=== PATIENT | female | born 1945 | race Caucasian/White ===

== ENCOUNTER → 2016-11-14 | Outpatient (CLI) | payer OTHER ==
[~2016-11-14] MED LIST: ADVIN50/60 INH; ALBUAER19 INH; ASPI-461 PO; BIOTCAP2 PO; CHOL1000 PO; CLB100 PO; CLIN300C10 PO; COEN1CAP17 PO; DIAZ2TAB PO; DOXY100C76 PO; DVN160125 PO; LEVO88TA PO; MECL1TAB42 PO; OMEP20CA59 PO; PRAV20TA PO; RIZA10TA18 PO; TRAM-10 PO; URSO300C4 PO; VERA120T8 PO
[2016-11-14 09:41] LABS: BASO % 0.7 %; BASO ABS # 0.04 K/uL (0-0.2); COMPLETE YES; EOS % 6.4 %; HEMATOCRIT 36.4 % (37-47); IG% 0.2 %; LYMPH % 33.6 %; LYMPH ABS # 1.94 K/uL (1.2-3.4); MEAN CELL VOLUME 85.6 fL (80-100); MEAN CORPUSCULAR HEMOGLOBIN 28.5 pg (25-34); MEAN CORPUSCULAR HGB CONC 33.2 g/dl (32-36); MONO % 5.2 %; NEUT % 53.9 %; PLATELET COUNT 202 K/uL (130-400); RED BLOOD COUNT 4.25 M/uL (4.2-5.4); WHITE BLOOD COUNT 5.77 K/uL (4.8-10.8)
[2016-11-14 09:47] LABS: URINE APPEARANCE CLEAR (CLEAR); URINE BILIRUBIN NEG (NEG); URINE COLOR YELLOW; URINE EPITHELIAL CELL AUTO 20-30 /lpf (0-5); URINE NITRITE NEG (NEG); URINE PH 5.5 (4.5-7.5); URINE SPECIFIC GRAVITY 1.029 (1.000-1.030); UROBILINOGEN NEG (NEG)
[2016-11-14 09:54] LABS: ESTIMATED AVERAGE GLUCOSE 128 mg/dl; HA1C FLAG Normal (Normal)
[2016-11-14 09:55] LABS: ALT/SGPT 22 U/L (12-78); AST/SGOT 21 U/L (15-37); BLOOD UREA NITROGEN 20 mg/dl (7-18); BUN/CREATININE RATIO 24.3 (10-20); CALCIUM 9.6 mg/dl (8.5-10.1); CARBON DIOXIDE 27 mmol/L (21-32); CHLORIDE 104 mmol/L (98-107); CHOLESTEROL 177 mg/dl (0-200); CREATININE 0.82 mg/dl (0.60-1.20); GLUCOSE 87 mg/dl (70-99); MANUAL MICROSCOPIC REQUIRED? NO; REVIEW REQ? NO; SODIUM 142 mmol/L (136-145); TRIGLYCERIDES 113 mg/dl (0-150); VERY LOW DENSITY LIPOPROT CALC 23 mg/dl
[2016-11-14 10:06] LABS: CHOLESTEROL/HDL RATIO 2.5; HDL CHOLESTEROL 70 mg/dl; LDL CHOLESTEROL CALCULATED 84 mg/dl
--- NOTE | 2016-11-18 11:29 | CODING QUERY MEDICAL NECESSITY ---
SUPPORTING DIAGNOSIS NEEDED A supporting diagnosis is required for the test/procedure performed on this patient in order for us to be reimbursed by the patient's insurance. Please provide a supporting diagnosis for the following test/procedure listed below next to the test name along with your signature. *If there is no additional diagnosis for this patient that would support the following test/procedure please document that below next to the test/procedure. Test(s)/Procedure(s) that require a supporting diagnosis: * GLYCATED HEMOGLOBIN DIAGNOSIS: * DOS: 11/14/16 Provider Signature: Date: Thank you Jessika Sinclair Health Information Management Once completed, please kindly fax back to [phone] For questions please call [phone]
== END | disposition home or self-care (01) ==
LOC: C.LAB 07:58
PROVIDERS: ATTEND Internal Medicine
DX: M81.0 Age-related osteoporosis without current pathological fracture (principal); M19.90 Unspecified osteoarthritis, unspecified site; E78.01 Familial hypercholesterolemia; R73.9 Hyperglycemia, unspecified

== ENCOUNTER → 2017-01-16 | Outpatient (CLI) | payer OTHER ==
[2017-01-16 14:54] LABS: BASO % 0.5 %; BASO ABS # 0.04 K/uL (0-0.2); COMPLETE YES; EOS % 3.9 %; HEMATOCRIT 39.9 % (37-47); IG% 0.1 %; LYMPH % 26.2 %; MEAN CELL VOLUME 88.1 fL (80-100); MEAN CORPUSCULAR HEMOGLOBIN 27.8 pg (25-34); MEAN CORPUSCULAR HGB CONC 31.6 g/dl (32-36); MEAN PLATELET VOLUME 11.9 fL (7.4-10.4); MONO % 4.6 %; NEUT % 64.7 %; PLATELET COUNT 202 K/uL (130-400); RED BLOOD COUNT 4.53 M/uL (4.2-5.4); WHITE BLOOD COUNT 7.62 K/uL (4.8-10.8)
[2017-01-16 15:34] LABS: ALT/SGPT 25 U/L (12-78); AST/SGOT 18 U/L (15-37); BLOOD UREA NITROGEN 19 mg/dl (7-18); CALCIUM 9.3 mg/dl (8.5-10.1); CARBON DIOXIDE 30 mmol/L (21-32); CHLORIDE 106 mmol/L (98-107); CREATININE 0.79 mg/dl (0.60-1.20); GLUCOSE 102 mg/dl (70-99); POTASSIUM 3.4 mmol/L (3.5-5.1); SODIUM 142 mmol/L (136-145)
[2017-01-16 15:45] LABS: ALB/GLOB RATIO 0.9 (0.9-2); ALKALINE PHOSPHATASE 117 U/L (45-117)
== END | disposition home or self-care (01) ==
LOC: C.LAB 12:59
PROVIDERS: ATTEND Physician Assistant
DX: H53.2 Diplopia (principal)

== ENCOUNTER → 2017-01-23 | Outpatient (CLI) | payer OTHER ==
[~2017-01-23] MED LIST changes: +GADAVIST IV PRN
--- NOTE | 2017-01-23 13:38 | DIAGNOSTIC IMAGING REPORT ---
MRI OF THE BRAIN WITHOUT AND WITH IV CONTRAST CLINICAL HISTORY: DOUBLE VISION COMPARISON STUDY: No previous studies for comparison. TECHNIQUE: MRI of the brain was performed from the vertex to the skull base utilizing various T1 and T2 weighted sequences. Following the IV administration of 6.5 mL of Gadavist contrast, additional enhanced images were obtained. The patient was imaged under 0.7 [place] open MRI scanner FINDINGS: Sagittal T1, axial diffusion, proton density and T2 weighted axial, coronal FLAIR, and pre and post axial T1-weighted images were acquired. These were supplemented with post gadolinium coronal T1 weighted images. No intra or extra-axial mass lesions are visualized. Axial diffusion-weighted images reveal no evidence of acute or subacute infarction. There is no evidence of ventricular dilatation. Proton density T2-weighted and FLAIR images reveal scattered foci of increased T2 signal within the white matter, likely on a small vessel basis. There are no abnormal flow voids. There is no evidence of pathologic enhancement. IMPRESSION: 1. No acute intracranial findings 2. No evidence of acute or subacute infarction 3. No evidence of intracranial mass 4. Foci of increased T2 signal within the white matter, likely on a small vessel basis Electronically signed by: Ghassan Worthy M.D. 01/23/2017 1:37 PM Dictated Date/Time: 01/23/2017 1:34 PM
== END | disposition home or self-care (01) ==
LOC: C.OPENMRI 12:28
PROVIDERS: ATTEND Physician Assistant
DX: H53.2 Diplopia (principal); R90.82 White matter disease, unspecified

== ENCOUNTER → 2017-03-06 | Outpatient (CLI) | payer OTHER ==
[~2017-03-06] MED LIST changes: -GADAVIST IV PRN
== END | disposition home or self-care (01) ==
LOC: C.RDSM 13:10
PROVIDERS: ATTEND Physical Medicine & Rehabilitation Sports Medicine
DX: Z96.659 Presence of unspecified artificial knee joint (principal)

== ENCOUNTER → 2017-04-12 | Outpatient (CLI) | payer OTHER ==
[2017-04-12 09:38] LABS: BASO % 0.4 %; BASO ABS # 0.03 K/uL (0-0.2); COMPLETE YES; EOS % 4.9 %; HEMATOCRIT 38.3 % (37-47); IG% 0.1 %; LYMPH % 28.8 %; LYMPH ABS # 1.95 K/uL (1.2-3.4); MEAN CELL VOLUME 88.5 fL (80-100); MEAN CORPUSCULAR HEMOGLOBIN 28.9 pg (25-34); MEAN CORPUSCULAR HGB CONC 32.6 g/dl (32-36); MONO % 4.4 %; NEUT % 61.4 %; PLATELET COUNT 207 K/uL (130-400); RED BLOOD COUNT 4.33 M/uL (4.2-5.4); WHITE BLOOD COUNT 6.77 K/uL (4.8-10.8)
[2017-04-12 09:49] LABS: ALT/SGPT 25 U/L (12-78); AST/SGOT 16 U/L (15-37); BLOOD UREA NITROGEN 21 mg/dl (7-18); BUN/CREATININE RATIO 23.5 (10-20); CALCIUM 9.5 mg/dl (8.5-10.1); CARBON DIOXIDE 33 mmol/L (21-32); CHLORIDE 105 mmol/L (98-107); CREATININE 0.89 mg/dl (0.60-1.20); GLUCOSE 87 mg/dl (70-99); SODIUM 141 mmol/L (136-145)
[2017-04-12 09:54] LABS: ALB/GLOB RATIO 0.9 (0.9-2); ALKALINE PHOSPHATASE 102 U/L (45-117)
[2017-04-12 09:58] LABS: URINE APPEARANCE CLEAR (CLEAR); URINE BILIRUBIN NEG (NEG); URINE COLOR YELLOW; URINE NITRITE NEG (NEG); URINE PH 7.5 (4.5-7.5); URINE SPECIFIC GRAVITY 1.009 (1.000-1.030); UROBILINOGEN NEG (NEG)
[2017-04-12 10:02] LABS: MANUAL MICROSCOPIC REQUIRED? NO; REVIEW REQ? NO
--- NOTE | 2017-04-18 11:58 | CODING QUERY MEDICAL NECESSITY ---
SUPPORTING DIAGNOSIS NEEDED A supporting diagnosis is required for the test/procedure performed on this patient in order for us to be reimbursed by the patient's insurance. Please provide a supporting diagnosis for the following test/procedure listed below next to the test name along with your signature. *If there is no additional diagnosis for this patient that would support the following test/procedure please document that below next to the test/procedure. Test(s)/Procedure(s) that require a supporting diagnosis: * VITAMIN D, 25-HYDROXY DIAGNOSIS: Provider Signature: Date: Thank you Noa Ramirez .[employer] Information Management Once completed, please kindly fax back to [phone] For questions please call [phone]
== END | disposition home or self-care (01) ==
LOC: C.LAB 08:19
PROVIDERS: ATTEND Internal Medicine
DX: E03.9 Hypothyroidism, unspecified (principal); I10 Essential (primary) hypertension; M19.90 Unspecified osteoarthritis, unspecified site; R73.9 Hyperglycemia, unspecified

== ENCOUNTER → 2017-06-27 | Outpatient (CLI) | payer OTHER | END | disposition home or self-care (01) | LOC: C.MAMM 07:48 | PROVIDERS: ATTEND Internal Medicine Rheumatology | DX: M85.852 Other specified disorders of bone density and structure, left thigh (principal); M85.851 Other specified disorders of bone density and structure, right thigh ==

== ENCOUNTER → 2017-07-25 | Outpatient (CLI) | payer OTHER ==
[2017-07-25 09:32] LABS: BASO % 0.6 %; BASO ABS # 0.04 K/uL (0-0.2); COMPLETE YES; EOS % 3.9 %; HEMATOCRIT 36.4 % (37-47); IG% 0.3 %; LYMPH % 30.3 %; LYMPH ABS # 2.01 K/uL (1.2-3.4); MEAN CELL VOLUME 87.9 fL (80-100); MEAN CORPUSCULAR HEMOGLOBIN 29.5 pg (25-34); MEAN CORPUSCULAR HGB CONC 33.5 g/dl (32-36); MEAN PLATELET VOLUME 11.3 fL (7.4-10.4); MONO % 6.2 %; NEUT % 58.7 %; PLATELET COUNT 209 K/uL (130-400); RED BLOOD COUNT 4.14 M/uL (4.2-5.4); WHITE BLOOD COUNT 6.64 K/uL (4.8-10.8)
[2017-07-25 09:47] LABS: ESTIMATED AVERAGE GLUCOSE 120 mg/dl; HA1C FLAG Normal (Normal)
[2017-07-25 10:05] LABS: CHOLESTEROL/HDL RATIO 2.3; THYROID STIMULATING HORMONE 2.85 uIu/ml (0.300-4.500)
== END | disposition home or self-care (01) ==
LOC: C.LAB 07:35
PROVIDERS: ATTEND Internal Medicine
DX: E78.01 Familial hypercholesterolemia (principal)

== ENCOUNTER → 2017-12-04 | Outpatient (CLI) | payer OTHER | END | disposition home or self-care (01) | LOC: C.RDSM 08:00 | PROVIDERS: ATTEND Physical Medicine & Rehabilitation Sports Medicine | DX: Z96.651 Presence of right artificial knee joint (principal) ==

== ENCOUNTER 2020-06-02 13:20 | Inpatient (IN) ==
[2020-06-02] MEDS ORDERED: ONDANSETRON INJ 2 MG/ML 2 ML VIAL IV STA (14:02)
[2020-06-02] MEDS ORDERED: SODIUM CHLORIDE 0.9% 1000ML 2,000 ML IV SCH (14:15)
[2020-06-02 14:32] LABS: Hematocrit (blood only) 38.3 % (37-47); Hemoglobin 13.3 g/dL (12.0-16.0); Mean Corpuscular Hemoglobin 28.7 pg (25-34); Mean Corpuscular Hgb Conc 34.7 g/dL (32-36); Mean Corpuscular Volume 82.5 fL (80-100); Mean Platelet Volume 10.9 fL (7.4-10.4); Platelet Count 252 K/uL (130-400); RDW Coefficient of Variation 15.1 % (11.5-14.5); RDW Standard Deviation 45.5 fL (36.4-46.3); Red Blood Count 4.64 M/uL (4.2-5.4); White Blood Count 5.28 K/uL (4.8-10.8)
[2020-06-02 14:40] LABS: INR 1.2 (0.9-1.1); Prothrombin Time 12.2 Seconds (9.0-12.0)
[2020-06-02 14:41] LABS: Albumin Level 2.4 gm/dl (3.4-5.0); BUN Creatinine Ratio 13.2 (10-20); Calcium 7.5 mg/dl (8.5-10.1); Est GFR (African American) 13.4; Est GFR (Non-African American) 11.6; Potassium 4.4 mmol/L (3.5-5.1)
--- NOTE | 2020-06-02 14:43 | Emergency Department Note ---
History of Present Illness General Chief complaint: Abdominal Pain Stated complaint: STOMACH PAINS/DIARRHEA Time Seen by Provider: 06/02/20 13:52 Source: patient Mode of arrival: ambulatory Limitations: no limitations History of Present Illness Provider complaint: Generalized weakness and diarrhea This is a 74-year-old female who presents to the ED with a chief complaint of generalized weakness, no appetite because food tastes bad, diffuse abdominal tenderness as well as diarrhea. She states that most of her symptoms started Monday evening, 4 days ago. She was seen here on Monday and had some laboratory studies that showed some electrolyte abnormalities but otherwise no significant abnormalities were noted. The patient was discharged home after hydration. She states that she is feeling worse now. She states that she has been having diarrhea once per hour today. She has a little bit of nausea. No vomiting. She has not had a fever. Home Medications Home Medications Medication Instructions Recorded Confirmed Type cholecalciferol (vitamin D3) 2,000 unit PO QAM 04/16/19 05/31/20 History [Vitamin D3] clindamycin HCl 600 mg PO DAILY PRN 04/16/19 05/31/20 History coenzyme Q10 [CoQ-10] 100 mg PO QAM 04/16/19 05/31/20 History diphenhydramine-acetaminophen 1 tab PO Q6H PRN 04/16/19 05/31/20 History [Tylenol PM Extra Strength] fluticasone propion-salmeterol 1 inh INHALATION QAM 04/16/19 05/31/20 History [Advair Diskus] hydroxychloroquine [Plaquenil] 200 mg PO QAM 04/16/19 05/31/20 History tramadol 50 mg PO Q6H PRN 04/16/19 05/31/20 History biotin 5,000 mcg disintegrating 5,000 mcg PO QAM tab 08/05/19 05/31/20 History tablet omeprazole 20 mg tablet,delayed 20 mg PO QAM #90 tab 09/23/19 05/31/20 Rx release verapamil 120 mg tablet,extended 120 mg PO QAM #90 tab 09/23/19 05/31/20 Rx release rizatriptan 10 mg disintegrating See Rx Instructions PO .COMPLEX 30 01/10/20 Rx tablet Days #9 tab prednisone 5 mg tablet 5 mg PO PRN tab 02/20/20 05/31/20 History cyclobenzaprine 5 mg tablet 5 mg PO BID PRN 30 Days #60 tab 02/26/20 05/31/20 Rx hydrocodone 5 mg-acetaminophen 325 0.5 tab PO UD PRN tab 05/21/20 05/31/20 History mg tablet sulfasalazine 500 mg tablet 1 g PO BID tab 05/21/20 05/31/20 History famotidine 20 mg PO BID #20 tab 05/31/20 Rx hydrochlorothiazide 12.5 mg PO QAM 05/31/20 05/31/20 History levothyroxine 100 mcg PO QAM 05/31/20 05/31/20 History losartan 100 mg PO QAM 05/31/20 05/31/20 History ondansetron 4 mg PO Q6H PRN #14 tab 05/31/20 Rx potassium chloride [Klor-Con M20] 20 meq PO BID #10 tab 05/31/20 Rx pravastatin 20 mg PO HS 05/31/20 05/31/20 History diazepam 5 mg tablet 5 mg PO ONCE PRN #5 tab 06/01/20 Rx Allergies Allergy/AdvReac Type Severity Reaction Status Date / Time Penicillins Allergy Mild RASH Verified 05/31/20 14:58 oxycodone Allergy Unknown severe Verified 05/31/20 14:58 nausea/vomiting clarithromycin [From Biaxin] Allergy Unknown Verified 05/31/20 14:58 codeine AdvReac Intermediate UPSET Verified 05/31/20 14:58 STOMACH, NO REACTIONS TO OTHER NARCOTICS Sulfa (Sulfonamide AdvReac Mild GI UPSET Verified 05/31/20 14:58 Antibiotics) adhesive AdvReac Unknown RASH AND Verified 05/31/20 14:58 REDNESS latex AdvReac Unknown Verified 05/31/20 14:58 Past Med/Surg History Medical History Asthma GERD (gastroesophageal reflux disease) HX: breast cancer 1999 - HAD RADIATION AND TAMOXIFEN Hyperlipidemia Hyperthyroidism Hypothyroid Migraine Osteoarthritis Osteopenia Positional vertigo Surgical History History of colonoscopy History of knee replacement procedure of right knee History of lumpectomy of left breast Hx of hernia repair Hx of right cataract extraction Family History Mother No pertinent family history Social History Smoking Status: Never smoker Second Hand Exposure: No; Hx Alcohol Use: No Hx Substance Use: Yes Substance Use Type Other:: CBD OIL Preferred Language: Palestinian Communication Ability: Effective Furnace Fitter Required: No Beliefs That Will Affect Care: None Current Living Situation: Spouse Other Information That Helps Us Care for You: No Feels Safe at Home: Yes Safety Concerns: Feels Safe At This Time Assistive Devices: Glasses and Walker Review of Systems A total of 10 systems reviewed and were otherwise negative Physical Exam Vital Signs Vital Signs - 24 hr 06/02/20 13:53 06/02/20 14:08 06/02/20 14:18 Temperature 36.4 C L Temperature Source Oral Pulse Rate 130 H 132 H Pulse Rate [Right Finger] Respiratory Rate 20 16 Respiratory Depth Normal Blood Pressure 71/44 L 81/45 L Blood Pressure [Right Arm] Blood Pressure Mean 53 54 Blood Pressure Mean [Right Arm] Blood Pressure Position Lying Pulse Oximetry 95 Oxygen Delivery Method Room Air Room Air Sepsis New/Unexplained Change in Mental Status No Sepsis Action Taken by Nursing Physician Notified 06/02/20 14:20 06/02/20 14:55 06/02/20 15:00 Temperature Temperature Source Pulse Rate 112 H Pulse Rate [Right Finger] 128 H 109 H Respiratory Rate 16 21 24 Respiratory Depth Blood Pressure 88/24 L Blood Pressure [Right Arm] 81/45 L 75/49 L Blood Pressure Mean 31 Blood Pressure Mean [Right Arm] 57 57 Blood Pressure Position Pulse Oximetry 98 Oxygen Delivery Method Room Air Sepsis New/Unexplained Change in Mental Status Sepsis Action Taken by Nursing 06/02/20 15:04 06/02/20 15:12 06/02/20 15:29 Temperature Temperature Source Pulse Rate 110 H 109 H Pulse Rate [Right Finger] Respiratory Rate 20 23 Respiratory Depth Blood Pressure 75/49 L 78/47 L 68/44 L Blood Pressure [Right Arm] Blood Pressure Mean 56 62 48 Blood Pressure Mean [Right Arm] Blood Pressure Position Pulse Oximetry Oxygen Delivery Method Sepsis New/Unexplained Change in Mental Status Sepsis Action Taken by Nursing 06/02/20 15:30 06/02/20 15:35 Temperature Temperature Source Pulse Rate 100 H 118 H Pulse Rate [Right Finger] Respiratory Rate 19 23 Respiratory Depth Blood Pressure 79/41 L 79/56 L Blood Pressure [Right Arm] Blood Pressure Mean 45 59 Blood Pressure Mean [Right Arm] Blood Pressure Position Pulse Oximetry Oxygen Delivery Method Sepsis New/Unexplained Change in Mental Status Sepsis Action Taken by Nursing CONSTITUTIONAL/VITAL SIGNS: Reviewed / noted above. GENERAL: Generally not well in appearance. INTEGUMENTARY: Warm, dry, and [place]. HEAD: Normocephalic. EYES: without scleral icterus or trauma. ENT/OROPHARYNX: clear and dry. LYMPHADENOPATHY/NECK: Is supple without lymphadenopathy or meningismus. RESPIRATORY: Lungs clear and equal. CARDIOVASCULAR: Rapid rate irregular rhythm. Systolic ejection murmur. GI/ABDOMEN: Soft and diffusely tender. No organomegaly or pulsatile mass. No rebound or guarding. Normal bowel sounds. EXTREMITIES: Warm and well perfused. NEUROLOGICAL: Intact without focal deficits. PSYCHIATRIC: normal affect. MUSCULOSKELETAL: Normally developed with good muscle tone. TRIAGE NURSING DOCUMENTATION REVIEWED. Course Administered Medications Discontinued Medications Hydrocortisone Sodium Succinate (Hydrocortisone Sod Succinate 100 Mg/2 Ml Vial) 50 mg IV NOW STA Stop: 06/02/20 15:24 Last Admin: 06/02/20 15:33 Dose: 50 mg Documented by: [id number] Sodium Chloride (Nss 1000ml) 2,000 mls @ 999 mls/hr IV .Q2H1M LUCIANO Stop: 06/02/20 16:15 Last Admin: 06/02/20 14:24 Dose: 999 mls/hr Documented by: [id number] Sodium Chloride (Nss 1000ml) 1,000 mls @ 999 mls/hr IV .Q1H1M ONE Stop: 06/02/20 16:13 Last Admin: 06/02/20 15:29 Dose: 999 mls/hr Documented by: [id number] Ondansetron HCl (Ondansetron Inj 2 Mg/Ml 2 Ml Vial) 4 mg IV NOW STA Stop: 06/02/20 14:03 Last Admin: 06/02/20 14:25 Dose: 4 mg Documented by: [id number] Medical Decision Making Differential Diagnosis Differential includes acute coronary syndrome, myocardial infarction, CVA, TIA, anemia, infection, pneumonia, UTI, pyelonephritis, poor nutrition, dehydration, electrolyte disturbance,hypoglycemia. Medical Records Attestation: I reviewed the patient's medical records. Laboratory Data Result diagrams: 06/02/20 13:51 06/02/20 13:51 Lab Results 06/02/20 06/02/20 06/02/20 Range/Units 13:51 13:51 13:51 WBC 5.28 (4.8-10.8) K/uL RBC 4.64 (4.2-5.4) M/uL Hgb 13.3 (12.0-16.0) g/dL Hct 38.3 (37-47) % MCV 82.5 (80-100) fL MCH 28.7 (25-34) pg MCHC 34.7 (32-36) g/dL RDW Std Deviation 45.5 (36.4-46.3) fL RDW Coeff of Lion 15.1 H (11.5-14.5) % Plt Count 252 (130-400) K/uL MPV 10.9 H (7.4-10.4) fL Neutrophils % (Manual) 25.2 % Lymphocytes % (Manual) 31.3 % Monocytes % (Manual) 10.4 % Eosinophils % (Manual) 0.9 % Basophils % (Manual) 0.9 % Metamyelocytes % (Man) 11.3 % Myelocytes % (Man) 3.5 % Neutrophils # (Manual) 1.33 L (1.4-6.5) K/uL Total Absolute Neuts 1.33 L (1.4-6.5) K/uL Lymphocytes # (Manual) 1.65 (1.2-3.4) K/uL Total Abs Lymphocytes 2.52 (1.2-3.4) K/uL Monocytes # (Manual) 0.55 (0.11-0.59) K/uL Eosinophils # (Manual) 0.05 (0-0.5) K/uL Basophils # (Manual) 0.05 (0-0.2) K/uL Metamyelocytes # (Man) 0.60 H (0-0) K/uL Myelocytes # (Manual) 0.18 H (0-0) K/uL Large Granular Lymphs 16.5 % # Lrg Granular Lymphs 0.87 K/uL Dohle Bodies 2+ Echinocytes 3+ PT 12.2 H (9.0-12.0) Seconds INR 1.2 H (0.9-1.1) Sodium 129 L (136-145) mmol/L Potassium 4.4 (3.5-5.1) mmol/L Chloride 97 L (98-107) mmol/L Carbon Dioxide 16 L (21-32) mmol/L Anion Gap 16.0 H (3-11) BUN 48 H (7-18) mg/dl Creatinine 3.61 H (0.6-1.2) mg/dl Est Cr Clr Drug Dosing 13.0 ml/min Est GFR ( Amer) 13.4 Est GFR (Non-Af Amer) 11.6 BUN/Creatinine Ratio 13.2 (10-20) Glucose 115 H (70-99) mg/dl Lactate (0.4-2.0) mmol/L Calcium 7.5 L (8.5-10.1) mg/dl Magnesium 2.0 (1.8-2.4) mg/dl Total Bilirubin 0.7 (0.2-1) mg/dl AST 36 (15-37) U/L ALT 36 (12-78) U/L Alkaline Phosphatase 131 H (45-117) U/L Total Creatine Kinase 429 H (26-192) U/L Troponin I 0.183 H* (0-0.045) ng/ml Total Protein 6.3 L (6.4-8.2) gm/dl Albumin 2.4 L (3.4-5.0) gm/dl Globulin 3.9 (2.5-4.0) gm/dl Albumin/Globulin Ratio 0.6 L (0.9-2) Lipase 88 (73-393) U/L TSH 4.380 (0.300-4.500) uIu/ml Stl C. diff Tox B Gene (Neg) 06/02/20 06/02/20 Range/Units 14:00 15:07 WBC (4.8-10.8) K/uL RBC (4.2-5.4) M/uL Hgb (12.0-16.0) g/dL Hct (37-47) % MCV (80-100) fL MCH (25-34) pg MCHC (32-36) g/dL RDW Std Deviation (36.4-46.3) fL RDW Coeff of Lion (11.5-14.5) % Plt Count (130-400) K/uL MPV (7.4-10.4) fL Neutrophils % (Manual) % Lymphocytes % (Manual) % Monocytes % (Manual) % Eosinophils % (Manual) % Basophils % (Manual) % Metamyelocytes % (Man) % Myelocytes % (Man) % Neutrophils # (Manual) (1.4-6.5) K/uL Total Absolute Neuts (1.4-6.5) K/uL Lymphocytes # (Manual) (1.2-3.4) K/uL Total Abs Lymphocytes (1.2-3.4) K/uL Monocytes # (Manual) (0.11-0.59) K/uL Eosinophils # (Manual) (0-0.5) K/uL Basophils # (Manual) (0-0.2) K/uL Metamyelocytes # (Man) (0-0) K/uL Myelocytes # (Manual) (0-0) K/uL Large Granular Lymphs % # Lrg Granular Lymphs K/uL Dohle Bodies Echinocytes PT (9.0-12.0) Seconds INR (0.9-1.1) Sodium (136-145) mmol/L Potassium (3.5-5.1) mmol/L Chloride (98-107) mmol/L Carbon Dioxide (21-32) mmol/L Anion Gap (3-11) BUN (7-18) mg/dl Creatinine (0.6-1.2) mg/dl Est Cr Clr Drug Dosing ml/min Est GFR ( Amer) Est GFR (Non-Af Amer) BUN/Creatinine Ratio (10-20) Glucose (70-99) mg/dl Lactate 2.1 H* (0.4-2.0) mmol/L Calcium (8.5-10.1) mg/dl Magnesium (1.8-2.4) mg/dl Total Bilirubin (0.2-1) mg/dl AST (15-37) U/L ALT (12-78) U/L Alkaline Phosphatase (45-117) U/L Total Creatine Kinase (26-192) U/L Troponin I (0-0.045) ng/ml Total Protein (6.4-8.2) gm/dl Albumin (3.4-5.0) gm/dl Globulin (2.5-4.0) gm/dl Albumin/Globulin Ratio (0.9-2) Lipase (73-393) U/L TSH (0.300-4.500) uIu/ml Stl C. diff Tox B Gene Negative Cdiff Gene (Neg) Imaging Data Radiologist's Impression: SINGLE VIEW CHEST CLINICAL HISTORY: Generalized weakness. FINDINGS: An AP, portable, upright chest radiograph is compared to study dated 04/30/2015. The cardiomediastinal silhouette is unremarkable noting mild atherosclerotic calcification of the thoracic aorta. There is mild elevation of right hemidiaphragm. The lungs and pleural spaces are clear. No pneumothorax is seen. The skeletal structures are osteopenic. The bony thorax is grossly intact. Surgical clips are noted in the left breast. IMPRESSION: No active disease in the chest. CT scan of the abdomen pelvis:IMPRESSION: 1. Small bowel wall thickening with multiple air-fluid levels. The findings are indicative of an enteritis. 2. No evidence of bowel obstruction. No evidence of free air 3. No evidence of pneumatosis. No evidence of portal venous gas 4. Nonspecific coarsened trabecular markings involving the right inferior pubic ramus ECG Data Attestation: I personally reviewed and interpreted this ECG as follows: Indication: weakness Rate (beats per minute): 128 Rhythm: atrial fibrillation Findings: no PVC and no ST elevation MDM Narrative This is a 74-year-old female who presents to the ED with a chief complaint of weakness, decreased p.o. intake and diarrhea for the past 4 days. She was seen 2 days ago for the same. Today she is hypotensive. Her BUN is 48 and creatinine is 3.6. Troponin is elevated 0.183. She has new onset A. fib with a heart rate in the 120s to 130s. She is acidotic with a bicarb of 16 and an anion gap of 16. Lipase was negative. Sodium is 129. Lactic acid was 2.1. CT scan of the abdomen pelvis shows enteritis. The patient was given 3 L of normal saline initially. She was given IV Zofran. She was given a stress dose hydrocortisone as she is on prednisone chronically. A 4th L of normal saline was started as the patient was going to the ICU. The patient clinically improved somewhat during her ED stay. Her tachycardia improved some. Her atrial fibrillation persisted. She remained hypotensive with blood pressures in the high 70s to low 80s during her ED stay. I was going to place a central line but the admission team spoke with the public relations account executive and they will do that in the ICU. Impression & Plan Diarrhea, Atrial fibrillation with RVR, New onset a-fib, Acute dehydration, Acute renal failure, Acute hyponatremia, Elevated troponin Critical Care Time Critical Care Time: Yes Total Critical Care Time: 40 I have personally spent 40 minutes of critical care time in the direct management of this patient. This includes bedside care, interpretation of diagnostic studies, and testing, discussion with consultants, patient, and family members, and other required patient management activities. This 40 minutes is in excess of all separately billable procedures. Discharge Plan Visit Data Chief Complaint: Abdominal Pain Stated Complaint: STOMACH PAINS/DIARRHEA ED Provider: Jamir Salomon Discharge Problem: Diarrhea, Atrial fibrillation with RVR, New onset a-fib, Acute dehydration, Acute renal failure, Acute hyponatremia, Elevated troponin Patient Disposition: Admitted As Inpatient Forms Stand Alone Forms: My [facility] Prescriptions Prescriptions: No Action omeprazole 20 mg tablet,delayed release (DR/EC) 20 mg PO QAM Qty: 90 RF: 3 verapamil 120 mg tablet extended release 120 mg PO QAM Qty: 90 RF: 3 rizatriptan 10 mg tablet,disintegrating See Rx Instructions PO .COMPLEX 30 Days Qty: 9 RF: 1 cyclobenzaprine 5 mg tablet 5 mg PO BID PRN (Reason: muscle spasm) 30 Days Qty: 60 RF: 0 diazepam 5 mg tablet 5 mg PO ONCE PRN (Reason: anxiety) Qty: 5 RF: 0 prednisone 5 mg tablet 5 mg PO PRN RF: 0 sulfasalazine 500 mg tablet 1 g PO BID RF: 0 hydrocodone-acetaminophen 5-325 mg tablet 0.5 tab PO UD PRN (Reason: pain) RF: 0 pravastatin 20 mg tablet 20 mg PO HS RF: 0 losartan 100 mg tablet 100 mg PO QAM RF: 0 hydrochlorothiazide 12.5 mg tablet 12.5 mg PO QAM RF: 0 levothyroxine 100 mcg capsule 100 mcg PO QAM RF: 0 potassium chloride [Klor-Con M20] 20 mEq tablet,ER particles/crystals 20 meq PO BID Qty: 10 RF: 0 famotidine 20 mg tablet 20 mg PO BID Qty: 20 RF: 0 ondansetron 4 mg tablet,disintegrating 4 mg PO Q6H PRN (Reason: nausea and vomiting) Qty: 14 RF: 0 fluticasone propion-salmeterol [Advair Diskus] 250-50 mcg/dose Blister With Device 1 inh INHALATION QAM RF: 0 clindamycin HCl 300 mg Capsule 600 mg PO DAILY PRN (Reason: DENTAL WORK) RF: 0 tramadol 50 mg Tablet 50 mg PO Q6H PRN (Reason: Pain) RF: 0 hydroxychloroquine [Plaquenil] 200 mg Tablet 200 mg PO QAM RF: 0 diphenhydramine-acetaminophen [Tylenol PM Extra Strength] 25-500 mg Tablet 1 tab PO Q6H PRN (Reason: Sleep) RF: 0 coenzyme Q10 [CoQ-10] 100 mg Capsule 100 mg PO QAM RF: 0 cholecalciferol (vitamin D3) [Vitamin D3] 2,000 unit Tablet 2,000 unit PO QAM RF: 0 biotin 5,000 mcg tablet,disintegrating 5,000 mcg PO QAM RF: 0 Referrals Referrals: Cuate Méndez MD [Primary Care Provider] -
--- NOTE | 2020-06-02 14:47 | XRay Report ---
SINGLE VIEW CHEST CLINICAL HISTORY: Generalized weakness. FINDINGS: An AP, portable, upright chest radiograph is compared to study dated 04/30/2015. The cardiom ediastinal silhouette is unremarkable noting mild atherosclerotic calcification of the thoracic aorta . There is mild elevation of right hemidiaphragm. The lungs and pleural spaces are clear. No pneumoth orax is seen. The skeletal structures are osteopenic. The bony thorax is grossly intact. Surgical cli ps are noted in the left breast. IMPRESSION: No active disease in the chest. ACT 112: Negative or not required by law. Electronically signed by: Nick Templeton M.D. 06/02/2020 2:46 PM
[2020-06-02 14:53] LABS: Albumin Globulin Ratio 0.6 (0.9-2); Bilirubin,Total 0.7 mg/dl (0.2-1); Globulin 3.9 gm/dl (2.5-4.0); Thyroid Stimulating Hormone 4.38 uIu/ml (0.300-4.500); Total Protein 6.3 gm/dl (6.4-8.2); Troponin I 0.183 ng/ml (0-0.045)
[2020-06-02] MEDS ORDERED: SODIUM CHLORIDE 0.9% 1000ML 1,000 ML IV ONE ×2 (15:13→16:46)
--- NOTE | 2020-06-02 15:19 | History & Physical Report ---
Date of Service June 02, 2020 Assessment & Plan (1) Gastroenteritis: 74 yo F with PMH inflammatory polyarthritis on chronic prednisone and Plaquenil, HTN, HLD, breast cancer treated with tamoxifen who was admitted for gastroenteritis, severe diarrhea and acidosis, hypovolemic shock and new onset Afib. Ct abd/Pelv showed thickening of bowel wall with air fluid loops, no pneumoperitoneum or portal venous gas or intestinal pneumatosis, most likely enteritis. unsure if viral or bacterial at this time blood cultures drawn, started on empiric Vanc, cefepime, metronidazole (penicillin allergy) Stool studies ordered (Stool WBC, culture, ova+parasites) Cdiff negative today, covid negative 2 days ago with no new contacts (2) Hypovolemic shock: s/p 3L of NS bolus in Ed without improvement in BP Goal MAP >60 most likely secondary to dehydration/diarrhea as no signs of bleeding or other volume losses received 1 dose of 50 mg hydrocortisone IV for BP support given chronic steroid use for arthritis. Continue 50 mg hydrocortisone Q6H -Follow lactate-was elevated at 2.1 on admission Admitting to ICU to start vasopressors Appreciate self propelled dredge operator consultation (3) JS (acute kidney injury): With creatinine up to 3.61 on admission from baseline of 1.1 two days ago With associated anion gap metabolic acidosis, hyponatremia Most likely prerenal from volume depletion in the setting of taking thiazide diuretics and ARB, however with hypotension could be ATN. With granular casts in urinalysis Checking fractional excretion of sodium, however has been taking hydrochlorothiazide and losartan at home CT abdomen/pelvis without evidence of obstruction in the system -Holding home losartan, hydrochlorothiazide, potassium -Hydrating aggressively with volume resuscitation and treating with vasopressors for severe hypotension Follow serial BMP (4) New onset a-fib: Started on heparin drip with bolus for anticoagulation/clot breakdown TTE ordered cardiology consulted Troponin elevated at 0.183, trending Q6, next at 7pm Not able to rate control given hypotension, but hydrating and hopefully this will help her rates (5) Diarrhea: As above (6) Atrial fibrillation with RVR: As above (7) Acute hyponatremia: Na of 129 on admission should improve with hydration, will continue to monitor BMP repeat at 7pm with repeat troponin (8) Elevated troponin: Likely myocardial demand ischemia in the setting of profound hypotension and rapid atrial fibrillation No ischemia on ECG and no chest pain Trend troponin Checking echocardiogram (9) Acute dehydration: As above (10) Inflammatory polyarthritis: normally on 5 mg pred daily IV steroids as above for stress dose steroids continue hydroxychloroquine per home regimen, but consider holding in the setting of acute infection -Sulfasalazine is also prescribed to her as of 1 month ago, however it is not on her home medication reconciliation-nonetheless, will hold (11) Hypothyroidism: continue home levothyroxine (12) Hypertension: hold all home BP meds in setting of hypotension (13) Essential familial hypercholesterolemia: continue statin (14) Aortic stenosis: Noted in history, but no echo in the [facility] Checking echocardiogram here (15) Asthma: not on maintenance therapy O2 as needed for O2 sat goal >90% DVT ppx: on heparin drip FEN/GI: NPO, NS at maintenance 125 cc/hr Code status: full code Dispo: ICU History of Present Illness 74 yo F presenting to ER with complaints of ongoing diarrhea and general lethargy. She was seen in the ER 2 nights ago, tested negative for covid, hydrated and discharged. Since then she states her diarrhea has worsened and is going more frequently. She describes the stool as loose, but not frankly watery. She denies any melanotic stool, hematochezia, vomiting, hematemesis, or nausea. She does have diffuse abdominal pain that is present as well as cramping that comes and goes. She denies any known fevers or sick contacts but has had chills and night sweats for the past 2 days. She denies having an appetite because nothing tastes good or seems appealing, but her has been ensuring she takes in fluid (had 10 oz prior to ER visit today and 48 oz yesterday). She reports her symptoms came on fairly quickly after eating a brownie from [employer] on Monday. Of note she was recently seen by her PCP on the and started on a medrol dose pack for worsening polyinflammatory arthritis, and then was placed on tramadol and tylenol for pain control on the after return of symptoms off of the dose pack. In the ER she was given 3L of bolus NS without improvement in BP, found to have lactic acid of 2.1, acidosis with bicarb of 16, anion gap of 16. She was also noted to be in new onset rapid atrial fibrillation and had a mildly positive troponin. She will be admitted for monitoring of lactic acidosis and hypovolemic shock secondary to a viral vs bacterial enteritis and possible bacteremia. Also with new onset rapid atrial fibrillation. Primary Care Provider: Cuate Méndez MD Allergies Allergy/AdvReac Type Severity Reaction Status Date / Time Penicillins Allergy Mild RASH Verified 06/02/20 17:35 oxycodone Allergy Unknown severe Verified 06/02/20 17:35 nausea/vomiting clarithromycin [From Biaxin] Allergy Unknown Verified 06/02/20 17:35 codeine AdvReac Intermediate UPSET Verified 06/02/20 17:35 STOMACH, NO REACTIONS TO OTHER NARCOTICS Sulfa (Sulfonamide AdvReac Mild GI UPSET Verified 06/02/20 17:35 Antibiotics) adhesive AdvReac Unknown RASH AND Verified 06/02/20 17:35 REDNESS latex AdvReac Unknown Verified 06/02/20 17:35 Home Medications Home Medications Medication Instructions Recorded Confirmed Type cholecalciferol (vitamin D3) 2,000 unit PO QAM 04/16/19 06/02/20 History [Vitamin D3] clindamycin HCl 600 mg PO DAILY PRN 04/16/19 06/02/20 History coenzyme Q10 [CoQ-10] 100 mg PO QAM 04/16/19 06/02/20 History diphenhydramine-acetaminophen 1 tab PO HS PRN 04/16/19 06/02/20 History [Tylenol PM Extra Strength] fluticasone propion-salmeterol 1 inh INHALATION QAM PRN 04/16/19 06/02/20 History [Advair Diskus] hydroxychloroquine [Plaquenil] 200 mg PO QAM 04/16/19 06/02/20 History tramadol 50 mg PO Q6H PRN 04/16/19 06/02/20 History biotin 5,000 mcg disintegrating 5,000 mcg PO QAM tab 08/05/19 06/02/20 History tablet omeprazole 20 mg tablet,delayed 20 mg PO QAM #90 tab 09/23/19 06/02/20 Rx release verapamil 120 mg tablet,extended 120 mg PO QAM #90 tab 09/23/19 06/02/20 Rx release rizatriptan 10 mg disintegrating See Rx Instructions PO .COMPLEX 30 01/10/20 06/02/20 Rx tablet Days #9 tab prednisone 5 mg tablet 5 mg PO PRN tab 02/20/20 06/02/20 History cyclobenzaprine 5 mg tablet 5 mg PO BID PRN 30 Days #60 tab 02/26/20 06/02/20 Rx hydrocodone 5 mg-acetaminophen 325 0.5 tab PO UD PRN tab 05/21/20 06/02/20 History mg tablet famotidine 20 mg PO BID #20 tab 05/31/20 06/02/20 Rx hydrochlorothiazide 12.5 mg PO QAM 05/31/20 06/02/20 History levothyroxine 100 mcg PO QAM 05/31/20 06/02/20 History losartan 100 mg PO QAM 05/31/20 06/02/20 History ondansetron 4 mg PO Q6H PRN #14 tab 05/31/20 06/02/20 Rx potassium chloride [Klor-Con M20] 20 meq PO BID #10 tab 05/31/20 06/02/20 Rx pravastatin 20 mg PO HS 05/31/20 06/02/20 History Past Med/Surg History Medical History Aortic stenosis Asthma Asthma Atrial fibrillation with RVR Breast cancer Cervical radiculopathy Cluster headache Degeneration of cervical intervertebral disc Essential familial hypercholesterolemia GERD (gastroesophageal reflux disease) HX: breast cancer 1999 - HAD RADIATION AND TAMOXIFEN Hyperlipidemia Hypertension Hyperthyroidism Hypothyroid Hypovolemic shock Inflammatory polyarthritis Malignant melanoma of skin Migraine Osteoarthritis Osteopenia Positional vertigo SNHL (sensorineural hearing loss) Surgical History History of colonoscopy History of knee replacement procedure of right knee History of lumpectomy of left breast Hx of hernia repair Hx of right cataract extraction Family History Mother No pertinent family history Social History Smoking Status: Never smoker Second Hand Exposure: No; Hx Alcohol Use: No Hx Substance Use: Yes Substance Use Type Other:: CBD OIL Preferred Language: Bahamian Communication Ability: Effective Deportation Examiner Required: No Beliefs That Will Affect Care: None Current Living Situation: Spouse Feels Safe at Home: Yes Assistive Devices: Glasses, Oxygen - Continuous and Walker Review of Systems Constitutional: + chills, + sweats, + fatigue, + weakness and + anorexia; no fever and no body aches Ear, Nose, Mouth, Throat: no nasal congestion and no sore throat Respiratory: no cough, no dyspnea, no pain on inspiration and no wheezing Cardiovascular: no chest pain, no palpitations, no lightheadedness, no syncope and no edema Gastrointestinal: + abdominal pain, + cramping, + change in bowel habits and + diarrhea/loose stools; no nausea, no vomiting, no constipation, no blood in stools and no melena Genitourinary: no dysuria and no hematuria Neurologic: no tingling and no numbness Physical Exam Physical Exam: Constitutional: thin, in no apparent distress, laying under multiple blankets in bed. Eyes: EOMI, pupils equal and reactive bilaterally, no scleral icterus Mouth: dry mucous membranes Cardiac: tachycardic, irregularly irregular rhythm, normal S1, S2 Pulm: CTA BL, no wheezes, rhonchi, crackles or rubs, moving air well throughout both lungs Abd: soft, tender throughout all quadrants, no rebound, no guarding, hyperactive bowel sounds, nondistended, Extremities: poor peripheral pulses, no edema, cold hands and fingers Neuro: no focal deficits, moving all 4 limbs, A&Ox3 Results & Data Results & Data ([facility]) Vital Signs (Past 12 Hours) Vital Signs Temp Pulse Pulse Resp BP BP Pulse Ox 06/02/20 15:00 109 H 24 75/49 L 98 06/02/20 14:20 128 H 16 81/45 L 06/02/20 13:53 36.4 C L 130 H 20 71/44 L 95 Laboratory Results WBC 5.28 K/uL (4.8-10.8) 06/02/20 13:51 RBC 4.64 M/uL (4.2-5.4) 06/02/20 13:51 Hgb 13.3 g/dL (12.0-16.0) 06/02/20 13:51 Hct 38.3 % (37-47) 06/02/20 13:51 MCV 82.5 fL (80-100) 06/02/20 13:51 MCH 28.7 pg (25-34) 06/02/20 13:51 MCHC 34.7 g/dL (32-36) 06/02/20 13:51 RDW Std Deviation 45.5 fL (36.4-46.3) 06/02/20 13:51 RDW Coeff of Lion 15.1 % (11.5-14.5) H 06/02/20 13:51 Plt Count 252 K/uL (130-400) 06/02/20 13:51 MPV 10.9 fL (7.4-10.4) H 06/02/20 13:51 Neutrophils % (Manual) 25.2 % 06/02/20 13:51 Lymphocytes % (Manual) 31.3 % 06/02/20 13:51 Monocytes % (Manual) 10.4 % 06/02/20 13:51 Eosinophils % (Manual) 0.9 % 06/02/20 13:51 Basophils % (Manual) 0.9 % 06/02/20 13:51 Metamyelocytes % (Man) 11.3 % 06/02/20 13:51 Myelocytes % (Man) 3.5 % 06/02/20 13:51 Neutrophils # (Manual) 1.33 K/uL (1.4-6.5) L 06/02/20 13:51 Total Absolute Neuts 1.33 K/uL (1.4-6.5) L 06/02/20 13:51 Lymphocytes # (Manual) 1.65 K/uL (1.2-3.4) 06/02/20 13:51 Total Abs Lymphocytes 2.52 K/uL (1.2-3.4) 06/02/20 13:51 Monocytes # (Manual) 0.55 K/uL (0.11-0.59) 06/02/20 13:51 Eosinophils # (Manual) 0.05 K/uL (0-0.5) 06/02/20 13:51 Basophils # (Manual) 0.05 K/uL (0-0.2) 06/02/20 13:51 Metamyelocytes # (Man) 0.60 K/uL (0-0) H 06/02/20 13:51 Myelocytes # (Manual) 0.18 K/uL (0-0) H 06/02/20 13:51 Large Granular Lymphs 16.5 % 06/02/20 13:51 # Lrg Granular Lymphs 0.87 K/uL 06/02/20 13:51 Dohle Bodies 2+ 06/02/20 13:51 Echinocytes 3+ 06/02/20 13:51 PT 12.2 Seconds (9.0-12.0) H 06/02/20 13:51 INR 1.2 (0.9-1.1) H 06/02/20 13:51 APTT 33.6 Seconds (21.0-31.0) H 06/02/20 19:22 PTT Ratio 1.2 06/02/20 19:22 Sodium 134 mmol/L (136-145) L 06/02/20 18:58 Potassium 4.3 mmol/L (3.5-5.1) 06/02/20 18:58 Chloride 110 mmol/L (98-107) H 06/02/20 18:58 Carbon Dioxide 12 mmol/L (21-32) L 06/02/20 18:58 Anion Gap 13.0 (3-11) H 06/02/20 18:58 BUN 46 mg/dl (7-18) H 06/02/20 18:58 Creatinine 2.73 mg/dl (0.6-1.2) H D 06/02/20 18:58 Est Cr Clr Drug Dosing 17.2 ml/min 06/02/20 18:58 Est GFR ( Amer) 18.8 06/02/20 18:58 Est GFR (Non-Af Amer) 16.2 06/02/20 18:58 BUN/Creatinine Ratio 16.7 (10-20) 06/02/20 18:58 Glucose 129 mg/dl (70-99) H 06/02/20 18:58 Lactate 0.8 mmol/L (0.4-2.0) 06/02/20 19:01 Calcium 5.8 mg/dl (8.5-10.1) L* D 06/02/20 18:58 Magnesium 2.0 mg/dl (1.8-2.4) 06/02/20 13:51 Total Bilirubin 0.7 mg/dl (0.2-1) 06/02/20 13:51 AST 36 U/L (15-37) 06/02/20 13:51 ALT 36 U/L (12-78) 06/02/20 13:51 Alkaline Phosphatase 131 U/L (45-117) H 06/02/20 13:51 Total Creatine Kinase 429 U/L (26-192) H 06/02/20 13:51 Troponin I 0.108 ng/ml (0-0.045) H* 06/02/20 18:58 Total Protein 6.3 gm/dl (6.4-8.2) L 06/02/20 13:51 Albumin 2.4 gm/dl (3.4-5.0) L 06/02/20 13:51 Globulin 3.9 gm/dl (2.5-4.0) 06/02/20 13:51 Albumin/Globulin Ratio 0.6 (0.9-2) L 06/02/20 13:51 Lipase 88 U/L (73-393) 06/02/20 13:51 Procalcitonin 18.83 ng/ml (0-0.5) H 06/02/20 13:51 TSH 4.380 uIu/ml (0.300-4.500) 06/02/20 13:51 Nasal Screen MRSA (PCR) Negative (Negative) 06/02/20 17:19 Stl C. diff Tox B Gene Negative Cdiff Gene (Neg) 06/02/20 14:00 Supervising Physician Co-Signing Physician Notes I personally examined the patient and verified all [place] points of history and exam, discussed case, and agree with decision making with Dr. Winkelr with the following additions/exceptions: This patient is a 74-year-old female with a history of HTN, inflammatory polyarthralgia on chronic prednisone, hypothyroidism, hyperlipidemia, migraine headaches and cervical radiculopathy, asthma, GERD, who presents to the ER for the second time in 2 days with severe diarrhea, abdominal pain, and poor p.o. intake. She was found to have acute kidney injury, hypovolemic shock from dehydration, and new onset rapid atrial fibrillation with a mildly elevated troponin. She reports the diarrhea came on shortly after eating a brownie from [employer], but otherwise she ate pizza that her also ate and he is not sick. She has had no known COVID contacts and had a negative COVID test just 2 days ago here in this ER. She had a negative C. difficile in the ER. She denies any chest pain or shortness of breath, no cough. She has been feeling lightheaded with the severe diarrhea but it is better if she lies flat. She is making some urine but not as much as she normally does. She denies any history of atrial fibrillation in the past. History and ROS reviewed as above Vitals reviewed Gen: AAOx3, NAD, appears ill, mentating well and converses appropriately HEENT: Anicteric sclerae, EOMI, oral mucosa and tongue quite dry CV: Irregularly irregular and tachycardic, no mgr nl S1S2 Pulm: CTAB no wcr Abd: +BS soft, mild diffuse tenderness palpation across lower abdomen without guarding or rebound, ND no masses or hernias Ext: No edema, 2+ DP pulses Skin: No rashes, warm/dry Neuro: Full strength throughout Laboratories reviewed Imaging reviewed ECG reviewed Case discussed with the self propelled dredge operator, Dr. Hyatt 74-year-old female with history noted as above, here with hypovolemic shock secondary to acute gastroenteritis with acute kidney injury and new onset rapid atrial fibrillation. Plan outlined as above No evidence of ischemic bowel on imaging Admitting to ICU for vasopressors and continued volume support Needs stress dose steroids for history of chronic prednisone use-IV hydrocortisone ordered Follow serial chemistries for renal function and electrolyte monitoring Hopeful that atrial fibrillation rates will improve with volume repletion, recommend anticoagulation with IV heparin drip. Cardiology consultation echocardiogram ordered Serial troponins ordered Holding home antihypertensives Stool cultures, O&P, and norovirus ordered. COVID-19- from 2 days ago and C. difficile negative here. -Continue empiric antibiotics in case of bacterial infection. Follow blood cultures Resident Activity Tracking Resident Involvement: Resident Care Provided Care Provided: Adult Hospital Medicine (1) Diarrhea Diarrhea type: unspecified type Qualified Code(s): R19.7 - Diarrhea, unspecified
[2020-06-02] MEDS ORDERED: HYDROCORTISONE SOD SUCCINATE 100 MG/2 ML VIAL IV STA ×2 (15:23→18:54)
--- NOTE | 2020-06-02 15:33 | CT Scan Report ---
CT SCAN OF THE ABDOMEN AND PELVIS WITHOUT CONTRAST CLINICAL HISTORY: Diffuse abdominal pain. Diarrhea. COMPARISON STUDY: August 2009 TECHNIQUE: CT scan of the abdomen and pelvis was performed from the lung bases to the proximal femurs . Images are reviewed in the axial, sagittal, and coronal planes. IV contrast was not administered fo r this examination. A dose lowering technique was utilized adhering to the principles of ALARA. CT DOSE: 443.69 mGy.cm FINDINGS: Lower chest: There is respiratory motion artifact. There are no pleural effusions. There is minor bas ilar atelectasis Liver: There is minimal hepatic steatosis. No focal hepatic masses are visualized. Gallbladder: Surgically absent Spleen: Normal in size and attenuation. Pancreas: Unremarkable. Adrenal glands: Unremarkable. Kidneys: No renal, ureteral, or bladder calculi are visualized. Bowel: There are no transition zones to indicate bowel obstruction. There is no evidence of acute div erticulitis. There is fluid present at the right colon. There is moderate multilevel small bowel wall thickening most pronounced within the pelvis. The findings are consistent with an enteritis. There i s minimal infiltration of the mesentery. There is no pneumatosis. There is no portal venous gas. Peritoneum: There is no intraperitoneal free air or abdominal ascites. Vasculature: The abdominal aorta is normal in course and caliber. Adenopathy: None. Pelvic viscera: The uterus appears surgically absent. Skeletal structures: There are coarsened trabecular pattern involving the right inferior pubic ramus. IMPRESSION: 1. Small bowel wall thickening with multiple air-fluid levels. The findings are indicative of an ente ritis. 2. No evidence of bowel obstruction. No evidence of free air 3. No evidence of pneumatosis. No evidence of portal venous gas 4. Nonspecific coarsened trabecular markings involving the right inferior pubic ramus ACT 112: Negative or not required by law. Electronically signed by: Ghassan Worthy M.D. 06/02/2020 3:32 PM
[2020-06-02 15:35] LABS: ALC (manual) 2.52 K/uL (1.2-3.4); ANC (manual) 1.33 K/uL (1.4-6.5); Basophils # (manual) 0.05 K/uL (0-0.2); Basophils % (manual) 0.9 %; Dohle Bodies 2+; Echinocytes 3+; Eosinophils # (manual) 0.05 K/uL (0-0.5); Eosinophils % (manual) 0.9 %; Large Granular Lymph # (manua 0.87 K/uL; Large Granular Lymph % (manual) 16.5 %; Lymphocytes # (manual) 1.65 K/uL (1.2-3.4); Lymphocytes % (manual) 31.3 %; Metamyelocytes % (manual) 11.3 %; Monocytes # (manual) 0.55 K/uL (0.11-0.59); Monocytes % (manual) 10.4 %; Myelocytes # (manual) 0.18 K/uL (0-0); Myelocytes % (manual) 3.5 %; Neutrophils # (manual) 1.33 K/uL (1.4-6.5); Neutrophils % (manual) 25.2 %
[2020-06-02] MEDS ORDERED: VANCOMYCIN HCL 1,000 MG/270 ML BAG IV STA (16:15)
[2020-06-02] MEDS ORDERED: CEFEPIME 2,000 MG/20 ML VIAL IV STA (16:17)
[2020-06-02] MEDS ORDERED: HEPARIN SODIUM/DEXTROSE 25,000 UNITS/500 ML BAG IV SCH (16:45)
[2020-06-02] MEDS ORDERED: CEFEPIME 2,000 MG/20 ML VIAL ONE (16:52)
[2020-06-02] MEDS ORDERED: HEPARIN 25000 UNIT/500 ML D5W IV ONE (16:53)
[2020-06-02] MEDS ORDERED: HEPARIN SOD 5,000 UNIT/0.5 ML VIAL ONE (16:58)
[2020-06-02] MEDS ORDERED: VANCOMYCIN CONSULT ACTIVE PRN (17:56)
[2020-06-02] MEDS ORDERED: ICU PROTOCOL FOR HYPERGLYCEMIA PRN (17:58)
[2020-06-02] MEDS ORDERED: CEFEPIME 2,000 MG in SYRINGE 0 ML IV STA (18:00)
[2020-06-02] MEDS ORDERED: VANCOMYCIN HCL 1,500 MG in SODIUM CHLORIDE 0.9% 500 ML IV STA (18:01)
--- NOTE | 2020-06-02 18:19 | Critical Care Consultation ---
Date of Consultation June 02, 2020 Assessment & Plan (1) Hypovolemic shock: This patient was discussed with the bedside nurse. I also discussed the case with her primary care physician Dr. Perea. Assessment and Plan: -Hypovolemic versus septic shock from gastroenteritis, possible component of adrenal insufficiency -New onset atrial fibrillation likely related to shock -JS -Polyarthropathy on hydroxychloroquine and prednisone chronically Neurologic: No issues currently. Pulmonary: Patient saturating well on room air. Cardiovascular: New onset atrial fibrillation likely sepsis mediated. TSH within normal limits. Treat the underlying cause at this time. We will obtain an echocardiogram tomorrow and a cardiology consultation. Unclear timeframe of atrial fibrillation. We will hold on anticoagulation for today. Will use phenylephrine to maintain mean arterial pressure above 65. Noted mildly elevated. Trend. Gastrointestinal: Patient with evidence of gastroenteritis on CT abdomen. COVID-19 testing negative. C. difficile testing negative. Will check neurovirus testing. May consult gastroenterology tomorrow. Starting vancomycin, Flagyl and cefepime for possible GI source of infection. Lactate mildly elevated 2.1. Possible ischemic bowel given prolonged hypotension. Lipase within normal limits. Alk phos mildly elevated. LFTs within normal limits. Albumin very low. Renal: Patient with new onset hyponatremia and JS. Likely prerenal. Will obtain a FeNa. Continue hydration. Will use colloids at this point given that she is received 4 L of crystalloid. She has mild anion gap. Infectious disease: Antibiotics as noted above. Possible source is GI. Blood cultures pending. Urinalysis negative. Hematologic: No significant issues currently. DVT prophylaxis with heparin 3 times daily.. Endocrine: Hydrocortisone 50 mg every 8 hours for possible adrenal insufficiency in the setting of chronic prednisone use. F/E/N: N.p.o. for now. She has 2 peripheral IVs. Will need a Rodriguez catheter. She is status post 4 L of crystalloids. We will give 500 mL bolus of albumin. VTE prophylaxis: Heparin 3 times daily. CODE STATUS: Full code. Family at bedside: updated at bedside. Disposition: Remain in ICU. I have personally spent 71 minutes of critical care time in the direct management of this patient. This is a life/limb threatening event. This includes time spent evaluating patient, direct bedside care, chart review, placing orders, interpretation of diagnostic studies, discussion with consultants, patient, and family members, as well as other required patient management activities. This time is exclusive of all separately billable procedures, and teaching time and separate from and in addition to any other critical care service time. Thank you for allowing us to participate in the care of this patient. (2) New onset a-fib: (3) Gastroenteritis: (4) Acute hyponatremia: History of Present Illness Reason for Consultation: Septic shock Requesting Physician: Dr. Tammie Pace Attending Physician: Dr. Tammie Pace History of Present Illness 74-year-old female with a history of cervical radiculopathy, inflammatory polyarthritis, hypertension and diabetes mellitus who is presenting to the hospital due to 2 weeks of abdominal pain and diarrhea. She was recently started on sulfasalazine and after that noticed diarrhea. He was also previously on prednisone and hydroxychloroquine. She received IV hydrocortisone in the ER. She is complaining of severe diffuse abdominal pain and tenderness. She actually was incontinent of stool this morning. She denies any chest pain. She did have some retching. Denies any shortness of breath. No recent sick contacts. I did speak with her primary care physician Dr. Méndez who noted that he checked in for C. difficile and Giardia which were both negative. She denies being on antibiotics recently. Coronavirus testing was negative today. C. difficile toxin negative today as well. Notably, the patient was also in the ER 05/31/2020 for general malaise and weakness. Her potassium at that time was 2.6 and magnesium was 1.7. She received repletion and IV fluids with improvement of her symptoms. Allergies Allergy/AdvReac Type Severity Reaction Status Date / Time Penicillins Allergy Mild RASH Verified 06/02/20 17:35 oxycodone Allergy Unknown severe Verified 06/02/20 17:35 nausea/vomiting clarithromycin [From Biaxin] Allergy Unknown Verified 06/02/20 17:35 codeine AdvReac Intermediate UPSET Verified 06/02/20 17:35 STOMACH, NO REACTIONS TO OTHER NARCOTICS Sulfa (Sulfonamide AdvReac Mild GI UPSET Verified 06/02/20 17:35 Antibiotics) adhesive AdvReac Unknown RASH AND Verified 06/02/20 17:35 REDNESS latex AdvReac Unknown Verified 06/02/20 17:35 Home Medications Home Medications Medication Instructions Recorded Confirmed Type cholecalciferol (vitamin D3) 2,000 unit PO QAM 08/06/19 09/22/20 History [Vitamin D3] clindamycin HCl 600 mg PO DAILY PRN 04/16/19 06/02/20 History coenzyme Q10 [CoQ-10] 100 mg PO QAM 04/16/19 06/02/20 History diphenhydramine-acetaminophen 1 tab PO HS PRN 04/16/19 06/02/20 History [Tylenol PM Extra Strength] fluticasone propion-salmeterol 1 inh INHALATION QAM PRN 04/16/19 06/02/20 History [Advair Diskus] hydroxychloroquine [Plaquenil] 200 mg PO QAM 04/16/19 06/02/20 History tramadol 50 mg PO Q6H PRN 04/16/19 06/02/20 History biotin 5,000 mcg disintegrating 5,000 mcg PO QAM tab 08/05/19 06/02/20 History tablet omeprazole 20 mg tablet,delayed 20 mg PO QAM #90 tab 09/23/19 06/02/20 Rx release verapamil 120 mg tablet,extended 120 mg PO QAM #90 tab 09/23/19 06/02/20 Rx release rizatriptan 10 mg disintegrating See Rx Instructions PO .COMPLEX 30 01/10/20 06/02/20 Rx tablet Days #9 tab prednisone 5 mg tablet 5 mg PO PRN tab 02/20/20 06/02/20 History cyclobenzaprine 5 mg tablet 5 mg PO BID PRN 30 Days #60 tab 02/26/20 06/02/20 Rx hydrocodone 5 mg-acetaminophen 325 0.5 tab PO UD PRN tab 05/21/20 06/02/20 History mg tablet famotidine 20 mg PO BID #20 tab 05/31/20 06/02/20 Rx hydrochlorothiazide 12.5 mg PO QAM 05/31/20 06/02/20 History levothyroxine 100 mcg PO QAM 05/31/20 06/02/20 History losartan 100 mg PO QAM 05/31/20 06/02/20 History ondansetron 4 mg PO Q6H PRN #14 tab 05/31/20 06/02/20 Rx potassium chloride [Klor-Con M20] 20 meq PO BID #10 tab 05/31/20 06/02/20 Rx pravastatin 20 mg PO HS 05/31/20 06/02/20 History Patient History Medical History Asthma GERD (gastroesophageal reflux disease) HX: breast cancer 1999 - HAD RADIATION AND TAMOXIFEN Hyperlipidemia Hyperthyroidism Hypothyroid Migraine Osteoarthritis Osteopenia Positional vertigo Surgical History History of colonoscopy History of knee replacement procedure of right knee History of lumpectomy of left breast Hx of hernia repair Hx of right cataract extraction Family History Mother No pertinent family history Social History Smoking Status: Never smoker Second Hand Exposure: No; Hx Alcohol Use: No Hx Substance Use: Yes Substance Use Type Other:: CBD OIL Preferred Language: [place] Communication Ability: Effective Crane Assembler Required: No Beliefs That Will Affect Care: None Current Living Situation: Spouse Other Information That Helps Us Care for You: No Feels Safe at Home: Yes Safety Concerns: Feels Safe At This Time Assistive Devices: Glasses and Walker Review of Systems Review of Systems: All systems reviewed & are unremarkable except as noted in HPI & below Physical Exam Constitutional: + ill appearing; no acute distress Eyes: PERRL, conjunctivae normal, anicteric sclerae ENMT: external ear and nose normal, oropharynx normal Neck: normal visual inspection Respiratory: normal respiratory effort, lungs clear to auscultation Cardiovascular: RRR, no murmur, no edema Gastrointestinal (Abdomen): Inspection/Auscultation: + abdomen distended Percussion/Palpation: + abdomen tender and + guarding Musculoskeletal: no cyanosis or clubbing, extremities motor strength 5/5 Skin: no rashes, warm and dry Neurologic: PERRL, EOMI, accommodation nl, no face palsy, no dysarthria Psychiatric: A+Ox3, euthymic affect Results & Data Results & Data ([facility]) Vital Signs (Past 12 Hours) Vital Signs Temp Pulse Pulse Resp BP BP Pulse Ox 06/02/20 17:54 108 H 22 80/47 L 98 06/02/20 17:30 106 H 24 76/56 L 06/02/20 17:25 127 H 19 70/51 L 06/02/20 17:20 119 H 19 85/47 L 83 L 06/02/20 17:15 94 H 23 70/46 L 95 06/02/20 17:10 97 H 22 71/51 L 97 06/02/20 17:05 111 H 20 74/43 L 06/02/20 17:00 104 H 20 72/50 L 06/02/20 16:55 105 H 21 75/49 L 92 06/02/20 16:50 105 H 26 H 78/51 L 06/02/20 16:45 110 H 23 81/58 L 06/02/20 16:40 108 H 23 76/50 L 83 L 06/02/20 16:35 105 H 23 64/47 L 90 06/02/20 16:30 112 H 22 59/42 L 98 06/02/20 16:28 113 H 22 73/46 L 100 06/02/20 16:25 96 H 17 68/45 L 89 L 06/02/20 16:20 106 H 19 78/50 L 91 06/02/20 16:15 101 H 19 84/58 L 100 06/02/20 16:10 113 H 20 68/48 L 100 06/02/20 16:05 112 H 22 78/56 L 06/02/20 16:04 117 H 24 77/49 L 06/02/20 16:00 104 H 24 77/54 L 92 06/02/20 15:55 113 H 21 81/53 L 93 06/02/20 15:50 118 H 24 87/57 L 06/02/20 15:45 116 H 21 84/55 L 06/02/20 15:43 99 H 24 75/47 L 06/02/20 15:40 102 H 25 H 79/44 L 06/02/20 15:35 118 H 23 79/56 L 06/02/20 15:30 100 H 19 79/41 L 06/02/20 15:29 109 H 23 68/44 L 06/02/20 15:12 78/47 L 06/02/20 15:04 110 H 20 75/49 L 06/02/20 15:00 109 H 24 75/49 L 98 06/02/20 14:55 112 H 21 88/24 L 06/02/20 14:20 128 H 16 81/45 L 06/02/20 14:18 132 H 16 81/45 L 06/02/20 13:53 97.5 F L 130 H 20 71/44 L 95 vital signs, labs and imaging reviewed Coding Level of Care Code Critical Care 1st 30-74 mins Diagnoses Hypovolemic shock R57.1 New onset a-fib I48.91 Gastroenteritis K52.9 Acute hyponatremia E87.1 Time Spent (min) 71
[2020-06-02] MEDS ORDERED: STAT IV Infusion **Titration per Protocol STA ×2 (18:20→20:07)
[2020-06-02] MEDS ORDERED: HYDROCORTISONE SOD SUCCINATE 100 MG/2 ML VIAL IV SCH (18:30)
[2020-06-02] MEDS ORDERED: ALBUMIN 5% 250 ML IV STA (18:32)
[2020-06-02] MEDS ORDERED: AMIODARONE 150MG / 100ML D5W IV ONE (18:38)
[2020-06-02] MEDS: PHENYLEPHRINE HCL 20 MG in DEXTROSE 5% 500 ML IV SCH ×3 (18:47→23:04)
[2020-06-02] MEDS ORDERED: metroNIDAZOLE 500 MG/100 ML BAG IV SCH (18:54)
[2020-06-02] MEDS ORDERED: SODIUM CHLORIDE 0.9% 1000ML 1,000 ML IV SCH (19:00)
[2020-06-02 19:33] LABS: BUN Creatinine Ratio 16.7 (10-20); Calcium 5.8 mg/dl (8.5-10.1); Creatinine Clr Calc Pharmacy 17.2 ml/min; Est GFR (African American) 18.8; Est GFR (Non-African American) 16.2; Potassium 4.3 mmol/L (3.5-5.1)
[2020-06-02 19:39] LABS: Troponin I 0.108 ng/ml (0-0.045)
[2020-06-02 19:43] LABS: Partial Thromboplastin Ratio 1.2; Partial Thromboplastin Time 33.6 Seconds (21.0-31.0)
[2020-06-02] MEDS: metroNIDAZOLE 500 MG/100 ML BAG IV SCH (19:43)
--- NOTE | 2020-06-02 20:01 | Procedure Note ---
Procedure Note Date of Service June 02, 2020 Procedure: Internal Jugular Central Line Placement Attending: Dr. Hyatt APC: Fede Julien PA-C Indication: Central Drug Administration, Poor Venous Access, Multiple Lab Draws Necessary, etc. Anesthesia: Lidocaine 1% Consent was signed and placed on the chart prior to procedure. Indication, risks, and benefits were explained at length. A time-out was completed verifying correct patient, procedure, site, positioning, and implants(s) or special equipment if applicable. Patients RIGHT Neck was cleansed and draped in the typical sterile fashion using Chloraprep. The Internal Jugular Vein and Carotid Artery were identified using ultrasound. The superficial tissue was anesthetized using 3.0 mL of 1% lidocaine without epinephrine under direct visualization with the ultrasound. After adequate anesthetization was achieved, the Internal Jugular vein was cannulated under direct ultrasound guidance using an introducer needle on a syringe. Good venous blood return was maintained prior to removal of syringe from introducer needle. Using Seldinger Technique, a guide wire was advanced through the introducer needle without resistance. The introducer needle was removed and ultrasound images were obtained of the guide wire within the Internal Jugular Vein and saved to the patients medical record. The dilator was advanced to the vessel without resistance. The dilator was exchanged for the triple lumen catheter which was advanced into the vessel without resistance. The guide wire was removed intact from the catheter without issue. Claves were placed on each catheter tip with confirmation of good blood flow from each lumen. Each port was easily flushed with sterile saline. The catheter was placed at 14 cm and sutured in place. BioPatch was applied to the catheter and a sterile Tegaderm dressing was applied over the catheter with careful attention to sterility. Patient tolerated procedure well. No immediate complications were met. Post procedure x-ray was completed, placement was appropriate and no pneumothorax was noted. Images obtained are saved for permanent record Procedural Ultrasound Guidance: Procedure Date: 06/02/2020 Indication: Pressors, multiple medications, poor peripheral access Attending: Dr. Hyatt APC: Fede Julien PA-C Artery AND Vein visualized: YES Compressible Vein: YES Guidewire or Short Catheter seen in vein prior to dilation: YES Line confirmed in Vein with ultrasound: YES Images obtained are saved for permanent record. Coding CPT Codes Tubes, Drains, and Vasc Access - Tubes, Drains, and Vasc Access: [id number] Place catheter in vein superior or inferior vena cava ([id number]) Tubes, Drains, and Vasc Access - Tubes, Drains, and Vasc Access: [id number] Ultrasound Guidance For Vascular ([id number]) [facility] [place] Procedure Codes (Charges) Tubes, Drains, and Vasc Access Procedure 1: Tubes, Drains, and Vasc Access: [id number] Place catheter in vein superior or inferior vena cava Procedure 2: Tubes, Drains, and Vasc Access: [id number] Ultrasound Guidance For Vascular
--- NOTE | 2020-06-02 20:09 | Pharmacy Report ---
Pharmacy Abx Initial Consult - Date of Service June 02, 2020 - Pharmacy Dosing Scope Date of Consult: 06/02/2020 Consultation requested by: Dr. Winkler Pharmacy is consulted to initiate Vancomycin IV dosing therapy, order appropriate labs and adjust drug dose/frequency. - Subjective The patient is a 74 year old F admitted on 06/02/20 15:58. - Objective Height: 5 ft 5 in Weight: 70 kg Vital Signs (Past 12hrs): Vital Signs Temp Pulse Pulse Resp BP BP Pulse Ox 06/02/20 19:15 86 28 H 100 06/02/20 19:04 90 26 H 85/63 L 98 06/02/20 18:49 103 H 22 78/45 L 98 06/02/20 18:34 96 H 30 H 68/47 L 96 06/02/20 18:20 37.6 C H 105 H 20 81/49 L 06/02/20 17:54 108 H 22 80/47 L 98 06/02/20 17:30 106 H 24 76/56 L 06/02/20 17:25 127 H 19 70/51 L 06/02/20 17:20 119 H 19 85/47 L 83 L 06/02/20 17:15 94 H 23 70/46 L 95 06/02/20 17:10 97 H 22 71/51 L 97 06/02/20 17:05 111 H 20 74/43 L 06/02/20 17:00 104 H 20 72/50 L 06/02/20 16:55 105 H 21 75/49 L 92 06/02/20 16:50 105 H 26 H 78/51 L 06/02/20 16:45 110 H 23 81/58 L 06/02/20 16:40 108 H 23 76/50 L 83 L 06/02/20 16:35 105 H 23 64/47 L 90 06/02/20 16:30 112 H 22 59/42 L 98 06/02/20 16:28 113 H 22 73/46 L 100 06/02/20 16:25 96 H 17 68/45 L 89 L 06/02/20 16:20 106 H 19 78/50 L 91 06/02/20 16:15 101 H 19 84/58 L 100 06/02/20 16:10 113 H 20 68/48 L 100 06/02/20 16:05 112 H 22 78/56 L 06/02/20 16:04 117 H 24 77/49 L 06/02/20 16:00 104 H 24 77/54 L 92 06/02/20 15:55 113 H 21 81/53 L 93 06/02/20 15:50 118 H 24 87/57 L 06/02/20 15:45 116 H 21 84/55 L 06/02/20 15:43 99 H 24 75/47 L 06/02/20 15:40 102 H 25 H 79/44 L 06/02/20 15:35 118 H 23 79/56 L 06/02/20 15:30 100 H 19 79/41 L 06/02/20 15:29 109 H 23 68/44 L 06/02/20 15:12 78/47 L 06/02/20 15:04 110 H 20 75/49 L 06/02/20 15:00 109 H 24 75/49 L 98 06/02/20 14:55 112 H 21 88/24 L 06/02/20 14:20 128 H 16 81/45 L 06/02/20 14:18 132 H 16 81/45 L 06/02/20 13:53 36.4 C L 130 H 20 71/44 L 95 Lab Results (24hrs): Laboratory Tests (24 Hours) 06/02/20 06/02/20 06/02/20 18:58 13:51 13:51 WBC Creatinine 2.73 H D 3.61 H Est Cr Clr Drug Dosing 17.2 13.0 Total Creatine Kinase 429 H Procalcitonin 18.83 H 06/02/20 13:51 WBC 5.28 Creatinine Est Cr Clr Drug Dosing Total Creatine Kinase Procalcitonin Micro Results: 06/02/20 16:42 Aerobic Blood Culture - Pending Blood Anaerobic Blood Culture - Pending 06/02/20 16:42 Aerobic Blood Culture - Pending Blood Anaerobic Blood Culture - Pending - Risk Factors for Resistance * None - Assessment & Plan Assessment 74 year old F admitted secondary to abdominal pain and diarrhea. * CT evidence of possible enteritis. Started on Vancomycin + Cefepime + Metronidazole. * No leukocytosis. Low-grade fever of 37.6oC. Significant JS, likely prerenal in nature secondary to hypovolemia. Baseline SCr ~1.1 mg/dL. Upon admission SCr was 3.61 mg/dL, down to 2.73 mg/dL after fluid resuscitation. * Procalcitonin significantly elevated at 18.83. Lactic acid was 2.1 but down to 0.8 after fluids. * Blood cultures pending at this time. Plan Vancomycin + Cefepime + Metronidazole for treatment of possible enteritis Vancomycin IV * Given JS, gave a one time loading dose of 1500 mg (~ 20 mg/kg) and will not order a maintenance dose at this time. * Plan to order a random level with AM labs. * Targeting a goal trough level of 15-20 mcg/mL. Cefepime (Pharmacy not consulted) * 2 g IV x 1 followed by 2 g IV every 24 hours for CrCl 11-29 mL/min * Appropriate per indication and renal function Metronidazole (Pharmacy not consulted) * 500 mg IV every 8 hours - appropriate Pharmacy will continue to follow and will adjust dose/frequency as necessary. Thank you.
--- NOTE | 2020-06-02 20:09 | XRay Report ---
XR chest 1V portable CLINICAL HISTORY: Central line confirmation COMPARISON STUDY: 06/02/2020 FINDINGS: The cardiac and mediastinal contours remain stable. There is no focal pulmonary consolidati on. There has been interval placement of right internal jugular central venous catheter. The tip proj ects over the expected location of the superior vena cava. There is no pneumothorax.[ IMPRESSION: No evidence of pneumothorax status post placement of a right internal jugular central michael ous catheter ACT 112: Negative or not required by law. Electronically signed by: Ghassan Worthy M.D. 06/02/2020 8:07 PM
[2020-06-02] MEDS ORDERED: NOREPINEPHRINE BIT INJ 8 MG in DEXTROSE 5% 500 ML IV SCH (20:15)
[2020-06-02] MEDS: AMIODARONE 360MG / 200ML D5W IV ONE ×2 (20:20→20:40)
[2020-06-02] MEDS: HYDROCORTISONE SOD 50 MG in SYRINGE 0 ML IV SCH (20:20)
[2020-06-02] MEDS: HYDROXYCHLOROQUINE SULFATE 200 MG TAB PO SCH (20:20)
[2020-06-02] MEDS: SODIUM CHLORIDE 0.9% 1000ML 1,000 ML IV SCH (20:20)
[2020-06-02] MEDS: PRAVASTATIN SOD 20 MG TAB PO SCH (20:21)
[2020-06-02] MEDS ORDERED: AMIODARONE / D5W 360 MG/200 ML BAG IV ONE (20:25)
[2020-06-02] MEDS ORDERED: 0.2 MICRON FILTER SET 1 EA IV ONE (20:25)
[2020-06-02 21:02] LABS: Appearance Urine Cloudy (Clear); Bacteria Urine Automated Negative (Negative); Bilirubin Urine Negative (Negative); Blood Urine Trace (Negative); Color Urine Dark Yellow; Epithelial Cell Urine Auto >30 /lpf (0-5); Glucose Urine UA Negative (Negative); Ketones Urine Negative (Negative); Leukocyte Esterase Urine Negative (Negative); Nitrite Urine Negative (Negative); Protein Urine 1+ (Negative); Specific Gravity Urine 1.015 (1.000-1.030); Urobilinogen Urine Negative (Negative)
[2020-06-02] MEDS: HEPARIN SOD 5,000 UNIT/0.5 ML VIAL SQ SCH (21:15)
--- NOTE | 2020-06-02 21:54 | Procedure Note ---
Procedure Note Date of Service June 02, 2020 Note ARTERIAL LINE PROCEDURE NOTE: Procedure: Right radial arterial Line Placement Indication: Monitoring on Pressors Anesthesia: None Consent was signed and placed on the chart prior to procedure. Indication, risks, and benefits were explained at length. A time-out was completed verifying correct patient, procedure, site, positioning, and implant(s) or special equipment if applicable. Patients right wrist was prepped and draped in the usual sterile fashion. Ultrasound guidance was used to aid needle placement. A 20g Arrow arterial line was introduced into the radial artery. Catheter was threaded, and the needle was removed with appropriate blood return. Good waveform was observed. The patient tolerated the procedure well. Blood Loss: Minimal Complications: None Coding CPT Codes Tubes, Drains, and Vasc Access - Tubes, Drains, and Vasc Access: [id number] Place Catheter In Artery ([id number]) Tubes, Drains, and Vasc Access - Tubes, Drains, and Vasc Access: [id number] Ultrasound Guidance For Vascular ([id number]) [facility] [place] Procedure Codes (Charges) Tubes, Drains, and Vasc Access Procedure 3: Tubes, Drains, and Vasc Access: [id number] Place Catheter In Artery Procedure 4: Tubes, Drains, and Vasc Access: [id number] Ultrasound Guidance For Vascular
--- NOTE | 2020-06-02 22:48 | Billing Data ---
Date of Service June 02, 2020 Coding Level of Care Code 75383 Initial Inpt Care Lvl 3
[2020-06-03] MEDS: PHENYLEPHRINE HCL 20 MG in DEXTROSE 5% 500 ML IV SCH ×5 (00:06→06:17)
[2020-06-03] MEDS: HYDROCORTISONE SOD 50 MG in SYRINGE 0 ML IV SCH ×4 (00:27→18:22)
[2020-06-03] MEDS ORDERED: Nursing to Pharmacy Communication SCH (01:15)
[2020-06-03] MEDS ORDERED: PHARMACY GLYCEMIC MGMT CONSULT PRN (01:17)
[2020-06-03] MEDS ORDERED: DEXTROSE 50% 50 ML SYRINGE IV PRN (01:30)
[2020-06-03] MEDS ORDERED: GLUCAGON FOR INJ 1 MG VIAL IM PRN (01:30)
[2020-06-03] MEDS ORDERED: INSULIN REGULAR 250 UNITS in SODIUM CHLORIDE 0.9% 247.5 ML IV SCH (01:30)
[2020-06-03] MEDS ORDERED: GLUCOSE 10 TABS/TUBE PO PRN (01:30)
[2020-06-03] MEDS ORDERED: CARBOHYDRATES FOR HYPOGLYCEMIA PO PRN (01:30)
[2020-06-03] MEDS ORDERED: NovoLIN-R BOLUS FROM BAG IV ONE (01:30)
[2020-06-03] MEDS ORDERED: GLUCOSE 40% GEL 15 GM TUBE PO PRN (01:30)
[2020-06-03] MEDS: AMIODARONE / D5W 360 MG/200 ML BAG IV SCH ×3 (02:44→21:09)
[2020-06-03] MEDS: metroNIDAZOLE 500 MG/100 ML BAG IV SCH ×3 (02:45→18:05)
[2020-06-03] MEDS: SODIUM CHLORIDE 0.9% 1000ML 1,000 ML IV SCH (03:57)
[2020-06-03] MEDS ORDERED: NORMOSOL-R 1,000 ML IV SCH (04:00)
[2020-06-03 05:10] LABS: Hematocrit (blood only) 29.5 % (37-47); Hemoglobin 10.3 g/dL (12.0-16.0); Mean Corpuscular Hemoglobin 28.4 pg (25-34); Mean Corpuscular Hgb Conc 34.9 g/dL (32-36); Mean Corpuscular Volume 81.3 fL (80-100); Mean Platelet Volume 10.2 fL (7.4-10.4); Platelet Count 288 K/uL (130-400); RDW Coefficient of Variation 15.3 % (11.5-14.5); Red Blood Count 3.63 M/uL (4.2-5.4); White Blood Count 4.23 K/uL (4.8-10.8)
[2020-06-03 05:39] LABS: BUN Creatinine Ratio 15.1 (10-20); Calcium 6.1 mg/dl (8.5-10.1); Creatinine Clr Calc Pharmacy 22.5 ml/min; Est GFR (African American) 24.2; Est GFR (Non-African American) 20.8; Magnesium 1.7 mg/dl (1.8-2.4); Potassium 3.2 mmol/L (3.5-5.1)
[2020-06-03 05:43] LABS: Echinocytes 1+; Eosinophils # (auto) 0.01 K/uL (0-0.5); Eosinophils % (auto) 0.2 %; Immature Granulocytes # (auto) 0.04 K/uL (0.00-0.02); Immature Granulocytes % (auto) 0.9 %; Lymphocytes # (auto) 0.97 K/uL (1.2-3.4); Lymphocytes % (auto) 22.9 %; Monocytes # (auto) 0.66 K/uL (0.11-0.59); Monocytes % (auto) 15.6 %; Neutrophils # (auto) 2.55 K/uL (1.4-6.5); Neutrophils % (auto) 60.4 %
[2020-06-03] MEDS ORDERED: CALCIUM GLUCONATE 10% 10 ML VIAL IV STA (05:48)
[2020-06-03] MEDS ORDERED: ALBUMIN 5% 250 ML IV STA (05:48)
[2020-06-03 05:51] LABS: Albumin Globulin Ratio 0.6 (0.9-2); Bilirubin,Total 0.3 mg/dl (0.2-1); Globulin 3.3 gm/dl (2.5-4.0); Total Protein 5.3 gm/dl (6.4-8.2)
[2020-06-03] MEDS ORDERED: MAGNESIUM SULFATE / D5W 1 GM/100 ML BAG IV ONE (05:51)
[2020-06-03] MEDS ORDERED: CALCIUM GLUCONATE 10% 2,000 MG in SODIUM CHLORIDE 0.9% 50 ML IV STA (06:00)
[2020-06-03] MEDS: POTASSIUM CHLORIDE / WTR 20 MEQ/100 ML PLCT IV SCH ×2 (06:17→07:53)
[2020-06-03] MEDS: HEPARIN SOD 5,000 UNIT/0.5 ML VIAL SQ SCH ×3 (06:18→20:19)
[2020-06-03] MEDS: LEVOTHYROXINE SODIUM 100 MCG TABLET PO SCH (06:18)
[2020-06-03] MEDS ORDERED: POTASSIUM PHOS 3 MMOL/1 ML INFUSION IV STA ×2 (06:19→14:56)
[2020-06-03] MEDS ORDERED: POTASSIUM PHOSPHATE 21 MMOL in SODIUM CHLORIDE 0.9% 500 ML IV ONE (06:45)
[2020-06-03] MEDS ORDERED: VANCOMYCIN HCL 1,000 MG in SODIUM CHLORIDE 0.9% 250 ML IV ONE (07:30)
[2020-06-03] MEDS ORDERED: INSULIN ASPART 100 UNITS/ML 3 ML PEN SC SCH ×2 (07:30→12:00)
--- NOTE | 2020-06-03 07:43 | Hospitalist Progress Note ---
Date of Service June 03, 2020 Assessment & Plan (1) Gastroenteritis: 74 yo F with PMH inflammatory polyarthritis on chronic prednisone and Plaquenil, HTN, HLD, breast cancer treated with tamoxifen who was admitted for gastroenteritis, severe diarrhea and acidosis, hypovolemic/ septic shock and new onset Afib. Ct abd/Pelv showed thickening of bowel wall with air fluid loops, no pneumoperitoneum or portal venous gas or intestinal pneumatosis, most likely enteritis. unsure if viral or bacterial at this time considered source of septic shock or etiology of dysentery to cause dehydration and hypovolemic shock blood cultures drawn, started on empiric Vanc, cefepime, metronidazole (p enicillin allergy) Stool studies ordered (Stool WBC, culture, ova+parasites) Cdiff negative today, covid negative 2 days ago with no new contacts (2) Hypovolemic shock: most likely secondary to dehydration/diarrhea, could be associated with sepsis on presentation received 1 dose of 50 mg hydrocortisone IV for BP support given chronic steroid use for arthritis. Continue 50 mg hydrocortisone Q6H now off vasopressors Appreciate surveillance supervisor consultation and management (3) JS (acute kidney injury): Creatinine up to 3.61 on admission, 1.5 after hydration With associated anion gap metabolic acidosis, hyponatremia CT abdomen/pelvis without evidence of obstruction in the system -Holding home losartan, hydrochlorothiazide, potassium (4) New onset a-fib: Started on heparin drip with bolus for anticoagulation TTE intact EF with mild MR cardiology consulted Intenisive care started Amiodarone (5) Diarrhea: Stool cultures are currently pending (6) Atrial fibrillation with RVR: rate controlled at present with amiodarone, anticoagulated with iv heparin (7) Acute hyponatremia: Resolved (8) Elevated troponin: myocardial demand ischemia in the setting of profound hypotension and rapid atrial fibrillation No ischemia on ECG and no chest pain Trend troponin 0.18->0.1-.0.08 Cardiogram without regional wall motion abnormalities (9) Inflammatory polyarthritis: normally on 5 mg pred daily IV steroids as above for stress dose steroids continue hydroxychloroquine per home regimen (10) Hypothyroidism: continue home levothyroxine (11) Hypertension: hold all home BP meds in setting of hypotension (12) Essential familial hypercholesterolemia: (13) Aortic stenosis: Echocardiogram does not support this diagnosis (14) Asthma: (15) DVT prophylaxis: Therapeutic heparin drip Admission and Anticipated Discharge Date Admission Date: June 02, 2020 Subjective pt was feeling much better, she is off pressors and blood pressure has been sta ble , still considering colitis as origin for sepsis, testing is pending Review of Systems Review of Systems: Mild distress and moderate fatigue no headache, blurry or double vision no speech or swallowing issues no chest pain, pressure or palpitations no shortness of breath, cough or wheezes persistent mild diffuse abdominal pain no dysuria, hematuria or frequency no focal joint pain or swelling no back pain, CVA tenderness or radicular pain no bruising, bleeding or rashes no focal signs of weakness or numbness or altered sensation no complaints or anxiety or depression. Physical Exam Physical Exam: The patient appeared awake and alert in mild distress from fatigue Vital signs as documented. Head exam is normocephalic atraumatic no scleral icterus Neck is without JVD, thyromegaly, or carotid bruits. Lungs are clear to auscultation, no focal loss of breath sounds Cardiac exam, Rhythm is regular.. No murmurs, rubs or gallops. Abdominal exam reveals hyperactive bowel sounds, soft non, mildly tender no rebound Extremities are nonedematous and both pedal pulses are present Neurologic exam is alert and oriented, no focal loss of strength or sensation Skin is without bruises or rashes Psychologically is without concerns for anxiety or depression. Results & Data Results & Data ([facility]) Vital Signs (Past 12 Hours) Vital Signs Temp Pulse Resp BP Pulse Ox 06/03/20 05:30 99.7 F H 76 19 100 06/03/20 05:15 99.7 F H 82 21 97 06/03/20 05:00 99.7 F H 78 20 98 06/03/20 04:54 99.7 F H 79 22 102/61 96 06/03/20 04:45 99.7 F H 72 21 98 06/03/20 04:36 99.5 F 78 20 90/49 L 94 06/03/20 04:30 99.5 F 78 20 95 06/03/20 04:15 99.3 F 73 20 97 06/03/20 04:00 99.3 F 80 21 98 06/03/20 03:45 99.3 F 71 24 99 06/03/20 03:30 99.3 F 74 23 95 09/23/20 03:15 99.1 F 78 20 96 20 03:00 99.1 F 74 23 95 20 02:54 99.1 F 74 21 108/62 95 20 02:45 99.1 F 83 24 91 06/03/20 02:30 99.1 F 72 21 94 06/03/20 02:15 99.1 F 80 21 93 20 02:00 99.1 F 74 23 92 20 01:54 99.1 F 76 20 104/65 95 20 01:45 99.1 F 78 20 94 06/03/20 01:30 99.1 F 79 20 94 20 01:15 99.1 F 82 21 93 06/03/20 01:00 99.0 F 82 22 94 20 00:54 99.0 F 77 21 110/67 94 20 00:45 99.0 F 78 21 94 06/03/20 00:15 99.1 F 76 24 92 06/03/20 00:00 99.0 F 78 19 94 06/02/20 23:54 99.0 F 73 18 114/57 L 94 06/02/20 23:45 99.0 F 75 20 93 09/20 23:30 99.0 F 74 19 94 09/20 23:15 99.0 F 73 19 93 06/02/20 23:06 75 09/20 23:00 99.0 F 79 19 94 09/20 22:45 99.1 F 82 19 94 06/02/20 22:30 99.1 F 73 19 96 09/20 22:15 72 22 09/20 22:00 99.0 F 85 18 09/22/20 21:55 99.3 F 75 19 110/45 L 100 09/22/20 21:45 99.3 F 82 16 100 09/22/20 21:30 99.1 F 87 18 100 09/22/20 21:15 99.3 F 73 19 100 09/22/20 21:00 99.1 F 73 18 100 09/22/20 20:55 99.1 F 71 18 89/58 L 95 22/20 20:49 99.1 F 77 18 109/69 100 09/22/20 20:45 99.1 F 86 16 100 06/02/20 20:34 99.1 F 73 21 94/57 L 100 06/02/20 20:30 83 17 96 06/02/20 20:19 76 18 92/60 L 96 06/02/20 20:15 82 18 100 06/02/20 20:13 76 17 93/51 L 100 06/02/20 20:05 87 20 69/56 L 100 06/02/20 20:00 82 19 100 06/02/20 19:50 83 21 89/55 L 06/02/20 19:45 69 28 H PG Care Time/CCT Total # of Minutes Spent Total Time Spent with Patient: Total time spent is greater than 50% in coordination of care (as documented) at patient's floor/unit and/or counseling patient: Coding Level of Care Code 00524 Subseq Hosp Care Lvl 3 Diagnoses Gastroenteritis K52.9 Hypovolemic shock R57.1 JS (acute kidney injury) N17.9 New onset a-fib I48.91 Diarrhea R19.7 Diarrhea type: unspecified type Atrial fibrillation with RVR I48.91 Acute hyponatremia E87.1 Elevated troponin R79.89 Inflammatory polyarthritis M06.4 Hypothyroidism E03.9 Hypertension I10 Essential familial hypercholesterolemia E78.01 Aortic stenosis I35.0 Asthma J45.909 DVT prophylaxis Z29.9 (1) Diarrhea Diarrhea type: unspecified type Qualified Code(s): R19.7 - Diarrhea, unspecified
[2020-06-03] MEDS: HYDROXYCHLOROQUINE SULFATE 200 MG TAB PO SCH (07:58)
--- NOTE | 2020-06-03 08:23 | Critical Care Progress Note ---
Date of Service June 03, 2020 Assessment & Plan (1) Hypovolemic shock: This patient was discussed with the bedside nurse. Assessment and Plan: -Hypovolemic versus septic shock from gastroenteritis, possible component of adrenal insufficiency -New onset atrial fibrillation likely related to shock -JS -Polyarthropathy on hydroxychloroquine and prednisone chronically Neurologic: No issues currently. Pulmonary: Patient saturating well on room air. Cardiovascular: New onset atrial fibrillation likely sepsis mediated. TSH within normal limits. Treat the underlying cause at this time. Heart rate improved. Echo report and cardiology consultation pending. She is currently on amiodarone drip. Unclear timeframe of atrial fibrillation. Defer anticoagulation management to cardiology. Currently weaning pressors. Troponin elevated likely related to demand ischemia. Gastrointestinal: Patient with evidence of gastroenteritis on CT abdomen. COVID-19 testing negative. C. difficile testing negative. Will check noravirus testing. Continue Flagyl and cefepime for possible GI source of infection. Lactate normalized. Lipase within normal limits. Alk phos mildly elevated. Albumin is 2. Renal: Hyponatremia is improving. Likely related to diarrhea. JS likely ischemic ATN. I stopped continuous IV fluids. Albumin bolus ordered. Acidosis is improving. Creatinine has improved significantly. Infectious disease: Antibiotics as noted above. Possible source is GI. Blood cultures pending. Urinalysis negative. Procalcitonin trending downwards. Hematologic: No significant issues currently. DVT prophylaxis with heparin 3 times daily.. Endocrine: Hydrocortisone 50 mg every 8 hours for possible adrenal insufficiency in the setting of chronic prednisone use. VTE prophylaxis: Heparin 3 times daily. CODE STATUS: Full code. Family at bedside: updated at bedside. Disposition: Remain in ICU. Right IJ in place. Right radial art line in place. Rodriguez catheter in place. Peripheral IVs in place. I have personally spent 38 minutes of critical care time in the direct management of this patient. This is a life/limb threatening event. This includes time spent evaluating patient, direct bedside care, chart review, placing orders, interpretation of diagnostic studies, discussion with consultants, patient, and family members, as well as other required patient management activities. This time is exclusive of all separately billable procedures, and teaching time and separate from and in addition to any other critical care service time. Thank you for allowing us to participate in the care of this patient. (2) New onset a-fib: (3) Gastroenteritis: (4) Acute hyponatremia: Admission and Anticipated Discharge Date Admission Date: June 02, 2020 Subjective Patient did not sleep much last night. She still has some mild abdominal complaints and pain, but this is improved. No fevers or chills. No nausea. Denies any chest pain. Able to wean off phenylephrine today. She is currently on 0.11 of Levophed. Urine output has been adequate overnight. Review of Systems Review of Systems: All systems reviewed & are unremarkable except as noted in HPI & below Physical Exam Constitutional: WD/WN, vitals as above + acute distress Eyes: PERRL, conjunctivae normal, anicteric sclerae ENMT: external ear and nose normal, oropharynx normal Neck: normal visual inspection Respiratory: normal respiratory effort, lungs clear to auscultation Cardiovascular: Rate/Rhythm: regular rate and + irregularly irregular Gastrointestinal (Abdomen): Inspection/Auscultation: abdomen normal to inspection and + abdomen distended Percussion/Palpation: + abdomen tender Musculoskeletal: no cyanosis or clubbing, extremities motor strength 5/5 Skin: no rashes, warm and dry Neurologic: PERRL, EOMI, accommodation nl, no face palsy, no dysarthria Psychiatric: A+Ox3, euthymic affect Results & Data Results & Data ([facility]) Vital Signs (Past 12 Hours) Vital Signs Temp Pulse Resp BP Pulse Ox 06/03/20 05:30 99.7 F H 76 19 100 06/03/20 05:15 99.7 F H 82 21 97 06/03/20 05:00 99.7 F H 78 20 98 06/03/20 04:54 99.7 F H 79 22 102/61 96 06/03/20 04:45 99.7 F H 72 21 98 06/03/20 04:36 99.5 F 78 20 90/49 L 94 06/03/20 04:30 99.5 F 78 20 95 06/03/20 04:15 99.3 F 73 20 97 06/03/20 04:00 99.3 F 80 21 98 06/03/20 03:45 99.3 F 71 24 99 06/03/20 03:30 99.3 F 74 23 95 06/03/20 03:15 99.1 F 78 20 96 06/03/20 03:00 99.1 F 74 23 95 06/03/20 02:54 99.1 F 74 21 108/62 95 06/03/20 02:45 99.1 F 83 24 91 06/03/20 02:30 99.1 F 72 21 94 06/03/20 02:15 99.1 F 80 21 93 06/03/20 02:00 99.1 F 74 23 92 06/03/20 01:54 99.1 F 76 20 104/65 95 06/03/20 01:45 99.1 F 78 20 94 06/03/20 01:30 99.1 F 79 20 94 06/03/20 01:15 99.1 F 82 21 93 06/03/20 01:00 99.0 F 82 22 94 06/03/20 00:54 99.0 F 77 21 110/67 94 06/03/20 00:45 99.0 F 78 21 94 06/03/20 00:15 99.1 F 76 24 92 06/03/20 00:00 99.0 F 78 19 94 06/02/20 23:54 99.0 F 73 18 114/57 L 94 06/02/20 23:45 99.0 F 75 20 93 06/02/20 23:30 99.0 F 74 19 94 06/02/20 23:15 99.0 F 73 19 93 06/02/20 23:06 75 06/02/20 23:00 99.0 F 79 19 94 06/02/20 22:45 99.1 F 82 19 94 06/02/20 22:30 99.1 F 73 19 96 06/02/20 22:15 72 22 06/02/20 22:00 99.0 F 85 18 06/02/20 21:55 99.3 F 75 19 110/45 L 100 20 21:45 99.3 F 82 16 100 20 21:30 99.1 F 87 18 100 20 21:15 99.3 F 73 19 100 20 21:00 99.1 F 73 18 100 20 20:55 99.1 F 71 18 89/58 L 95 20 20:49 99.1 F 77 18 109/69 100 06/02/20 20:45 99.1 F 86 16 100 20 20:34 99.1 F 73 21 94/57 L 100 06/02/20 20:30 83 17 96 06/02/20 20:19 76 18 92/60 L 96 Reviewed vital signs, labs and imaging Coding Level of Care Code Critical Care 1st 30-74 mins Diagnoses Hypovolemic shock R57.1 New onset a-fib I48.91 Gastroenteritis K52.9 Acute hyponatremia E87.1 Time Spent (min) 38
[2020-06-03] MEDS ORDERED: ALBUMIN 5% 250 ML IV SCH (08:30)
[2020-06-03] MEDS: ALBUMIN 5% 250 ML IV SCH ×2 (08:44→09:51)
--- NOTE | 2020-06-03 09:50 | Cardiology Consultation ---
Date of Consultation June 03, 2020 Assessment & Plan (1) New onset a-fib: She presented in atrial fibrillation, she was not aware of the rhythm but she was quite ill. The duration is not certain. It is interesting to note that her heart rate was generally well controlled historically through February 20, 2020, at that office visit her heart rate was 84, on May 21, 2020 her heart rate was 106, it was then 100 on May 29, 2020 and 118 on May 31, 2020 but electrocardiograms were not done at these times. She then presented on June 02, 2020 with a heart rate of 130 on her vital signs but quite ill. I suspect she may have developed atrial fibrillation sometime between February 19 and May 21 of this year and was unaware of it. This has implications in terms of long-term anticoagulation or at least long-term monitoring. (2) Elevated troponin: Her troponin was slightly elevated on presentation with no significant electrocardiographic changes, the troponin dropped over the subsequent 2 measurements consistent with demand ischemia. I would not pursue further evaluation. History of Present Illness Reason for Consultation: Atrial fibrillation Attending Physician: Chuy Belcher MD History of Present Illness This is a 74-year-old woman with a history of arthritis, breast cancer admitted with gastroenteritis and hypovolemia and hypotension as well as atrial fibrillation. She was anticoagulated with heparin and the rate initially was about 120 bpm on telemetry, that quickly dropped back to approximately normal and then about 8:50 AM today the rhythm converted to sinus rhythm with little change in heart rate. An electrocardiogram done on June 02, 2020 at 1356 shows atrial fibrillation with a heart rate of 128 bpm, no acute changes. Cardiac enzymes were slightly elevated on presentation at 0.183, the second measurement was 0.108 and the third 0.056. This is consistent with demand ischemia. At the time my evaluation she was feeling well. She describes development of weakness, diarrhea and feeling very poorly about 5 days ago, was evaluated as recently as 3 days ago and was not in atrial fibrillation at that time. She really was not aware of the arrhythmia, it is not clear whether she has had it before. She exercises regularly at the [facility] and has noted no difference in her exercise ability until this presentation. She has no exertional shortness of breath and no exertional chest discomfort. She does have a family history of heart disease including her father having bypass surgery in his 60s. Allergies Allergy/AdvReac Type Severity Reaction Status Date / Time Penicillins Allergy Mild RASH Verified 06/02/20 17:35 oxycodone Allergy Unknown severe Verified 06/02/20 17:35 nausea/vomiting clarithromycin [From Biaxin] Allergy Unknown Verified 06/02/20 17:35 codeine AdvReac Intermediate UPSET Verified 06/02/20 17:35 STOMACH, NO REACTIONS TO OTHER NARCOTICS Sulfa (Sulfonamide AdvReac Mild GI UPSET Verified 06/02/20 17:35 Antibiotics) adhesive AdvReac Unknown RASH AND Verified 06/02/20 17:35 REDNESS latex AdvReac Unknown Verified 06/02/20 17:35 Home Medications Home Medications Medication Instructions Recorded Confirmed Type cholecalciferol (vitamin D3) 2,000 unit PO QAM 04/16/19 06/02/20 History [Vitamin D3] clindamycin HCl 600 mg PO DAILY PRN 04/16/19 06/02/20 History coenzyme Q10 [CoQ-10] 100 mg PO QAM 04/16/19 06/02/20 History diphenhydramine-acetaminophen 1 tab PO HS PRN 04/16/19 06/02/20 History [Tylenol PM Extra Strength] fluticasone propion-salmeterol 1 inh INHALATION QAM PRN 04/16/19 06/02/20 History [Advair Diskus] hydroxychloroquine [Plaquenil] 200 mg PO QAM 04/16/19 06/02/20 History tramadol 50 mg PO Q6H PRN 04/16/19 06/02/20 History biotin 5,000 mcg disintegrating 5,000 mcg PO QAM tab 08/05/19 06/02/20 History tablet omeprazole 20 mg tablet,delayed 20 mg PO QAM #90 tab 09/23/19 06/02/20 Rx release verapamil 120 mg tablet,extended 120 mg PO QAM #90 tab 09/23/19 06/02/20 Rx release rizatriptan 10 mg disintegrating See Rx Instructions PO .COMPLEX 30 01/10/20 06/02/20 Rx tablet Days #9 tab prednisone 5 mg tablet 5 mg PO PRN tab 02/20/20 06/02/20 History cyclobenzaprine 5 mg tablet 5 mg PO BID PRN 30 Days #60 tab 02/26/20 06/02/20 Rx hydrocodone 5 mg-acetaminophen 325 0.5 tab PO UD PRN tab 05/21/20 06/02/20 History mg tablet famotidine 20 mg PO BID #20 tab 05/31/20 06/02/20 Rx hydrochlorothiazide 12.5 mg PO QAM 05/31/20 06/02/20 History levothyroxine 100 mcg PO QAM 05/31/20 06/02/20 History losartan 100 mg PO QAM 05/31/20 06/02/20 History ondansetron 4 mg PO Q6H PRN #14 tab 05/31/20 06/02/20 Rx potassium chloride [Klor-Con M20] 20 meq PO BID #10 tab 05/31/20 06/02/20 Rx pravastatin 20 mg PO HS 05/31/20 06/02/20 History Patient History Medical History Aortic stenosis Asthma Asthma Atrial fibrillation with RVR Breast cancer Cervical radiculopathy Cluster headache Degeneration of cervical intervertebral disc Essential familial hypercholesterolemia GERD (gastroesophageal reflux disease) HX: breast cancer 1999 - HAD RADIATION AND TAMOXIFEN Hyperlipidemia Hypertension Hyperthyroidism Hypothyroid Hypovolemic shock Inflammatory polyarthritis Malignant melanoma of skin Migraine Osteoarthritis Osteopenia Positional vertigo SNHL (sensorineural hearing loss) Surgical History History of colonoscopy History of knee replacement procedure of right knee History of lumpectomy of left breast Hx of hernia repair Hx of right cataract extraction Family History Mother No pertinent family history Social History Smoking Status: Never smoker Second Hand Exposure: No; Hx Alcohol Use: No Hx Substance Use: Yes Substance Use Type Other:: CBD OIL Preferred Language: Irish Communication Ability: Effective Guest Services Attendant Required: No Beliefs That Will Affect Care: None marital status: Current Living Situation: Spouse Feels Safe at Home: Yes Assistive Devices: Glasses Review of Systems Review of Systems: All systems reviewed & are unremarkable except as noted in HPI & below Physical Exam Physical Exam: Constitutional: Alert, cooperative and in no distress. HEENT: Unremarkable Neck: No jugular venous distention, carotid pulses are normal and equal bilate rally without bruits. Pulmonary: Clear to auscultation bilaterally. Cardiac: Regular rhythm with no murmur, gallop or rub. Abdomen: Soft, nontender with normal bowel sounds. Extremities: No edema. Distal pulses intact. Neurologic: No focal findings. Gait is steady. Skin: No rash, ecchymoses or petechiae. Results & Data ([facility]) Vital Signs (Past 12 Hours) Vital Signs Temp Pulse Pulse Resp BP BP Pulse Ox 06/03/20 08:00 76 101/68 06/03/20 07:00 37.0 C 92 H 20 110/66 98 06/03/20 05:30 37.6 C H 76 19 100 06/03/20 05:15 37.6 C H 82 21 97 06/03/20 05:00 37.6 C H 78 20 98 06/03/20 04:54 37.6 C H 79 22 102/61 96 06/03/20 04:45 37.6 C H 72 21 98 06/03/20 04:36 37.5 C 78 20 90/49 L 94 06/03/20 04:30 37.5 C 78 20 95 06/03/20 04:15 37.4 C 73 20 97 06/03/20 04:00 37.4 C 80 21 98 06/03/20 03:45 37.4 C 71 24 99 06/03/20 03:30 37.4 C 74 23 95 06/03/20 03:15 37.3 C 78 20 96 06/03/20 03:00 37.3 C 74 23 95 06/03/20 02:54 37.3 C 74 21 108/62 95 06/03/20 02:45 37.3 C 83 24 91 06/03/20 02:30 37.3 C 72 21 94 06/03/20 02:15 37.3 C 80 21 93 06/03/20 02:00 37.3 C 74 23 92 06/03/20 01:54 37.3 C 76 20 104/65 95 06/03/20 01:45 37.3 C 78 20 94 06/03/20 01:30 37.3 C 79 20 94 06/03/20 01:15 37.3 C 82 21 93 06/03/20 01:00 37.2 C 82 22 94 06/03/20 00:54 37.2 C 77 21 110/67 94 06/03/20 00:45 37.2 C 78 21 94 06/03/20 00:15 37.3 C 76 24 92 06/03/20 00:00 37.2 C 78 19 94 06/02/20 23:54 37.2 C 73 18 114/57 L 94 06/02/20 23:45 37.2 C 75 20 93 06/02/20 23:30 37.2 C 74 19 94 06/02/20 23:15 37.2 C 73 19 93 06/02/20 23:06 75 06/02/20 23:00 37.2 C 79 19 94 06/02/20 22:45 37.3 C 82 19 94 06/02/20 22:30 37.3 C 73 19 96 06/02/20 22:15 72 22 06/02/20 22:00 37.2 C 85 18 06/02/20 21:55 37.4 C 75 19 110/45 L 100 Diagnostic Findings Telemetry: Atrial fibrillation till about 9 AM today with conversion to sinus rhythm, both at a controlled heart rate PG Care Time/CCT Total # of Minutes Spent Total Time Spent with Patient: Total time spent is greater than 50% in coordination of care (as documented) at patient's floor/unit and/or counseling patient: Coding Level of Care Code 58687 Initial Inpt Care Lvl 3 Diagnoses New onset a-fib I48.91 Elevated troponin R79.89
[2020-06-03] MEDS ORDERED: FAMOTIDINE 20 MG in SYRINGE 3 ML IV SCH (11:00)
[2020-06-03] MEDS: INSULIN ASPART 100 UNITS/ML 3 ML PEN SC SCH ×3 (11:42→20:19)
--- NOTE | 2020-06-03 11:52 | XCELERA ---
[id number]
--- NOTE | 2020-06-03 11:58 | Pharmacy Report ---
Glycemic Control Consultation - Date of Service June 03, 2020 - Scope Scope: Glycemic Pharmacist consulted for glycemic control and to write orders per [facility] inpatient glycemic control protocol. - Objective Weight: 79.7 kg Accuchecks BSG (last 24hrs): 06/02/20 06/02/20 06/03/20 13:51 18:58 00:35 Glucose 115 H 129 H POC Glucose POC Glucose (other) 247 H 06/03/20 06/03/20 06/03/20 02:44 03:36 04:41 Glucose POC Glucose POC Glucose (other) 210 H 178 H 147 H 06/03/20 06/03/20 06/03/20 04:48 05:39 06:29 Glucose 141 H POC Glucose POC Glucose (other) 135 H 121 H 06/03/20 06/03/20 06/03/20 07:32 08:25 10:26 Glucose POC Glucose 110 H POC Glucose (other) 112 H 103 H 06/03/20 11:25 Glucose POC Glucose POC Glucose (other) 95 Laboratory Data (last 24hrs): 06/02/20 06/02/20 06/03/20 13:51 18:58 04:48 Potassium 4.4 4.3 3.2 L D Carbon Dioxide 16 L 12 L 13 L Anion Gap 16.0 H 13.0 H 11.0 Creatinine 3.61 H 2.73 H D 2.22 H D Est Cr Clr Drug Dosing 13.0 17.2 22.5 - Recent Pertinent Medications Outpatient Anti-diabetic Regimen: * None * A1c outdated but was 6.3% on 01/29/20. Repeat ordered for tomorrow The patient is currently receiving: * Insulin drip @ 1.7 units/hr Risk Factors for Insulin Resistance: * Steroids: Hydrocortisone 50 mg IV q6h * Infection: possible septic shock, ?GI source * Pressors: norepinephrine (now titrated down to 0 mcg/kg/min), phenylephrine (discontinued this AM) * IVF: multiple drips mixed in D5W including amiodarone, heparin, norepinephrine and phenylephrine * Diet: clear liquid starting this afternoon - Assessment & Plan Assessment & Plan: ASSESSMENT: * 74 yo F with slightly outdated HbA1c indicative of pre-diabetes on no diabetes medications at home admitted 06/02 for hypovolemic +/- septic shock, new-onset Afib, JS. Required significant pressor support, stress-dose hydrocortisone for possible adrenal insufficiency, and multiple IVF mixed in dextose which contributed to stress-induced hyperglycemia. Insulin drip was appropriately initiated. This morning, BSG's have trended down nicely and clinical status has significantly improved. BSG's now below goal range, most recently 95 mg/dL with insulin drip running at a relatively low rate * Discussed w Dr. Hyatt - OK to discontinue insulin drip without Lantus overlap for now as patient is not diabetic, BSG's have improved significantly, and stressors are decreasing. Patient may therefore require no Lantus to keep BSG's less than 180 mg/dL. However, if BSG's increase, will add on Lantus at that time * Novolog initated at slightly tighter than weight-based moderate stress estimate given persistence of significant stressors, most notably hydrocortisone 50 mg IV q6h PLAN FOR INPATIENT GLYCEMIC CONTROL: * Discontinue insulin infusion - no overlap with basal required at this time * Basal insulin * Lantus 10 or 20 units SQ with dinner, but only if BSG >140 or >180 mg/dL, respectively * Bolus insulin * NovoLog per scale ACHS owith one overnight check * Goal Range: Low 110 mg/dL - High 140 mg/dL * Correction Factor: 25 mg/dL/unit * Nutritional / Prandial insulin per carb ratio of 1 unit per 9 grams CHO consumed * Please note that the plan above was derived based on current level of insulin resistance and hospital stress. These recommendations are appropriate for inpatient admission only. Plan of care upon discharge will need to be reassessed to avoid potential outpatient hypo/hyperglycemia. Thank you.
--- NOTE | 2020-06-03 14:19 | Electrocardiogram Report ---
Test Reason : Blood Pressure : / mmHG Vent. Rate : 128 BPM Atrial Rate : 122 BPM P-R Int : 000 ms QRS Dur : 098 ms QT Int : 288 ms P-R-T Axes : 000 -24 076 degrees QTc Int : 420 ms Atrial fibrillation with rapid ventricular response Abnormal ECG When compared with ECG of 26-JUL-2016 12:41, Atrial fibrillation has replaced Sinus rhythm Vent. rate has increased BY 54 BPM Confirmed by Pb Kuhn ([id number]) on 06/03/2020 2:18:52 PM Referred By: REFERRED SELF Confirmed By:Pb Kuhn
[2020-06-03 14:27] LABS: BUN Creatinine Ratio 14.8 (10-20); Calcium 6.6 mg/dl (8.5-10.1); Creatinine Clr Calc Pharmacy 31.8 ml/min; Est GFR (African American) 36.7; Est GFR (Non-African American) 31.7; Potassium 3.4 mmol/L (3.5-5.1)
[2020-06-03 14:30] LABS: Phosphorus 1.8 mg/dl (2.5-4.9)
[2020-06-03] MEDS ORDERED: CALCIUM GLUCONATE 10% 1,000 MG in SODIUM CHLORIDE 0.9% 50 ML IV ONE (15:15)
[2020-06-03] MEDS ORDERED: POTASSIUM PHOSPHATE 30 MMOL in SODIUM CHLORIDE 0.9% 500 ML IV ONE (15:15)
[2020-06-03] MEDS ORDERED: INSULIN GLARGINE SOLOSTAR 100 UNITS/ML 3 ML PEN SC ONE (16:30)
[2020-06-03] MEDS ORDERED: CEFEPIME 2,000 MG in SYRINGE 0 ML IV SCH (18:00)
[2020-06-03] MEDS: PRAVASTATIN SOD 20 MG TAB PO SCH (20:19)
[2020-06-03] MEDS: QUETIAPINE FUMARATE 25 MG TABLET PO SCH (20:19)
[2020-06-04] MEDS: HYDROCORTISONE SOD 50 MG in SYRINGE 0 ML IV SCH ×2 (00:45→06:08)
[2020-06-04] MEDS ORDERED: INSULIN ASPART 100 UNITS/ML 3 ML PEN SC SCH (02:00)
[2020-06-04] MEDS: metroNIDAZOLE 500 MG/100 ML BAG IV SCH (03:42)
[2020-06-04 04:54] LABS: Hematocrit (blood only) 25.1 % (37-47); Hemoglobin 8.6 g/dL (12.0-16.0); Mean Corpuscular Hemoglobin 27.7 pg (25-34); Mean Corpuscular Hgb Conc 34.3 g/dL (32-36); Mean Platelet Volume 10.1 fL (7.4-10.4); Platelet Count 278 K/uL (130-400); RDW Coefficient of Variation 15.6 % (11.5-14.5); White Blood Count 3.23 K/uL (4.8-10.8)
[2020-06-04 05:17] LABS: Dohle Bodies 1+; Echinocytes 2+; Eosinophils # (auto) 0.01 K/uL (0-0.5); Eosinophils % (auto) 0.3 %; Immature Granulocytes # (auto) 0.04 K/uL (0.00-0.02); Immature Granulocytes % (auto) 1.2 %; Lymphocytes # (auto) 0.83 K/uL (1.2-3.4); Lymphocytes % (auto) 25.7 %; Monocytes # (auto) 0.68 K/uL (0.11-0.59); Monocytes % (auto) 21.1 %; Neutrophils # (auto) 1.67 K/uL (1.4-6.5); Neutrophils % (auto) 51.7 %; Toxic Vacuolation 1+
[2020-06-04 05:23] LABS: BUN Creatinine Ratio 15.7 (10-20); Calcium 6.5 mg/dl (8.5-10.1); Creatinine Clr Calc Pharmacy 39.9 ml/min; Est GFR (African American) 48.4; Est GFR (Non-African American) 41.8; Potassium 3.2 mmol/L (3.5-5.1)
[2020-06-04 05:24] LABS: Phosphorus 2.3 mg/dl (2.5-4.9)
[2020-06-04 06:07] LABS: Estimated Average Glucose 143 mg/dl; Hemoglobin A1C 6.6 % (4.5-5.6)
[2020-06-04] MEDS: HEPARIN SOD 5,000 UNIT/0.5 ML VIAL SQ SCH ×3 (06:08→21:18)
[2020-06-04] MEDS: LEVOTHYROXINE SODIUM 100 MCG TABLET PO SCH (06:08)
[2020-06-04] MEDS ORDERED: POTASSIUM PHOS 3 MMOL/1 ML INFUSION IV STA (06:16)
[2020-06-04] MEDS ORDERED: CALCIUM GLUCONATE 10% 2,000 MG in SODIUM CHLORIDE 0.9% 50 ML IV SCH (07:00)
[2020-06-04] MEDS: POTASSIUM CHLORIDE / WTR 20 MEQ/100 ML PLCT IV SCH ×4 (07:16→13:09)
[2020-06-04] MEDS ORDERED: POTASSIUM PHOSPHATE 21 MMOL in SODIUM CHLORIDE 0.9% 500 ML IV ONE (07:30)
--- NOTE | 2020-06-04 08:13 | Hospitalist Progress Note ---
Date of Service June 04, 2020 Assessment & Plan (1) Gastroenteritis: 74 yo F with PMH inflammatory polyarthritis on chronic prednisone and Plaquenil, HTN, HLD, breast cancer treated with tamoxifen who was admitted for gastroenteritis, severe diarrhea and acidosis, hypovolemic/ septic shock and new onset Afib. Ct abd/Pelv showed thickening of bowel wall with air fluid loops, no pneumoperitoneum or portal venous gas or intestinal pneumatosis, most likely enteritis. unsure if viral or bacterial at this time considered source of septic shock or etiology of dysentery to cause dehydration and hypovolemic shock blood cultures drawn, started on empiric Vanc, cefepime, metronidazole (p enicillin allergy). vancomycin stopped 06/04 Stool studies ordered (Stool WBC, culture, ova+parasites) Cdiff negative, covid negative 2 days ago with no new contacts (2) Hypovolemic shock: most likely secondary to dehydration/diarrhea, could be associated with sepsis on presentation received 1 dose of 50 mg hydrocortisone IV for BP support given chronic steroid use for arthritis. will resume daily po prednisone 06/05 now off vasopressors (3) JS (acute kidney injury): Resolved, Creatinine up to 3.61 on admission, 1.5 after hydration With associated anion gap metabolic acidosis, hyponatremia CT abdomen/pelvis without evidence of obstruction in the system -low blood pressure persists continue Holding home losartan, hydrochlorothiazide, potassium (4) New onset a-fib: Started on heparin drip with bolus for anticoagulation TTE intact EF with mild MR cardiology consulted Intensive care started Amiodarone transitioned to po amiodarone 06/04 now in NSR (5) Diarrhea: Stool cultures are currently pending (6) Atrial fibrillation with RVR: rate controlled at present with amiodarone (7) Acute hyponatremia: Resolved (8) Elevated troponin: myocardial demand ischemia in the setting of profound hypotension and rapid atrial fibrillation No ischemia on ECG and no chest pain Trend troponin 0.18->0.1-.0.08 EchoCardiogram without regional wall motion abnormalities (9) Inflammatory polyarthritis: normally on 5 mg pred daily continue hydroxychloroquine per home regimen (10) Hypothyroidism: continue home levothyroxine (11) Hypertension: hold all home BP meds in setting of hypotension (12) Essential familial hypercholesterolemia: (13) Aortic stenosis: Echocardiogram does not support this diagnosis (14) Asthma: (15) DVT prophylaxis: Therapeutic heparin drip Admission and Anticipated Discharge Date Admission Date: June 02, 2020 Subjective continues to improve and now able to tolerate po intake still no defined source for infection but improving on antibiotics Review of Systems Review of Systems: Mild distress and moderate fatigue no headache, blurry or double vision no speech or swallowing issues no chest pain, pressure or palpitations no shortness of breath, cough or wheezes persistent mild diffuse abdominal pain, but less than 9/23 and improved appetite no dysuria, hematuria or frequency no focal joint pain or swelling no back pain, CVA tenderness or radicular pain no bruising, bleeding or rashes no focal signs of weakness or numbness or altered sensation no complaints or anxiety or depression. Physical Exam Physical Exam: The patient appeared awake and alert Vital signs as documented. Head exam is normocephalic atraumatic no scleral icterus Neck is without JVD, thyromegaly, or carotid bruits. Lungs are clear to auscultation, no focal loss of breath sounds Cardiac exam, Rhythm is regular.. No murmurs, rubs or gallops. Abdominal exam reveals hyperactive bowel sounds, soft non, mildly tender no rebound Extremities are nonedematous and both pedal pulses are present Neurologic exam is alert and oriented, no focal loss of strength or sensation Skin is without bruises or rashes Psychologically is without concerns for anxiety or depression. Results & Data Results & Data ([facility]) Vital Signs (Past 12 Hours) Vital Signs Temp Pulse Resp BP Pulse Ox 06/04/20 08:00 71 93/71 L 06/04/20 06:00 98.4 F 71 28 H 98 06/04/20 05:33 98.2 F 68 15 104/64 100 06/04/20 05:00 98.2 F 74 21 100 06/04/20 04:33 98.2 F 73 18 108/66 100 06/04/20 04:00 98.1 F 73 20 100/51 L 100 06/04/20 03:50 98.1 F 78 21 94 06/04/20 03:40 98.1 F 74 20 99 06/04/20 03:33 98.1 F 76 21 110/70 100 06/04/20 03:30 98.1 F 72 19 100 06/04/20 03:20 98.1 F 75 23 100 06/04/20 03:10 98.1 F 75 22 99 06/04/20 03:00 98.1 F 77 23 100 06/04/20 02:34 98.2 F 77 22 102/64 100 06/04/20 02:00 98.2 F 72 18 98 06/04/20 01:33 98.4 F 77 21 100/60 100 06/04/20 01:00 98.4 F 77 20 98 06/04/20 00:33 98.4 F 74 16 91/57 L 100 06/04/20 00:00 98.6 F 79 18 91/56 L 98 06/03/20 23:33 98.8 F 79 18 87/48 L 97 06/03/20 23:00 99.1 F 79 16 98 06/03/20 22:33 99.3 F 80 18 85/48 L 98 06/03/20 22:00 99.1 F 84 19 96 06/03/20 21:33 99.1 F 84 25 H 90/72 L 100 06/03/20 21:00 99.1 F 82 24 99 06/03/20 20:33 99.3 F 85 26 H 111/73 99 PG Care Time/CCT Total # of Minutes Spent Total Time Spent with Patient: Total time spent is greater than 50% in coordination of care (as documented) at patient's floor/unit and/or counseling patient: Coding Level of Care Code 88383 Subseq Hosp Care Lvl 3 Diagnoses Gastroenteritis K52.9 Hypovolemic shock R57.1 JS (acute kidney injury) N17.9 New onset a-fib I48.91 Diarrhea R19.7 Diarrhea type: unspecified type Atrial fibrillation with RVR I48.91 Acute hyponatremia E87.1 Elevated troponin R79.89 Inflammatory polyarthritis M06.4 Hypothyroidism E03.9 Hypertension I10 Essential familial hypercholesterolemia E78.01 Aortic stenosis I35.0 Asthma J45.909 DVT prophylaxis Z29.9 (1) Diarrhea Diarrhea type: unspecified type Qualified Code(s): R19.7 - Diarrhea, unspecified
--- NOTE | 2020-06-04 08:13 | Critical Care Progress Note ---
Date of Service June 04, 2020 Assessment & Plan (1) Hypovolemic shock: This patient was discussed with the bedside nurse. Assessment and Plan: -Hypovolemic versus septic shock from gastroenteritis, possible component of adrenal insufficiency -New onset atrial fibrillation likely related to shock -JS -Polyarthropathy on hydroxychloroquine and prednisone chronically -Abnormal electrolytes Neurologic: No issues currently. Pulmonary: Patient saturating well on room air. Cardiovascular: Patient with new onset atrial fibrillation. Switching her IV amiodarone to p.o. amiodarone. Patient is currently in normal sinus rhythm. Will defer anticoagulation to the cardiology team and the hospitalist. Echo report with evidence of left ventricular systolic function that this normal. Mild concentric left ventricular hypertrophy. RVSP normal. Gastrointestinal: Patient with evidence of gastroenteritis on CT abdomen. COVID-19 testing negative. C. difficile testing negative. I am not sure whether the norovirus testing was sent.. Continue Flagyl and cefepime for possible GI source of infection. Lactate normalized. Lipase within normal limits. Renal: Her renal function is improving nicely. She does have a non-anion gap acidosis from hyperchloremic crystalloids. This should improve with time. We are replacing electrolytes aggressively. Infectious disease: Antibiotics as noted above. Possible source is GI. Blood cultures negative to date. Urinalysis negative. Procalcitonin trending downwards. Recommend treating with 2 weeks of IV antibiotics given the degree of septic shock. Can likely de-escalate to p.o. Flagyl and IV Rocephin while in the hospital. Hematologic: No significant issues currently. DVT prophylaxis with heparin 3 times daily. Endocrine: I am weaning her hydrocortisone to 50 mg every 8 hours for possible relative adrenal insufficiency. This can be weaned to twice daily tomorrow and so forth. VTE prophylaxis: Heparin 3 times daily. CODE STATUS: Full code. I requested that her right IJ and right radial artery line be removed today. Disposition: Patient can be transferred to the floor. (2) New onset a-fib: (3) Gastroenteritis: (4) Acute hyponatremia: Admission and Anticipated Discharge Date Admission Date: June 02, 2020 Subjective Patient feeling much better today. Belly is less painful with less cramping. Tolerating her liquid diet. Denies any chest pain. No fevers overnight. Sitting up in a chair currently. Slept well after administration of Benadryl last night. Review of Systems Review of Systems: All systems reviewed & are unremarkable except as noted in HPI & below Physical Exam 2 Constitutional: WD/WN, vitals as above Eyes: PERRL, conjunctivae normal, anicteric sclerae ENMT: external ear and nose normal, oropharynx normal Neck: normal visual inspection Respiratory: normal respiratory effort, lungs clear to auscultation Cardiovascular: RRR, no murmur, no edema Rate/Rhythm: regular rate; not irregularly irregular Gastrointestinal (Abdomen): Inspection/Auscultation: abdomen normal to inspection and + abdomen distended Percussion/Palpation: + abdomen tender Musculoskeletal: no cyanosis or clubbing, extremities motor strength 5/5 Skin: no rashes, warm and dry Neurologic: PERRL, EOMI, accommodation nl, no face palsy, no dysarthria Psychiatric: A+Ox3, euthymic affect Results & Data Results & Data ([facility]) Vital Signs (Past 12 Hours) Vital Signs Temp Pulse Resp BP Pulse Ox 06/04/20 08:00 71 93/71 L 06/04/20 06:00 98.4 F 71 28 H 98 06/04/20 05:33 98.2 F 68 15 104/64 100 06/04/20 05:00 98.2 F 74 21 100 06/04/20 04:33 98.2 F 73 18 108/66 100 06/04/20 04:00 98.1 F 73 20 100/51 L 100 06/04/20 03:50 98.1 F 78 21 94 06/04/20 03:40 98.1 F 74 20 99 06/04/20 03:33 98.1 F 76 21 110/70 100 06/04/20 03:30 98.1 F 72 19 100 06/04/20 03:20 98.1 F 75 23 100 06/04/20 03:10 98.1 F 75 22 99 06/04/20 03:00 98.1 F 77 23 100 06/04/20 02:34 98.2 F 77 22 102/64 100 06/04/20 02:00 98.2 F 72 18 98 06/04/20 01:33 98.4 F 77 21 100/60 100 06/04/20 01:00 98.4 F 77 20 98 06/04/20 00:33 98.4 F 74 16 91/57 L 100 06/04/20 00:00 98.6 F 79 18 91/56 L 98 06/03/20 23:33 98.8 F 79 18 87/48 L 97 06/03/20 23:00 99.1 F 79 16 98 06/03/20 22:33 99.3 F 80 18 85/48 L 98 06/03/20 22:00 99.1 F 84 19 96 06/03/20 21:33 99.1 F 84 25 H 90/72 L 100 06/03/20 21:00 99.1 F 82 24 99 06/03/20 20:33 99.3 F 85 26 H 111/73 99 I reviewed vital signs, labs and imaging Coding Level of Care Code 78476 Subseq Hosp Care Lvl 3 Diagnoses Hypovolemic shock R57.1 New onset a-fib I48.91 Gastroenteritis K52.9 Acute hyponatremia E87.1
[2020-06-04] MEDS: INSULIN ASPART 100 UNITS/ML 3 ML PEN SC SCH ×4 (08:14→21:19)
[2020-06-04] MEDS: metroNIDAZOLE 500 MG TAB PO SCH ×3 (09:09→21:18)
[2020-06-04] MEDS: cefTRIAXone SODIUM 1,000 MG in DEXTROSE 5% 50 ML IV SCH (09:09)
--- NOTE | 2020-06-04 11:34 | Cardiology Progress Note ---
Date of Service June 04, 2020 Assessment & Plan (1) New onset a-fib: She presented in atrial fibrillation, she was not aware of the rhythm but she was quite ill at the time so she may not have been aware of it for that reason. The duration is not certain. It is interesting to note that her heart rate was generally well controlled historically through February 20, 2020, at that office visit her heart rate was 84, on May 21, 2020 her heart rate was 106, it was then 100 on May 29, 2020 and 118 on May 31, 2020 but electrocardiograms were not done at these times. She then presented on June 02, 2020 with a heart rate of 130 on her vital signs but quite ill. I suspect she may have developed atrial fibrillation sometime between February 19 and May 21 of this year and was unaware of it, although I cannot prove that since we do not have electrocardiograms. This has implications in terms of long-term anticoagulation or at least long-term monitoring. I would keep her on telemetry while she is in the hospital in case she has a symptomatic recurrence which so far she has not. (2) Elevated troponin: Her troponin was slightly elevated on presentation with no significant electrocardiographic changes, the troponin dropped over the subsequent 2 measurements consistent with demand ischemia. I would not pursue further evaluation. Admission and Anticipated Discharge Date Admission Date: June 02, 2020 Subjective She feels much better today, essentially back to normal. No palpitations or chest discomfort. Physical Exam Physical Exam: Constitutional: Alert, cooperative and in no distress. HEENT: Unremarkable Neck: No jugular venous distention, carotid pulses are normal and equal bilaterally without bruits. Pulmonary: Clear to auscultation bilaterally. Cardiac: Regular rhythm with no murmur, gallop or rub. Abdomen: Soft, nontender with normal bowel sounds. Extremities: No edema. Distal pulses intact. Neurologic: No focal findings. Gait is steady. Skin: No rash, ecchymoses or petechiae. Results & Data ([facility]) Vital Signs (Past 12 Hours) Vital Signs Temp Pulse Resp BP Pulse Ox 06/04/20 11:15 36.8 C 78 22 120/71 97 06/04/20 08:00 71 93/71 L 06/04/20 07:57 36.8 C 82 24 122/67 06/04/20 07:00 36.8 C 73 17 100 06/04/20 06:00 36.9 C 71 28 H 98 06/04/20 05:33 36.8 C 68 15 104/64 100 06/04/20 05:00 36.8 C 74 21 100 06/04/20 04:33 36.8 C 73 18 108/66 100 06/04/20 04:00 36.7 C 73 20 100/51 L 100 06/04/20 03:50 36.7 C 78 21 94 06/04/20 03:40 36.7 C 74 20 99 06/04/20 03:33 36.7 C 76 21 110/70 100 06/04/20 03:30 36.7 C 72 19 100 06/04/20 03:20 36.7 C 75 23 100 06/04/20 03:10 36.7 C 75 22 99 06/04/20 03:00 36.7 C 77 23 100 06/04/20 02:34 36.8 C 77 22 102/64 100 06/04/20 02:00 36.8 C 72 18 98 06/04/20 01:33 36.9 C 77 21 100/60 100 06/04/20 01:00 36.9 C 77 20 98 06/04/20 00:33 36.9 C 74 16 91/57 L 100 06/04/20 00:00 37.0 C 79 18 91/56 L 98 Laboratory Results CBC 06/04/20 Range/Units 04:38 WBC 3.23 L (4.8-10.8) K/uL RBC 3.10 L (4.2-5.4) M/uL Hgb 8.6 L (12.0-16.0) g/dL Hct 25.1 L (37-47) % Plt Count 278 (130-400) K/uL Neut # (Auto) 1.67 (1.4-6.5) K/uL Lymph # (Auto) 0.83 L (1.2-3.4) K/uL [place] # (Auto) 0.68 H (0.11-0.59) K/uL Eos # (Auto) 0.01 (0-0.5) K/uL Baso # (Auto) 0.00 (0-0.2) K/uL Comprehensive Metabolic Panel 06/03/20 06/04/20 Range/Units 14:03 04:38 Sodium 140 144 (136-145) mmol/L Potassium 3.4 L 3.2 L (3.5-5.1) mmol/L Chloride 116 H 119 H (98-107) mmol/L Carbon Dioxide 13 L 17 L (21-32) mmol/L BUN 23 H 20 H (7-18) mg/dl Creatinine 1.57 H D 1.25 H D (0.6-1.2) mg/dl Glucose 119 H 113 H (70-99) mg/dl Calcium 6.6 L 6.5 L (8.5-10.1) mg/dl Intake and Output 06/03/20 06/04/20 06/04/20 22:59 06:59 14:59 Intake Total 1191.752 / 4002.809 180 / 4002.809 720.650 / 720.650 Output Total 1350 / 4500 1050 / 4500 301 / 301 Balance -158.248 / -497.191 -870 / -497.191 419.650 / 419.650 Intake: IV 851.752 / 3082.809 100 / 3082.809 500.650 / 500.650 NEXTERONE / D5W 360 mg In 200 181.752 / 307.558 186.483 / 186.483 ml @ 0.5 MG/MIN 16.667 mls/hr IV .Q12H LUCIANO Rx#:[id number] Calcium Gluconate 10% 2,000 mg 60 / 60 70 / 70 In Nss 50 ml @ 240 mls/hr IV 0700 LUCIANO Rx#:[id number] K RIDER / WTR 20 meq In 100 ml 194.167 / 194.167 @ 50 mls/hr IV Q2H LUCIANO Rx#: [id number] Potassium Phosphate 30 Mmol In 510 / 510 Nss 500 ml @ 102 mls/hr IV ONE ONE Rx#:[id number] Rocephin 1,000 mg In D5w 50 ml 50 / 50 @ 100 mls/hr IV Q24H LUCIANO Rx#: [id number] FLAGYL 500 mg In 100 ml @ 100 100 / 300 100 / 300 mls/hr IV Q8H LUCIANO Rx#:[id number] Oral 340 / 920 80 / 920 220 / 220 Output: Urine 100 / 100 Stool 100 / 100 Urine Amount (Catheter) 1350 / 4500 1050 / 4500 100 / 100 Temp Sensing Rodriguez 1350 / 4500 1050 / 4500 100 / 100 # Bowel Movements Other: Weight 83.7 kg Diagnostic Findings Telemetry: No atrial fibrillation. Her echocardiogram showed normal left ventricular systolic function, mild mitral regurgitation, mild concentric left ventricular hypertrophy. The left atrial size was normal. PG Care Time/CCT Total # of Minutes Spent Total Time Spent with Patient: Total time spent is greater than 50% in coordination of care (as documented) at patient's floor/unit and/or counseling patient: Coding Level of Care Code 82462 Subseq Hosp Care Lvl 2 Diagnoses New onset a-fib I48.91 Elevated troponin R79.89
[2020-06-04] MEDS ORDERED: HYDROCORTISONE SOD 50 MG in SYRINGE 0 ML IV SCH (14:00)
[2020-06-04] MEDS: AMIODARONE 200 MG TAB PO SCH (17:16)
[2020-06-04] MEDS: QUETIAPINE FUMARATE 25 MG TABLET PO SCH (21:18)
[2020-06-04] MEDS: PRAVASTATIN SOD 20 MG TAB PO SCH (21:18)
[2020-06-05] MEDS: HEPARIN SOD 5,000 UNIT/0.5 ML VIAL SQ SCH ×3 (06:10→21:53)
[2020-06-05] MEDS: LEVOTHYROXINE SODIUM 100 MCG TABLET PO SCH (06:11)
[2020-06-05] MEDS: AMIODARONE 200 MG TAB PO SCH (07:57)
[2020-06-05] MEDS: metroNIDAZOLE 500 MG TAB PO SCH ×3 (07:58→21:53)
[2020-06-05] MEDS: predniSONE 20 MG TAB PO SCH (07:59)
--- NOTE | 2020-06-05 08:01 | Hospitalist Progress Note ---
Date of Service June 05, 2020 Assessment & Plan (1) Gastroenteritis: 74 yo F with PMH inflammatory polyarthritis on chronic prednisone and Plaquenil, HTN, HLD, breast cancer treated with tamoxifen who was admitted for gastroenteritis, severe diarrhea and acidosis, hypovolemic/ septic shock and new onset Afib. Ct abd/Pelv showed thickening of bowel wall with air fluid loops, no pneumoperitoneum or portal venous gas or intestinal pneumatosis, most likely enteritis. unsure if viral or bacterial at this time considered source of septic shock or etiology of dysentery to cause dehydration and hypovolemic shock blood cultures drawn, started on empiric Vanc, cefepime, metronidazole (p enicillin allergy). vancomycin stopped 06/04, transition to cipro/flagyl po on 06/05 adding probiotic, cholestryamine and immodium Stool studies ordered (Stool WBC, culture, ova+parasites) Cdiff negative, covid negative 2 days ago with no new contacts (2) Hypovolemic shock: most likely secondary to dehydration/diarrhea, could be associated with sepsis on presentation received 1 dose of 50 mg hydrocortisone IV for BP support given chronic steroid use for arthritis. will resume daily po prednisone 06/05 (3) JS (acute kidney injury): Resolved, Creatinine up to 3.61 on admission, 1.5 after hydration With associated anion gap metabolic acidosis, hyponatremia CT abdomen/pelvis without evidence of obstruction in the system -low blood pressure persists continue Holding home losartan, hydrochlorothiazide, potassium (4) New onset a-fib: TTE intact EF with mild MR returned to nsr, cardiology does not wish to continue amiodarone or anticoagulation (5) Diarrhea: Stool cultures are negative to date, will add probiotic, cholestyramine and immodium (6) Atrial fibrillation with RVR: returned to nsr, stopping amiodarone 06/05 (7) Acute hyponatremia: Resolved (8) Elevated troponin: myocardial demand ischemia in the setting of profound hypotension and rapid atrial fibrillation No ischemia on ECG and no chest pain Trend troponin 0.18->0.1-.0.08 EchoCardiogram without regional wall motion abnormalities (9) Inflammatory polyarthritis: normally on 5 mg pred daily, now on prednisone po 20 mg, will taper as able continue hydroxychloroquine per home regimen (10) Hypothyroidism: continue home levothyroxine (11) Hypertension: restarting po antihypertensives as blood pressure returns (12) Essential familial hypercholesterolemia: (13) Aortic stenosis: Echocardiogram does not support this diagnosis (14) Asthma: (15) DVT prophylaxis: heparin sc Admission and Anticipated Discharge Date Admission Date: June 02, 2020 Subjective Patient is feeling improved today but still has persistent diarrhea. She has no abdominal pain. Concerned that the vomiting diarrhea will make it hard for her to keep hydrated at home. No further tachycardia and remains in sinus rhythm. Cardiology does not wish to continue amiodarone or anticoagulation but will have surveillance as an outpatient with an event monitor. Review of Systems Review of Systems: Mild distress and continues with moderate fatigue no headache, blurry or double vision no speech or swallowing issues no chest pain, pressure or palpitations no shortness of breath, cough or wheezes Resolved abdominal pain but persistent diarrhea no dysuria, hematuria or frequency no focal joint pain or swelling no back pain, CVA tenderness or radicular pain no bruising, bleeding or rashes no focal signs of weakness or numbness or altered sensation no complaints or anxiety or depression. Physical Exam Physical Exam: The patient appeared awake and alert Vital signs as documented. Head exam is normocephalic atraumatic no scleral icterus Neck is without JVD, thyromegaly, or carotid bruits. Lungs are clear to auscultation, no focal loss of breath sounds Cardiac exam, Rhythm is regular.. No murmurs, rubs or gallops. Abdominal exam reveals hyperactive bowel sounds, soft non, mildly tender no rebound Extremities are nonedematous and both pedal pulses are present Neurologic exam is alert and oriented, no focal loss of strength or sensation Skin is without bruises or rashes Psychologically is without concerns for anxiety or depression. Results & Data Results & Data ([facility]) Vital Signs (Past 12 Hours) Vital Signs Temp Pulse Pulse Pulse Resp BP Pulse Ox 06/05/20 07:58 98.1 F 77 18 128/83 98 06/05/20 03:28 98.1 F 76 16 111/74 94 06/05/20 01:32 70 06/04/20 23:41 97.9 F 80 18 120/76 96 06/04/20 23:36 83 PG Care Time/CCT Total # of Minutes Spent Total Time Spent with Patient: Total time spent is greater than 50% in coordination of care (as documented) at patient's floor/unit and/or counseling patient: Coding Level of Care Code 25618 Subseq Hosp Care Lvl 3 Diagnoses Gastroenteritis K52.9 Hypovolemic shock R57.1 JS (acute kidney injury) N17.9 New onset a-fib I48.91 Diarrhea R19.7 Diarrhea type: unspecified type Atrial fibrillation with RVR I48.91 Acute hyponatremia E87.1 Elevated troponin R79.89 Inflammatory polyarthritis M06.4 Hypothyroidism E03.9 Hypertension I10 Essential familial hypercholesterolemia E78.01 Aortic stenosis I35.0 Asthma J45.909 DVT prophylaxis Z29.9 (1) Diarrhea Diarrhea type: unspecified type Qualified Code(s): R19.7 - Diarrhea, unspecified
[2020-06-05 08:34] LABS: Hematocrit (blood only) 30.5 % (37-47); Hemoglobin 10.4 g/dL (12.0-16.0); Mean Corpuscular Hgb Conc 34.1 g/dL (32-36); Mean Corpuscular Volume 82.2 fL (80-100); Mean Platelet Volume 9.5 fL (7.4-10.4); Platelet Count 344 K/uL (130-400); RDW Coefficient of Variation 16.3 % (11.5-14.5); RDW Standard Deviation 49.1 fL (36.4-46.3); Red Blood Count 3.71 M/uL (4.2-5.4); White Blood Count 6.24 K/uL (4.8-10.8)
[2020-06-05] MEDS: INSULIN ASPART 100 UNITS/ML 3 ML PEN SC SCH ×2 (08:48→12:13)
[2020-06-05 09:06] LABS: Albumin Level 2.5 gm/dl (3.4-5.0); BUN Creatinine Ratio 15.9 (10-20); Calcium 7.7 mg/dl (8.5-10.1); Est GFR (African American) 43.7; Est GFR (Non-African American) 37.7; Potassium 3.7 mmol/L (3.5-5.1)
[2020-06-05 09:11] LABS: Albumin Globulin Ratio 0.8 (0.9-2); Bilirubin,Total 0.4 mg/dl (0.2-1); Globulin 3.3 gm/dl (2.5-4.0); Total Protein 5.8 gm/dl (6.4-8.2)
--- NOTE | 2020-06-05 09:52 | Cardiology Progress Note ---
Date of Service June 05, 2020 Assessment & Plan (1) New onset a-fib: She presented in atrial fibrillation, she was not aware of the rhythm but she was quite ill at the time so she may not have been aware of it for that reason. The duration is not certain. It is interesting to note that her heart rate was generally well controlled historically through February 20, 2020, at that office visit her heart rate was 84, on May 21, 2020 her heart rate was 106, it was then 100 on May 29, 2020 and 118 on May 31, 2020 but electrocardiograms were not done at these times. She then presented on June 02, 2020 with a heart rate of 130 on her vital signs but quite ill. I suspect she may have developed atrial fibrillation sometime between February 19 and May 21 of this year and was unaware of it, although I cannot prove that since we do not have electrocardiograms. This has implications in terms of long-term anticoagulation or at least long-term monitoring. I would keep her on telemetry while she is in the hospital in case she has a symptomatic recurrence which so far she has not. I would recommend discontinuation of amiodarone and not use anticoagulation unless we detect atrial fibrillation on monitoring. (2) Elevated troponin: Her troponin was slightly elevated on presentation with no significant electrocardiographic changes, the troponin dropped over the subsequent 2 measurements consistent with demand ischemia. I would not pursue further evaluation. Admission and Anticipated Discharge Date Admission Date: June 02, 2020 Subjective She is feeling well today, better than before, no palpitations. Physical Exam Physical Exam: Constitutional: Alert, cooperative and in no distress. HEENT: Unremarkable Neck: No jugular venous distention, carotid pulses are normal and equal bilaterally without bruits. Pulmonary: Clear to auscultation bilaterally. Cardiac: Regular rhythm with no murmur, gallop or rub. Abdomen: Soft, nontender with normal bowel sounds. Extremities: No edema. Distal pulses intact. Neurologic: No focal findings. Gait is steady. Skin: No rash, ecchymoses or petechiae. Results & Data ([facility]) Vital Signs (Past 12 Hours) Vital Signs Temp Pulse Pulse Pulse Resp BP Pulse Ox 06/05/20 07:58 36.7 C 77 18 128/83 98 06/05/20 03:28 36.7 C 76 16 111/74 94 06/05/20 01:32 70 06/04/20 23:41 36.6 C 80 18 120/76 96 06/04/20 23:36 83 Laboratory Results Cardiac Enzymes 06/05/20 Range/Units 08:24 AST 20 (15-37) U/L CBC 06/05/20 Range/Units 08:24 WBC 6.24 (4.8-10.8) K/uL RBC 3.71 L (4.2-5.4) M/uL Hgb 10.4 L (12.0-16.0) g/dL Hct 30.5 L (37-47) % Plt Count 344 (130-400) K/uL Comprehensive Metabolic Panel 06/05/20 Range/Units 08:24 Sodium 144 (136-145) mmol/L Potassium 3.7 D (3.5-5.1) mmol/L Chloride 119 H (98-107) mmol/L Carbon Dioxide 18 L (21-32) mmol/L BUN 22 H (7-18) mg/dl Creatinine 1.36 H (0.6-1.2) mg/dl Glucose 98 (70-99) mg/dl Calcium 7.7 L D (8.5-10.1) mg/dl AST 20 (15-37) U/L ALT 21 (12-78) U/L Alkaline Phosphatase 86 (45-117) U/L Total Protein 5.8 L (6.4-8.2) gm/dl Albumin 2.5 L (3.4-5.0) gm/dl Intake and Output 06/04/20 06/05/20 06/05/20 22:59 06:59 14:59 Intake Total 600 / 2377.650 200 / 2377.650 Output Total 2 / 304 Balance 598 / 2073.650 200 / 2073.650 Intake: IV 100 / 1207.650 K RIDER / WTR 20 meq In 100 ml 100 / 394.167 @ 50 mls/hr IV Q2H LUCIANO Rx#: [id number] Oral 500 / 1170 200 / 1170 Output: # Bowel Movements 2 / 3 Other: # Unmeasured Voids 2 Weight 80.8 kg Diagnostic Findings Telemetry: Sinus rhythm, no atrial fibrillation PG Care Time/CCT Total # of Minutes Spent Total Time Spent with Patient: Total time spent is greater than 50% in coordination of care (as documented) at patient's floor/unit and/or counseling patient: Coding Level of Care Code 39410 Subseq Hosp Care Lvl 2 Diagnoses New onset a-fib I48.91 Elevated troponin R79.89
[2020-06-05] MEDS: cefTRIAXone SODIUM 1,000 MG in DEXTROSE 5% 50 ML IV SCH (10:06)
--- NOTE | 2020-06-05 10:26 | Pharmacy Report ---
Pharmacy Glycemic Sign Off Nt - Date of Service June 05, 2020 - Assessment & Plan ASSESSMENT: * Patient is not on any diabetes medications at home. HbA1c this admission is 6.6% which is suggestive of diabetes, but may be at goal for this patient * BSG's have ranged 99-125 mg/dL over the last 24 hours with only 3 units of Novolog admin at dinner yesterday 2nd CHO coverage. * Currently on Novolog monotherapy - was weight-based moderate stress estimate CHO ratio was loosened from 10 to 12 this AM 2nd steroid taper and lower BSGs * Dr. Belcher is aware and OK with pharmacy signing off at this time PLAN FOR INPATIENT GLYCEMIC CONTROL: No changes needed to current regimen. * Continue hold basal insulin * Continue NovoLog per scale ACHS/Q6hrs while NPO * Goal range = 110-140 mg/dl * CF = 30 mg/dl/unit * CR = 1 unit for ever 12 g CHO consumed Discharge recommendations * Follow-up as an outpatient to determine if addition of metformin may be beneficial Pharmacy is signing off of glycemic consult and will no longer be making adjustments to inpatient regimen. Please feel free to re-consult if needed. Thank you.
[2020-06-05] MEDS ORDERED: LOPERAMIDE HCL 2 MG CAP PO PRN (13:51)
[2020-06-05] MEDS: PHENYLEPHRINE HCL 20 MG in DEXTROSE 5% 500 ML IV SCH (13:56)
[2020-06-05] MEDS: SACCHAROMYCES BOULARDII 250 MG CAP PO SCH (15:35)
[2020-06-05] MEDS: CHOLESTYRAMINE LIGHT 4 GM PKT PO SCH ×2 (15:35→23:43)
[2020-06-05] MEDS: QUETIAPINE FUMARATE 25 MG TABLET PO SCH (20:55)
[2020-06-05] MEDS: CIPROFLOXACIN 500 MG TAB PO SCH (20:55)
[2020-06-05] MEDS: FAMOTIDINE 20 MG TAB PO SCH (20:55)
[2020-06-05] MEDS: PRAVASTATIN SOD 20 MG TAB PO SCH (20:55)
[2020-06-06] MEDS: LEVOTHYROXINE SODIUM 100 MCG TABLET PO SCH (06:00)
[2020-06-06] MEDS: HEPARIN SOD 5,000 UNIT/0.5 ML VIAL SQ SCH ×3 (06:00→21:26)
[2020-06-06] MEDS: metroNIDAZOLE 500 MG TAB PO SCH ×3 (08:05→21:24)
[2020-06-06] MEDS: PANTOprazole 40 MG TAB PO SCH (08:05)
[2020-06-06] MEDS: LOSARTAN POTASSIUM 50 MG TAB PO SCH (08:05)
[2020-06-06] MEDS: SACCHAROMYCES BOULARDII 250 MG CAP PO SCH (08:05)
[2020-06-06] MEDS: FAMOTIDINE 20 MG TAB PO SCH ×2 (08:06→21:24)
[2020-06-06] MEDS: HYDROXYCHLOROQUINE SULFATE 200 MG TAB PO SCH (08:06)
[2020-06-06] MEDS: predniSONE 20 MG TAB PO SCH (08:06)
[2020-06-06] MEDS: CIPROFLOXACIN 500 MG TAB PO SCH ×2 (08:06→21:25)
[2020-06-06] MEDS: CHOLESTYRAMINE LIGHT 4 GM PKT PO SCH ×2 (09:44→21:26)
[2020-06-06] MEDS ORDERED: LOPERAMIDE HCL 2 MG CAP PO STA (16:34)
[2020-06-06] MEDS ORDERED: PSYLLIUM 58.6% POWDER PACKET PO ONE (16:36)
--- NOTE | 2020-06-06 16:41 | Hospitalist Progress Note ---
Date of Service June 06, 2020 Assessment & Plan (1) Gastroenteritis: 74 yo F with PMH inflammatory polyarthritis on chronic prednisone and Plaquenil, HTN, HLD, breast cancer treated with tamoxifen who was admitted for gastroenteritis, severe diarrhea and acidosis, hypovolemic/ septic shock and new onset Afib. Ct abd/Pelv showed thickening of bowel wall with air fluid loops, no pneumoperitoneum or portal venous gas or intestinal pneumatosis, most likely enteritis. unsure if viral or bacterial at this time considered source of septic shock or etiology of dysentery to cause dehydration and hypovolemic shock blood cultures drawn, started on empiric Vanc, cefepime, metronidazole (p enicillin allergy). vancomycin stopped 06/04, transition to cipro/flagyl po on 06/05 adding probiotic, cholestryamine and immodium, given additional dose of imodium and starting fiber 06/06 Stool studies ordered (Stool WBC, culture, ova+parasites) Cdiff negative, covid negative 2 days ago with no new contacts (2) Hypovolemic shock: resolved most likely secondary to dehydration/diarrhea, could be associated with sepsis on presentation received 1 dose of 50 mg hydrocortisone IV for BP support given chronic steroid use for arthritis. will resume daily po prednisone 06/05, reduced to 15 mg 06/06 (3) JS (acute kidney injury): Resolved, Creatinine up to 3.61 on admission, 1.5 after hydration With associated anion gap metabolic acidosis, hyponatremia CT abdomen/pelvis without evidence of obstruction in the system -bp is rising, restarted losartan (4) New onset a-fib: TTE intact EF with mild MR returned to nsr, cardiology does not wish to continue amiodarone or anticoagulation (5) Diarrhea: Stool cultures are negative to date, will add probiotic, cholestyramine and immodium (6) Atrial fibrillation with RVR: returned to nsr, stopping amiodarone 06/05 (7) Acute hyponatremia: Resolved (8) Elevated troponin: myocardial demand ischemia in the setting of profound hypotension and rapid atrial fibrillation No ischemia on ECG and no chest pain Trend troponin 0.18->0.1-.0.08 EchoCardiogram without regional wall motion abnormalities (9) Inflammatory polyarthritis: normally on 5 mg pred daily, now on prednisone po 20 mg, will taper as able continue hydroxychloroquine per home regimen (10) Hypothyroidism: continue home levothyroxine (11) Hypertension: restarting po antihypertensives as blood pressure returns (12) Essential familial hypercholesterolemia: (13) Aortic stenosis: Echocardiogram does not support this diagnosis (14) Asthma: (15) DVT prophylaxis: heparin sc Admission and Anticipated Discharge Date Admission Date: June 02, 2020 Subjective Patient is feeling improved today but still has persistent diarrhea, she does not feel that she is able to go home given the amount of stool output. She has no abdominal pain. No further tachycardia and remains in sinus rhythm. Cardiology does not wish to continue amiodarone or anticoagulation but will have surveillance as an outpatient with an event monitor. Review of Systems Review of Systems: Mild distress and continues with moderate fatigue no headache, blurry or double vision no speech or swallowing issues no chest pain, pressure or palpitations no shortness of breath, cough or wheezes Resolved abdominal pain but persistent diarrhea no dysuria, hematuria or frequency no focal joint pain or swelling no back pain, CVA tenderness or radicular pain no bruising, bleeding or rashes no focal signs of weakness or numbness or altered sensation no complaints or anxiety or depression. Physical Exam Physical Exam: The patient appeared awake and alert Vital signs as documented. Head exam is normocephalic atraumatic no scleral icterus Neck is without JVD, thyromegaly, or carotid bruits. Lungs are clear to auscultation, no focal loss of breath sounds Cardiac exam, Rhythm is regular.. No murmurs, rubs or gallops. Abdominal exam reveals hyperactive bowel sounds, soft non, mildly tender no rebound Extremities are nonedematous and both pedal pulses are present Neurologic exam is alert and oriented, no focal loss of strength or sensation Skin is without bruises or rashes Psychologically is without concerns for anxiety or depression. Results & Data Results & Data ([facility]) Vital Signs (Past 12 Hours) Vital Signs Temp Pulse Resp BP BP Pulse Ox 06/06/20 15:08 98.4 F 82 20 158/90 H 96 06/06/20 07:25 98.2 F 75 20 148/89 H 96 PG Care Time/CCT Total # of Minutes Spent Total Time Spent with Patient: Total time spent is greater than 50% in coordination of care (as documented) at patient's floor/unit and/or counseling patient: Coding Level of Care Code 52543 Subseq Hosp Care Lvl 3 Diagnoses Gastroenteritis K52.9 Hypovolemic shock R57.1 JS (acute kidney injury) N17.9 New onset a-fib I48.91 Diarrhea R19.7 Diarrhea type: unspecified type Atrial fibrillation with RVR I48.91 Acute hyponatremia E87.1 Elevated troponin R79.89 Inflammatory polyarthritis M06.4 Hypothyroidism E03.9 Hypertension I10 Essential familial hypercholesterolemia E78.01 Aortic stenosis I35.0 Asthma J45.909 DVT prophylaxis Z29.9 (1) Diarrhea Diarrhea type: unspecified type Qualified Code(s): R19.7 - Diarrhea, uns pecified
[2020-06-06] MEDS: PRAVASTATIN SOD 20 MG TAB PO SCH (21:24)
[2020-06-06] MEDS: QUETIAPINE FUMARATE 25 MG TABLET PO SCH (21:25)
[2020-06-07] MEDS ORDERED: metroNIDAZOLE 500 MG TAB PO SCH
[2020-06-07] MEDS ORDERED: CIPROFLOXACIN 500 MG TAB PO SCH
[2020-06-07] MEDS: HEPARIN SOD 5,000 UNIT/0.5 ML VIAL SQ SCH ×2 (05:44→13:28)
[2020-06-07] MEDS: LEVOTHYROXINE SODIUM 100 MCG TABLET PO SCH (05:44)
[2020-06-07] MEDS ORDERED: PSYLLIUM 58.6% POWDER PACKET PO SCH (09:00)
[2020-06-07] MEDS ORDERED: predniSONE 5 MG TAB PO SCH (09:00)
[2020-06-07] MEDS: CIPROFLOXACIN 500 MG TAB PO SCH (09:21)
[2020-06-07] MEDS: metroNIDAZOLE 500 MG TAB PO SCH ×2 (09:21→13:28)
[2020-06-07] MEDS: FAMOTIDINE 20 MG TAB PO SCH (09:21)
[2020-06-07] MEDS: LOSARTAN POTASSIUM 50 MG TAB PO SCH (09:22)
[2020-06-07] MEDS: HYDROXYCHLOROQUINE SULFATE 200 MG TAB PO SCH (09:22)
[2020-06-07] MEDS: SACCHAROMYCES BOULARDII 250 MG CAP PO SCH (09:22)
[2020-06-07] MEDS: PANTOprazole 40 MG TAB PO SCH (09:23)
[2020-06-07] MEDS: CHOLESTYRAMINE LIGHT 4 GM PKT PO SCH (10:33)
[2020-06-07] MEDS ORDERED: CONSULT PHARMACY STA (10:56)
--- NOTE | 2020-06-07 15:38 | Discharge Summary ---
Date of Service June 07, 2020 Principal Diagnosis hypovolemic shock from diarrhea treatment for infectious diarrhea js resolved atrial fibrillation elevated troponin Discharge Exam The patient appeared well Vital signs as documented. Lungs are clear to auscultation and appear unlabored Cardiac exam, Rhythm is regular.. No murmurs, rubs or gallops. Abdominal exam reveals normal bowel sounds, soft non tender, no masses Extremities are nonedematous and both pedal pulses are normal. Neurologic exam is alert and oriented, no focal loss of strength or sensation Skin is without bruises or rashes Psychologically is without concerns for anxiety or depression. Discharge Data Allergies Allergy/AdvReac Type Severity Reaction Status Date / Time Penicillins Allergy Mild RASH Verified 06/02/20 17:35 oxycodone Allergy Unknown severe Verified 06/02/20 17:35 nausea/vomiting clarithromycin [From Biaxin] Allergy Unknown Verified 06/02/20 17:35 codeine AdvReac Intermediate UPSET Verified 06/02/20 17:35 STOMACH, NO REACTIONS TO OTHER NARCOTICS Sulfa (Sulfonamide AdvReac Mild GI UPSET Verified 06/02/20 17:35 Antibiotics) adhesive AdvReac Unknown RASH AND Verified 06/02/20 17:35 REDNESS latex AdvReac Unknown Verified 06/02/20 17:35 Consultations 06/02/20 15:14 ED Decision to Admit Stat 06/02/20 16:00 Consult Glove Tagger Routine 06/02/20 16:02 Consult Case Management - Discharge Planning Routine 06/02/20 18:54 Consult Cardiology Routine Ordered Studies 06/02/20 14:02 CT abd pelvis wo con Stat 06/02/20 19:15 US point of care ultrasound Urgent Diabetes Follow up Diabetes Follow-up Needed for Newly Diagnosed Diabetes Hospital Course (1) Gastroenteritis: 74 yo F with PMH inflammatory polyarthritis on chronic prednisone and Plaquenil, HTN, HLD, breast cancer treated with tamoxifen who was admitted for gastroenteritis, severe diarrhea and acidosis, hypovolemic/ septic shock and new onset Afib. Ct abd/Pelv showed thickening of bowel wall with air fluid loops, no pneumoperitoneum or portal venous gas or intestinal pneumatosis, most likely enteritis. unsure if viral or bacterial at this time considered source of septic shock or etiology of dysentery to cause dehydration and hypovolemic shock blood cultures drawn, started on empiric Vanc, cefepime, metronidazole (penicillin allergy). vancomycin stopped 06/04, transition to cipro/flagyl po on 06/05-> discharge on the same adding probiotic, cholestryamine and immodium, given additional dose of imodium and starting fiber 06/06 Stool studies ordered (Stool WBC, culture, ova+parasites) Cdiff negative, covid negative encourage Metamucil and prn Imodium with close outpt follow up (2) Hypovolemic shock: resolved most likely secondary to dehydration/diarrhea, could be associated with sepsis on presentation received 1 dose of 50 mg hydrocortisone IV for BP support given chronic steroid use for arthritis. will resume daily po prednisone 06/05, reduced to 15 mg 06/06 will resume 5 mg once home (3) JS (acute kidney injury): Resolved, Creatinine up to 3.61 on admission, 1.5 after hydration With associated anion gap metabolic acidosis, hyponatremia CT abdomen/pelvis without evidence of obstruction in the system restarted losartan (4) New onset a-fib: TTE intact EF with mild MR returned to nsr, cardiology does not wish to continue amiodarone or anticoagulation feels afib from physiologic stressors (5) Diarrhea: Stool cultures are negative to date, will add probiotic, cholestyramine and immodium (6) Atrial fibrillation with RVR: returned to nsr, stopping amiodarone 06/05 (7) Acute hyponatremia: Resolved (8) Elevated troponin: myocardial demand ischemia in the setting of profound hypotension and rapid atrial fibrillation No ischemia on ECG and no chest pain Trend troponin 0.18->0.1-.0.08 EchoCardiogram without regional wall motion abnormalities (9) Inflammatory polyarthritis: normally on 5 mg pred daily continue hydroxychloroquine per home regimen (10) Hypothyroidism: continue home levothyroxine (11) Hypertension: restarting po antihypertensives (12) Essential familial hypercholesterolemia: (13) Aortic stenosis: Echocardiogram does not support this diagnosis (14) Asthma: (15) DVT prophylaxis: heparin sc Total Time Total Time Spent Total Time Spent (In Minutes): It required greater than 30 minutes to prepare this patient for discharge Discharge Plan Discharge Items Patient Disposition: Home - Self-Care Reason For Visit: DIARRHEA, ELEVATED TROP, JS, LACIC ACIDOSIS Discharge Diagnosis: diarrheal illness hypovolemic shock Activity: Resume your previous activity Non-emergency contact: Primary Care Provider Call non-emergency contact if: you have any medication questions and your symptoms worsen Follow-up/Referrals: Cuate Méndez MD [Primary Care Provider] - Diet: Low Fat Addtl Attending Provider Instructions: you have a resolving diarrheal illness please take your Metamucil until your stool returns to normal then stop, since we have tested your diarrhea and are treating you with antibiotics, you may use imodium sparingly if you feel your stool production is too high please follow up with Dr Méndez in one week or so please focus on good hydration and nutrition this week rest and pace yourself with exercise Pending Studies at Discharge: No Stand-Alone Forms: My [facility] [employer], Smoking Cessation Medications and DC Order Prescriptions: New metronidazole 500 mg Tablet 500 mg PO TID Qty: 15 RF: 0 ciprofloxacin HCl 500 mg Tablet 500 mg PO BID Qty: 10 RF: 0 Metamucil (with sugar) 3.4 gram Powder In Packet 1 ea PO QAM Qty: 30 RF: 0 Continued omeprazole 20 mg tablet,delayed release (DR/EC) 20 mg PO QAM Qty: 90 RF: 3 verapamil 120 mg tablet extended release 120 mg PO QAM Qty: 90 RF: 3 rizatriptan 10 mg tablet,disintegrating See Rx Instructions PO .COMPLEX 30 Days Qty: 9 RF: 1 cyclobenzaprine 5 mg tablet 5 mg PO BID PRN (Reason: muscle spasm) 30 Days Qty: 60 RF: 0 prednisone 5 mg tablet 5 mg PO PRN RF: 0 hydrocodone-acetaminophen 5-325 mg tablet 0.5 tab PO UD PRN (Reason: pain) RF: 0 pravastatin 20 mg tablet 20 mg PO HS RF: 0 losartan 100 mg tablet 100 mg PO QAM RF: 0 hydrochlorothiazide 12.5 mg tablet 12.5 mg PO QAM RF: 0 levothyroxine 100 mcg capsule 100 mcg PO QAM RF: 0 potassium chloride [Klor-Con M20] 20 mEq tablet,ER particles/crystals 20 meq PO BID Qty: 10 RF: 0 famotidine 20 mg tablet 20 mg PO BID Qty: 20 RF: 0 ondansetron 4 mg tablet,disintegrating 4 mg PO Q6H PRN (Reason: nausea and vomiting) Qty: 14 RF: 0 fluticasone propion-salmeterol [Advair Diskus] 250-50 mcg/dose Blister With Device 1 inh INHALATION QAM PRN (Reason: asthma symptoms) RF: 0 clindamycin HCl 300 mg Capsule 600 mg PO DAILY PRN (Reason: DENTAL WORK) RF: 0 tramadol 50 mg Tablet 50 mg PO Q6H PRN (Reason: Pain) RF: 0 hydroxychloroquine [Plaquenil] 200 mg Tablet 200 mg PO QAM RF: 0 diphenhydramine-acetaminophen [Tylenol PM Extra Strength] 25-500 mg Tablet 1 tab PO HS PRN (Reason: Sleep) RF: 0 coenzyme Q10 [CoQ-10] 100 mg Capsule 100 mg PO QAM RF: 0 cholecalciferol (vitamin D3) [Vitamin D3] 2,000 unit Tablet 2,000 unit PO QAM RF: 0 biotin 5,000 mcg tablet,disintegrating 5,000 mcg PO QAM RF: 0 Discharge Orders: Discharge Order (Routine); Ordered 06/07/20 Ordered By: Chuy Rendon/Other Patient Handouts: Diabetes: Meal Planning, A1C Admission Data Admit Date/Time: 06/02/20 15:58 Attending Provider: Chuy Belcher Admit Provider: Deisy Winkler Primary Care Provider: Cuate Méndez Other Providers: Tammie Pace ; Dylan Hyatt ; Pb uKhn Other Interventions: Discharge Summary Assessment (RN) Last Done: 06/07/20 11:28 Coding Level of Care Code D/C Day Management >30 mins Diagnoses Gastroenteritis K52.9 Hypovolemic shock R57.1 JS (acute kidney injury) N17.9 New onset a-fib I48.91 Diarrhea R19.7 Diarrhea type: unspecified type Atrial fibrillation with RVR I48.91 Acute hyponatremia E87.1 Elevated troponin R79.89 Inflammatory polyarthritis M06.4 Hypothyroidism E03.9 Hypertension I10 Essential familial hypercholesterolemia E78.01 Aortic stenosis I35.0 Asthma J45.909 DVT prophylaxis Z29.9
== END 2020-06-07 14:10 | disposition home or self-care (01) | DRG 871 ==
LOC: ED 13:20 → SUATTDRO 15:58 → 1E 15:58 → 2E 06-04 15:30 → 2W 06-05 13:54

== ENCOUNTER 2024-05-08 06:28 | Observation (INO) ==
--- NOTE | 2024-04-19 10:42 | PAT Medication Instructions ---
Medication Instructions Date of Service April 19, 2024 Home Medications Medication Instructions Recorded meclizine 25 mg tablet 25 mg PO TID PRN vertigo #90 tabs 03/01/22 fluticasone 250 mcg-salmeterol 50 1 inh inhalation QAM PRN asthma 08/29/22 mcg/dose blistr powdr for symptoms #60 ea inhalation (Advair Diskus) rizatriptan 10 mg tablet (Maxalt) 10 mg PO DAILY PRN migraine 03/10/23 headache #10 tabs pravastatin 20 mg tablet 20 mg PO HS #90 tabs 12/11/23 verapamil 120 mg 24 hr 120 mg PO QAM #90 caps 04/11/24 capsule,extended release hydrocodone 5 mg-acetaminophen 325 1 tab PO Q8H PRN Pain #90 tabs 04/17/24 mg tablet cholecalciferol (vitamin D3) 50 mcg (2,000 unit) tablet (Vitamin D3) 2,000 unit PO QAM clindamycin HCl 300 mg capsule 600 mg PO DAILY PRN aspirin 81 mg tablet,delayed release (Yuliet Low Dose Aspirin) 81 mg PO HS ursodiol 500 mg tablet (OLIVIA Forte) 500 mg PO BID meclizine 25 mg tablet 25 mg PO TID PRN fluticasone 250 mcg-salmeterol 50 mcg/dose blistr powdr for inhalation (Advair Diskus) 1 inh inhalation QAM PRN ondansetron HCl 4 mg tablet 4 mg PO Q8H PRN denosumab 60 mg/mL subcutaneous syringe (Prolia) 60 mg subcut .[id number] rizatriptan 10 mg tablet (Maxalt) 10 mg PO DAILY PRN cyanocobalamin (vitamin B-12) 1,000 mcg tablet 1,000 mcg PO QAM hydrochlorothiazide 25 mg tablet 25 mg PO QAM losartan 50 mg tablet 50 mg PO QAM prednisone 5 mg tablet 5 mg PO QAM pravastatin 20 mg tablet 20 mg PO HS verapamil 120 mg 24 hr capsule,extended release 120 mg PO QAM hydrocodone 5 mg-acetaminophen 325 mg tablet 1 tab PO Q8H PRN diphenhydramine 25 mg-acetaminophen 500 mg tablet (Tylenol PM Extra Strength) 1 tab PO HS PRN levothyroxine 137 mcg tablet 137 mcg PO QAM omeprazole 20 mg capsule,delayed release 20 mg PO QAM Continue as directed clindamycin HCl 300 mg capsule 600 mg PO DAILY PRN(if needed) rizatriptan 10 mg tablet (Maxalt) 10 mg PO DAILY PRN(if needed) ASK your prescriber and surgeon aspirin 81 mg tablet,delayed release (Yuliet Low Dose Aspirin) 81 mg PO HS denosumab 60 mg/mL subcutaneous syringe (Prolia) 60 mg subcut .[id number] DO NOT take the morning of surgery cholecalciferol (vitamin D3) 50 mcg (2,000 unit) tablet (Vitamin D3) 2,000 unit PO QAM ursodiol 500 mg tablet (OLIVIA Forte) 500 mg PO BID cyanocobalamin (vitamin B-12) 1,000 mcg tablet 1,000 mcg PO QAM hydrochlorothiazide 25 mg tablet 25 mg PO QAM losartan 50 mg tablet 50 mg PO QAM Take morning of surgery With a small sip of water, OTHERWISE NOTHING TO EAT OR DRINK AFTER MIDNIGHT: meclizine 25 mg tablet 25 mg PO TID PRN(if needed) fluticasone 250 mcg-salmeterol 50 mcg/dose blistr powdr for inhalation (Advair Diskus) 1 inh inhalation QAM PRN(if needed) ondansetron HCl 4 mg tablet 4 mg PO Q8H PRN(if needed) prednisone 5 mg tablet 5 mg PO QAM verapamil 120 mg 24 hr capsule,extended release 120 mg PO QAM hydrocodone 5 mg-acetaminophen 325 mg tablet 1 tab PO Q8H PRN(if needed) levothyroxine 137 mcg tablet 137 mcg PO QAM omeprazole 20 mg capsule,delayed release 20 mg PO QAM Take evening before surgery ursodiol 500 mg tablet (OLIVIA Forte) 500 mg PO BID meclizine 25 mg tablet 25 mg PO TID PRN(if needed) ondansetron HCl 4 mg tablet 4 mg PO Q8H PRN(if needed) pravastatin 20 mg tablet 20 mg PO HS hydrocodone 5 mg-acetaminophen 325 mg tablet 1 tab PO Q8H PRN(if needed) diphenhydramine 25 mg-acetaminophen 500 mg tablet (Tylenol PM Extra Strength) 1 tab PO HS PRN(if needed) Other Notes If you have any questions please call us at [phone] or [phone] or [phone] or [phone]
--- NOTE | 2024-04-23 09:52 | Anesthesiology Consultation ---
Date of Service April 23, 2024 Assessment & Plan (1) Encounter for pre-operative examination: - Check BSG AM DOS (A1C 6.5% on 04/2024 preop labs, previously 6.2% on 12/2023 labs- PCP made aware) - Infectious disease screening: Per assessment on 04/23/24: No known recent infectious disease contacts or current infectious disease symptoms. - Outpatient joint assessment: Pt currently scheduled for inpatient pathway. If surgeon requests review for outpatient joint pathway, patient is not recommended candidate for outpatient joint program from anesthesia standpoint based on available information. - Patient acceptable risk for surgery pending surgeon-ordered PCP preop evaluation ([facility], appt 05/03). Chart Review Chart Review: Patient seen in Pre Admission Testing Teaching & Discussion Pre-Anesthesia Teaching/Discussion Notes: Instructed NPO after midnight before surgery,except medications with 15 cc of water. Medication instructions provided according to the PAT guidelines. History Surgery Operation Date: 05/08/24 09:00 Proposed Procedures p Left Total Knee Arthroplasty - Thomas Hurd MD Height/Weight Height: 5 ft 5 in Weight: 71.4 kg Allergies Allergy/AdvReac Type Severity Reaction Status Date / Time Penicillins Allergy Mild Rash Verified 04/22/24 15:31 clarithromycin [From Biaxin] Allergy Unknown Unknown Verified 04/18/24 14:49 oxycodone Allergy Unknown Severe Verified 04/22/24 15:31 nausea/vomiting codeine AdvReac Intermediate Upset Verified 04/22/24 15:31 stomach latex AdvReac Intermediate Rash Verified 04/18/24 14:49 Sulfa (Sulfonamide AdvReac Mild GI upset Verified 04/22/24 15:31 Antibiotics) adhesive AdvReac Unknown Rash, Verified 04/22/24 15:31 redness topamax AdvReac Unknown Vomiting Uncoded 04/18/24 14:49 Medications Home Medications Medication Instructions Recorded Confirmed Last Taken cholecalciferol (vitamin D3) 50 2,000 unit PO QAM 04/16/19 04/18/24 12/20/23 06:30 mcg (2,000 unit) tablet (Vitamin D3) clindamycin HCl 300 mg capsule 600 mg PO DAILY PRN DENTAL WORK 04/16/19 04/18/24 05/13/19 aspirin 81 mg tablet,delayed 81 mg PO HS 06/30/20 04/18/24 10/07/21 release (Yuliet Low Dose Aspirin) ursodiol 500 mg tablet (OLIVIA Forte) 500 mg PO BID 11/25/21 04/18/24 Unknown meclizine 25 mg tablet 25 mg PO TID PRN vertigo #90 tabs 03/01/22 04/18/24 Unknown fluticasone 250 mcg-salmeterol 50 1 inh inhalation QAM PRN asthma 08/29/22 04/18/24 Unknown mcg/dose blistr powdr for symptoms #60 ea inhalation (Advair Diskus) ondansetron HCl 4 mg tablet 4 mg PO Q8H PRN nausea and vomiting 11/30/22 04/18/24 Unknown denosumab 60 mg/mL subcutaneous 60 mg subcut .[id number] 12/27/22 04/18/24 Unknown syringe (Prolia) rizatriptan 10 mg tablet (Maxalt) 10 mg PO DAILY PRN migraine 03/10/23 04/18/24 12/20/23 06:30 headache #10 tabs cyanocobalamin (vitamin B-12) 1,000 mcg PO QAM 12/07/23 04/18/24 12/20/23 06:30 1,000 mcg tablet hydrochlorothiazide 25 mg tablet 25 mg PO QAM 12/07/23 04/18/24 12/20/23 06:30 losartan 50 mg tablet 50 mg PO QAM 12/07/23 04/18/24 12/20/23 06:30 prednisone 5 mg tablet 5 mg PO QAM RA 12/07/23 04/18/24 12/20/23 06:30 pravastatin 20 mg tablet 20 mg PO HS #90 tabs 12/11/23 04/18/24 Unknown verapamil 120 mg 24 hr 120 mg PO QAM #90 caps 04/11/24 04/18/24 Unknown capsule,extended release hydrocodone 5 mg-acetaminophen 325 1 tab PO Q8H PRN Pain #90 tabs 04/17/24 04/18/24 Unknown mg tablet diphenhydramine 25 1 tab PO HS PRN Sleep+pain 04/18/24 04/18/24 Unknown mg-acetaminophen 500 mg tablet (Tylenol PM Extra Strength) levothyroxine 137 mcg tablet 137 mcg PO QAM 04/18/24 04/18/24 Unknown omeprazole 20 mg capsule,delayed 20 mg PO QAM 04/18/24 04/18/24 Unknown release Past Medical History Medical History Aortic stenosis Noted per remote records but no evidence of aortic stenosis on most recent Echo 05/2020 Asthma Chronic back pain CVA (cerebral vascular accident) Patient denies [facility] neuro visit 06/2020 notes hx of subacute left frontal ischemic CVA Degeneration of cervical intervertebral disc GERD (gastroesophageal reflux disease) History of atrial fibrillation Single episode is setting of acute illness (2019) No issues since Hx of melanoma of skin HX: breast cancer (1999) Left breast treated with radiation and tamoxifen Hyperlipidemia Hypertension Hypothyroidism Inflammatory polyarthritis Follows with Rheumatology at [facility] Treated with prednisone daily medical terminologist (current) use of systemic steroids Migraines Motion sickness Osteoarthritis Osteopenia Primary biliary cholangitis + elevated LFTs Follows with Anna Taking Ursodiol SNHL (sensorineural hearing loss) Exercise / Class Metabolic Activity II 4-5 Yardwork/Stairs/Walk up hill (one FS: No CP, no SOB) Past Family History Family History Mother Breast cancer Father Myocardial infarction Other No family history of adverse response to anesthesia Denies family history of Ovarian cancer Prostate cancer Colorectal cancer Past Surgical History Surgical History H/O radiofrequency ablation (RFA) of nerve of lumbar spine Dr. Kline History of carpal tunnel release R/L History of cholecystectomy History of colonoscopy History of knee replacement procedure of right knee History of lumpectomy of left breast Hx of hernia repair Hx of left cataract extraction Hx of melanoma excision Hx of right cataract extraction Past Anesthesia History No Hx of Anesthesia Complications and No Family Hx of Anesthesia Complications History of PONV No Hx of PONV and Hx of Motion Sickness Social History Smoking Status: Never smoker Do You Dip or Chew Tobacco: No Hx Alcohol Use: No substance use type: does not use and marijuana (Remote hx of medical marijuana use) Review of Systems Patient denies chest pain, shortness of breath, dyspnea on exertion, fever, chills, cough, wheezing. Physical Exam Vital Signs BP 129/83 P 80 TEMP 97.7 SP02 100%RA RESP 16 Physical Full cervical extension range of motion. Full TMJ range of motion. TMD 3 finger breaths Mallampati Score III Dentition: intact, + crowns, right upper bridge Lungs: clear throughout to auscultation Cardiac: regular rate and rhythm, no murmurs noted Spine: normal Carotid arteries: negative bruit Extremities: no LE edema Lab Results Anesthesia Preop Results Results Anesthesia Widget: WBC 7.96 K/ul (4.8-10.8) 04/23/24 Hgb 13.0 g/dl (12.0-16.0) 04/23/24 Hct 39.8 % (37.0-47.0) 04/23/24 Plt 249 K/uL (130-400) 04/23/24 Na 138 mmol/L (136-145) 04/23/24 K 3.5 mmol/L (3.5-5.1) 04/23/24 Cl 100 mmol/L (98-107) 04/23/24 CO2 30 mmol/L (21-32) 04/23/24 BUN 25 mg/dl (6-23) H 04/23/24 Creat 0.95 mg/dl (0.6-1.2) 04/23/24 Glucose Level 106 mg/dl (70-99(Fasting)) H 04/23/24 PT 10.3 Seconds (9.0-12.0) 04/23/24 PTT 25 Seconds (21-31) 04/23/24 INR 0.9 (0.9-1.1) 04/23/24 TSH 0.600 uIu/ml (0.300-4.500) 03/04/24 HA1c 6.5 % (4.5-5.6) H 04/23/24 Urine Color Yellow 04/23/24 Urine Appearance Clear (Clear) 04/23/24 Urine pH 7.0 (4.5-7.5) 04/23/24 Urine Specific [place] 1.006 (1.000-1.030) 04/23/24 Urine Protein Negative (Negative) 04/23/24 Urine Glucose (UA) Negative (Negative) 04/23/24 Urine Ketones Negative (Negative) 04/23/24 Urine Blood Negative (Negative) 04/23/24 Urine Nitrite Negative (Negative) 04/23/24 Urine Bilirubin Negative (Negative) 04/23/24 Urine Urobilinogen Negative (Negative) 04/23/24 Urine Leukocyte Esterase Negative (Negative) 04/23/24 Blood Type A Positive 04/23/24 Antibody Screen NEGATIVE 04/23/24 Testing Electrocardiogram Date: 04/23/24 Findings: + NSR @ (69) Chest X-Ray Date: 04/23/24 Findings: + NAD
--- NOTE | 2024-05-08 05:23 | History & Physical Bridge Note ---
Date of Service May 08, 2024 History & Physical Bridge Note I have examined the patient, reviewed the History & Physical and in the interval since the performance of the History & Physical I have noted the following changes of clinical significance: no changes noted
[~2024-05-08 06:28] MED LIST changes: -ADVIN50/60 INH; -ALBUAER19 INH; -ASPI-461 PO; -BIOTCAP2 PO; +BUPIVACAINE 0.5 % 5 MG/1 ML PF 10ML VIAL ONE; -CHOL1000 PO; -CLB100 PO; -CLIN300C10 PO; -COEN1CAP17 PO; -DIAZ2TAB PO; -DOXY100C76 PO; -DVN160125 PO; -LEVO88TA PO; -MECL1TAB42 PO; -OMEP20CA59 PO; -PRAV20TA PO; -RIZA10TA18 PO; +ROPIVACAINE 0.5% 5 MG/ML 30 ML VIAL ONE; -TRAM-10 PO; -URSO300C4 PO; -VERA120T8 PO
[2024-05-08] MEDS ORDERED: fentaNYL citrate PF 100 MCG/2 ML VIAL ONE (07:23)
[2024-05-08] MEDS: LR 500ML BOLUS, THEN 15ML/HR IV SCH (07:24)
[2024-05-08] MEDS: LR 60ML/HR IV SCH (07:25)
[2024-05-08] MEDS ORDERED: ATROPINE SULFATE 0.1 MG/ML 10ML SYR IV PRN (07:44)
[2024-05-08] MEDS ORDERED: ePHEDrine sulfate 50 MG/ML AMP IV PRN (07:44)
[2024-05-08] MEDS ORDERED: fentaNYL citrate PF 100 MCG/2 ML VIAL IV PRN (07:44)
[2024-05-08] MEDS ORDERED: ONDANSETRON INJ 2 MG/ML 2 ML VIAL IV PRN (07:44)
[2024-05-08] MEDS: TRANEXAMIC ACID 1,000 MG **IV Pre-op IV SCH (08:43)
--- NOTE | 2024-05-08 08:58 | Discharge Summary ---
Date of Service May 09, 2024 Admission HPI Per Admitting Provider Osteoarthritis left knee pain left knee status post left total knee replacement Principal Diagnosis Osteoarthritis left knee Discharge Data Allergies Allergy/AdvReac Type Severity Reaction Status Date / Time Penicillins Allergy Mild Rash Verified 05/08/24 07:03 clarithromycin [From Biaxin] Allergy Unknown Unknown Verified 05/08/24 07:03 oxycodone Allergy Unknown Severe Verified 05/08/24 07:03 nausea/vomiting topiramate [From Topamax] Allergy Vomiting Verified 05/08/24 07:03 codeine AdvReac Intermediate Upset Verified 05/08/24 07:03 stomach latex AdvReac Intermediate Rash Verified 05/08/24 07:03 Sulfa (Sulfonamide AdvReac Mild GI upset Verified 05/08/24 07:03 Antibiotics) adhesive AdvReac Unknown Rash, Verified 05/08/24 07:03 redness Vaccinations None Consultations None Procedures Performed Operation Date: 05/08/24 08:50 <No data on this case meets the specified criteria> Cemented left total knee replacement Ordered Studies 05/08/24 05:00 US - OR guided needle placemen Routine Hospital Course (1) Status post left knee replacement: Total Time Total Time Spent Total Time Spent (In Minutes): 5 Discharge Plan Discharge Items Reason For Visit: Left Knee Osteoarthritis Discharge Diagnosis: Same Condition on Discharge: Good Goals: Resume mobilization Activity: Per Instructions section Lifting: Wait until after follow-up appointment Bathing: Keep incision dry Sexual Activity: Wait until after follow-up appointment Exercise/Sports: Wait until after follow-up appointment Call non-emergency contact if: your temperature is above 101.5, your wound has increased redness, your wound has increased drainage and your wound pain has increased Follow-up/Referrals: Ketan Dial MD [Primary Care Provider] - Addtl Attending Provider Instructions: DIET: * Resume previous diet. MEDICATIONS: * Please take your prescriptions as instructed at your pre-op appointment and/or see medication discharge instructions listed above. * If concerns develop, call your physician's office at . SPECIAL CARE INSTRUCTIONS: * Ice/Elevate as instructed. * Keep dressing clean, dry, intact. * Your surgical extremity may be discolored due to prepping agents used on the skin. A bluish-green tint is a normal variant and should not cause alarm. Call your doctor at [phone] if: * Temperature above 101 degrees * Pain not relieved by pain medicine ordered * There is increased drainage or redness from any incision * You have any unanswered questions, problems or concerns. FOLLOW UP VISIT: * If not already scheduled, please call the office at to schedule a follow-up appointment. Pending Studies at Discharge: Yes (Bone pathology) Stand-Alone Forms: My [facility] Medications and DC Order Prescriptions: No Action Prolia 60 mg/mL syringe 60 mg subcut .[id number] meclizine 25 mg tablet 25 mg PO TID PRN (Reason: vertigo) Qty: 90 3RF rizatriptan [Maxalt] 10 mg tablet 10 mg PO DAILY PRN (Reason: migraine headache) Qty: 10 5RF pravastatin 20 mg tablet 20 mg PO HS Qty: 90 3RF Rx Instructions: TAKE ONE TABLET BY MOUTH HS verapamil 120 mg capsule,ext rel. pellets 24 hr 120 mg PO QAM Qty: 90 3RF hydrocodone-acetaminophen 5-325 mg tablet 1 tab PO Q8H PRN (Reason: Pain) Qty: 90 0RF aspirin [Yuliet Low Dose Aspirin] 81 mg tablet,delayed release (DR/EC) 81 mg PO HS ursodiol [OLIVIA Forte] 500 mg tablet 500 mg PO BID ondansetron HCl 4 mg tablet 4 mg PO Q8H PRN (Reason: nausea and vomiting) fluticasone propion-salmeterol [Advair Diskus] 250-50 mcg/dose blister with device 1 inh INHALATION QAM PRN (Reason: asthma symptoms) Qty: 60 5RF Rx Instructions: 1 inhalation per day levothyroxine 137 mcg tablet 137 mcg PO QAM Qty: 90 3RF clindamycin HCl 300 mg Capsule 600 mg PO DAILY PRN (Reason: DENTAL WORK) cholecalciferol (vitamin D3) [Vitamin D3] 2,000 unit Tablet 2,000 unit PO QAM prednisone 5 mg Tablet 5 mg PO QAM cyanocobalamin (vitamin B-12) 1,000 mcg Tablet 1,000 mcg PO QAM losartan 50 mg tablet 50 mg PO QAM hydrochlorothiazide 25 mg tablet 25 mg PO QAM omeprazole 20 mg capsule,delayed release(DR/EC) 20 mg PO QAM Rx Instructions: TAKE 1 CAPSULE BY MOUTH ONCE DAILY IN THE MORNING diphenhydramine-acetaminophen [Tylenol PM Extra Strength] 25-500 mg Tablet 1 tab PO HS PRN (Reason: Sleep+pain) Admission Data Admit Date/Time: 05/08/24 11:09 Attending Provider: Thomas Hurd Admit Provider: Thomas Hurd Primary Care Provider: Ketan Dial Other Providers: [facility]; [facility]
[2024-05-08] MEDS: ceFAZolin 2000MG 2,000 MG/15 ML SYR IV SCH ×2 (09:08→16:51)
[2024-05-08] MEDS: ORTHO JOINT ANESTHETIC ONE (09:41)
[2024-05-08] MEDS: TRANEXAMIC ACID 1,000 MG **IV Intra-op IV SCH (10:09)
[2024-05-08] MEDS: ROPIVACAINE 0.5% HCL/PF 246 MG, Ketorolac (*for OR use only*) 30 MG, EPINEPHrine 30MG/3... INFIL SCH (10:24)
[2024-05-08] MEDS ORDERED: PROPOFOL IV EMULSION 10 MG/ML 20 ML VIAL IV ONE (10:29)
--- NOTE | 2024-05-08 10:40 | Post Operative Brief Note ---
Immediate Post Op Note Date of Surgery May 08, 2024 Pre & Post Diagnosis Operation Date: 05/08/24 08:50 <No data on this case meets the specified criteria> Osteoarthritis left knee pre and postop diagnosis same operation performed cemented left total knee replacement I identified the patient and participated in the time-out.: Yes Procedure Operation Date: 05/08/24 08:50 <No data on this case meets the specified criteria> Surgeon Thomas Hurd MD Corporate Representative Vonda/Dion Estimated Blood Loss 150 Findings Consistent with Post-Op Diagnosis Severe medial and patellofemoral osteoarthritis varus alignment slight flexion deformity Fluids See anesthesia report Complications None
--- NOTE | 2024-05-08 10:43 | Operative Report ---
Post Operative Report Pre & Post Diagnosis Operation Date: 05/08/24 08:50 <No data on this case meets the specified criteria> Osteoarthritis left knee pre and postop diagnosis same I identified the patient and participated in the time-out.: Yes Procedure Operation Date: 05/08/24 08:50 <No data on this case meets the specified criteria> Cemented left total Surgeon Thomas Hurd MD Inseminator Vonda/Dion Estimated Blood Loss 150 Findings Consistent with Post-Op Diagnosis Severe medial and patellofemoral osteoarthritis Fluids See anesthesia report Specimens Bone pathology Drains None Complications None Indications Severe pain progressive x-ray change Description of Procedure After the patient was appropriate notified site verified consent verified antibiotics confirmed to be given the left lower extremity was prepped and draped in usual routine fashion. The tourniquet was attempted be utilized but it was not effective so was let down. Procedure was done without any tourniquet. An anteromedial approach to the knee was made full-thickness flaps raised arthrotomy performed synovectomy completed bleeding points controlled electrocautery. Distal femur then entered. Cruciates resected tibia subluxated menisci resected. Distal femur resected 11 mm proximal tibia 4 mm the extension gap was excellent. Femur was sized to a size 5 the tibia to a size 4 size . Size 5 cutting block was applied to the femur and the appropriate anterior posterior condylar and chamfer cuts made. Flexion gap was then checked and was excellent. Posterior capsule was then injected with Ortho mix. The box cut was then made a size 5 fit well the lug holes made. Tibia was then broached and reamed to a size 4 and a 6 mm spacer size 5 matching the femur allowed excellent stability in both midrange full flexion and full extension and the patella tracked well. The patella was then resected leaving about 14 mm and a 38 button applied. Ortho mix was then injected all about the knee. The knee was then irrigated with Pulsavac Betadine after soaking in 2 minutes for Betadine it was then cleaned and then implants cemented into position tibia femur and patella in that order at 14 minutes the knee was inspected there was no cement removal required the knee was irrigated with Pulsavac Betadine and then the permanent liner seated the knee reduced. It was then closed at 40 degrees of flexion with #2 Vicryl 2-0 Vicryl standstill clips appropriate dressing applied. Summary of implants size 5 left femur size 4 rotating platform tray size 38 patella size 5 x 6 rotating platform insert posterior cruciate substituting this is the ATT UNE DePTrailburning total knee system. DVT PE prophylaxis per protocol. Blood loss was roughly 150 cc as tourniquet was not utilized. Patient received and second dose of TXA during closure. Bone pathology pending. Family contacted. I attest to the content of the Intraoperative Record and any orders documented therein. Any exceptions are noted below.
--- NOTE | 2024-05-08 10:44 | Orthopedic Progress Note ---
Date of Service May 08, 2024 Orthopedic Progress Note Patient tolerated total knee replacement well. Vital signs are stable she is afebrile denies chest pain shortness of breath fever chills nausea vomiting headache. Family contacted. X-ray pending. DVT prophylaxis per protocol. Case management to finalize discharge plans.
--- NOTE | 2024-05-08 10:53 | Operative Report ---
Post Operative Report Pre & Post Diagnosis Operation Date: 05/08/24 08:50 Pre-Op Diagnosis: Left Knee Degenerative Joint Disease Post-Op Diagnosis: Left Knee Degenerative Joint Disease I identified the patient and participated in the time-out.: Yes Procedure Operation Date: 05/08/24 08:50 Actual Procedures p Left Total Knee Arthroplasty, Cemented - Thomas Hurd MD Surgeon Thomas Hurd MD Mailing Section Clerk Vonda/Dion Estimated Blood Loss 150 Findings Consistent with Post-Op Diagnosis Specimens Bone pathology Description of Procedure Patient underwent regional anesthesia, she was brought to the operating manage underwent sedation, the left lower extremity was prepped and draped in usual sterile fashion. Surgical timeout was performed. Patient underwent a left total knee arthroplasty, please see Dr. Hurd's operative report for full details. I was present and assisted with soft tissue retraction, bone cuts, limb positioning, hardware placement, wound closure, postoperative dressing placement. Patient was awakened and taken to the recovery room in stable condition. I attest to the content of the Intraoperative Record and any orders documented therein. Any exceptions are noted below.
--- NOTE | 2024-05-08 11:14 | Operative Report ---
Post Operative Report Pre & Post Diagnosis Operation Date: 05/08/24 08:50 Pre-Op Diagnosis: Left Knee Degenerative Joint Disease Post-Op Diagnosis: Left Knee Degenerative Joint Disease I identified the patient and participated in the time-out.: Yes Procedure Operation Date: 05/08/24 08:50 Actual Procedures p Left Total Knee Arthroplasty, Cemented - Thomas Hurd MD Surgeon CRISS Hurd MD Epic Prelude Analyst Vonda/Dion AHLL Estimated Blood Loss 150 Findings Consistent with Post-Op Diagnosis see operative report Specimens see operative report Drains none Complications none Disposition Accompanied Patient To Recovery: Yes Indications This 78-year-old female presented to the office with complaints of persisting left knee pain. She had tried conservative care measures without improvement. She elected to proceed with surgical intervention after being educated about potential risks and outcomes. Preoperative imaging was obtained. Description of Procedure The patient was administered a spinal anesthetic and then taken to the operating room where she was given sedation. She was prepped and draped in the usual sterile fashion. Please see Dr. Hurd's operative report for specifics of the procedure. I was present for the entire case from initial patient positioning through final wound closure. Assistance was provided in tissue retraction, hemostasis, trial implant placement, final implant placement, and final wound closure. The patient was taken to the recovery room in satisfactory condition. I attest to the content of the Intraoperative Record and any orders documented therein. Any exceptions are noted below.
--- NOTE | 2024-05-08 12:49 | Anesthesiology Progress Note ---
Date of Service May 08, 2024 Anesthesia Post Procedure Vital Signs Vital Signs: Temp Pulse Pulse Resp BP Pulse Ox O2 Del Method 05/08/24 12:30 69 18 114/70 94 Room Air 05/08/24 12:20 66 16 128/70 98 Room Air 05/08/24 12:10 98.4 F 61 12 114/69 95 Room Air 05/08/24 12:00 61 16 115/66 98 Room Air 05/08/24 11:50 66 17 112/65 97 Room Air 05/08/24 11:40 62 15 126/68 98 Room Air 05/08/24 11:30 61 17 114/68 97 Room Air 05/08/24 11:20 64 17 125/66 97 Room Air 05/08/24 11:10 65 16 114/65 97 Room Air 05/08/24 11:00 70 22 103/67 97 Room Air 05/08/24 10:52 96.8 F L 74 12 104/62 99 Room Air 05/08/24 07:11 98.4 F 75 20 154/88 H 96 Room Air Transfer of Care Handoff Completed per policy Notes Mental Status: alert / awake / arousable and participated in evaluation Patient Amnestic to Procedure: Yes Nausea / Vomiting: adequately controlled Pain: adequately controlled Airway Patency, RR, SpO2: stable & adequate BP & HR: stable & adequate Hydration State: stable & adequate Neuraxial Anesthesia: was administered and sensory block is resolving Anesthetic Complications: no major complications apparent and Pt Satisfied with anesthetic care
--- NOTE | 2024-05-08 13:10 | Anesthesiology Progress Note ---
Date of Service May 08, 2024 Anesthesia Post Procedure Vital Signs Vital Signs: Temp Pulse Pulse Resp BP Pulse Ox O2 Del Method 05/08/24 13:00 36.6 C 67 14 130/72 96 Room Air 05/08/24 12:50 68 12 125/69 96 Room Air 05/08/24 12:40 64 16 124/63 99 Room Air 05/08/24 12:30 69 18 114/70 94 Room Air 05/08/24 12:20 66 16 128/70 98 Room Air 05/08/24 12:10 36.9 C 61 12 114/69 95 Room Air 05/08/24 12:00 61 16 115/66 98 Room Air 05/08/24 11:50 66 17 112/65 97 Room Air 05/08/24 11:40 62 15 126/68 98 Room Air 05/08/24 11:30 61 17 114/68 97 Room Air 05/08/24 11:20 64 17 125/66 97 Room Air 05/08/24 11:10 65 16 114/65 97 Room Air 05/08/24 11:00 70 22 103/67 97 Room Air 05/08/24 10:52 36.0 C L 74 12 104/62 99 Room Air 05/08/24 07:11 36.9 C 75 20 154/88 H 96 Room Air Transfer of Care Handoff Completed per policy Notes Mental Status: alert / awake / arousable Patient Amnestic to Procedure: Yes Nausea / Vomiting: adequately controlled Pain: adequately controlled Airway Patency, RR, SpO2: stable & adequate BP & HR: stable & adequate Hydration State: stable & adequate Neuraxial Anesthesia: was administered and sensory block is resolving Anesthetic Complications: no major complications apparent and Pt Satisfied with anesthetic care
--- OUTSIDE RECORDS SUMMARY | 2024-05-08 13:17 | External Medical Summary | Continuity of Care Document ---
Author Name Unknown Organization [id number] Address [address] [place] [id number] Care Team Providers Care Bladder Tier Name Role Phone Ketan Dial Primary Care Physician [phone] [id number] Date(s): 05/01/24 - 05/01/24 [facility] [employer] [id number] [address] [place], [place] [id number] Encounter Diagnosis Callus(Discharge Diagnosis) - 05/01/24 Tinea unguium(Discharge Diagnosis) - 05/01/24 Peripheral vascular disease(Discharge Diagnosis) - 05/01/24 Discharge Disposition: Home or Self Care Attending Physician: XIMENA Echeverria Christina L Referring Physician: MD Dial Jeffrey W Allergies, Adverse Reactions, Alerts Substance Criticality Severity Reaction Reaction Severity Status codeine vomit nausea Active Percocet 5/325 Low blood pressure Active penicillins hives Active sulfa drugs vomit nausea Active Adhesive bandage red and raw , irritation Active Latex Rash Active Assessment and Plan Extracted from: Title:Follow Up Visit Author:XIMENA Echeverria, Chelsie Brush Date:05/01/24 1.Callus Area debrided with #15 blade to tolerance, no bleeding or cellulitis noted verbal consent obtained for debridement Recommend moisturizing lotion to feet daily Recommend offloading pads over the area for pressure relief 2.Tinea unguium -Patient unable to provide self care to toenails due to PVD - verbal consent obtained for debridement -Recommend toenail debridement -Patient had toenails of bilateral digits 1-5 debrided using nail nippers to tolerance, no bleeding noted -Patient instructed to use emery board to nails once per week -Patient had no ingrown toenails or infection noted -Patient is to follow up in6 months for treatment if needed in the future 3.Peripheral vascular disease Immunizations Given and Recorded Vaccine Date Status Refusal Reason SARS-CoV-2 (COVID-19) mRNA-1273 vaccine 07/05/21 R ecorded SARS-CoV-2 (COVID-19) mRNA-1273 vaccine 10/23/20 R ecorded SARS-CoV-2 (COVID-19) mRNA-1273 vaccine 09/24/20 R ecorded influenza virus vaccine, inactivated 05/31/18 Give n influenza virus vaccine, inactivated 06/19/17 Eron rded Medications acetaminophen-hydrocodone 325 mg-5 mg oral tablet Start: 01/02/24 11:22:00 AM EDT, See Instructions, Disp# 60 tab, Refills: 0, 1 tab PO bid prn pain, PRN: as needed for pain, Pharmacy: [facility] Start Date: 01/02/24 Status: Ordered Aspir 81 oral delayed release tablet Start: 10/09/20 2:20:00 PM EST, 1 tab, PO, Daily Start Date: 10/09/20 Status: Ordered clindamycin 300 mg oral capsule Start: 09/23/13 8:07:00 AM EST, 1 cap, PO, qid, Disp# 12 cap, Refills: 1, Pharmacy: [facility] Start Date: 09/23/13 Stop Date: 10/09/13 Status: Ordered Diovan HCT 160 mg-12.5 mg oral tablet Start: 10/02/12 4:09:00 PM EST, 1 tab, PO, Daily Start Date: 10/02/12 Status: Ordered Eliquis 2.5 mg oral tablet Start: 04/26/24 4:35:00 PM EDT, 1 tab, PO, bid, Disp# 56 tab, Pharmacy: [facility], Earliest Fill Date: 05/08/24 Start Date: 04/26/24 Stop Date: 06/05/24 Status: Ordered EpiPen 2-Dudley 0.3 mg injectable kit Start: 05/21/19 11:36:00 AM EDT, 0.3 mg =, IM, ONCE, Disp# 1 packet, USe as directed, PRN: as neededfor anaphylaxis, Pharmacy: [facility] Start Date: 05/21/19 Status: Ordered hydroxychloroquine 200 mg oral tablet Start: 11/01/21 5:47:00 PM EST, See Instructions, Disp# 90 tab, Refills: 3, TAKE 1 TABLET BY MOUTH ONCE DAILY, Pharmacy: [facility] Start Date: 11/01/21 Status: Ordered levothyroxine 112 mcg (0.112 mg) oral tablet Start: 06/30/21 3:46:00 PM EDT, 1 tab, PO, Daily Start Date: 06/30/21 Status: Ordered losartan Start: 11/18/21 1:59:00 PM EST, 50 mg =, Daily Start Date: 11/18/21 Status: Ordered Maxalt-RECREATION ACTIVITIES COORDINATOR Start: 03/03/15 11:20:00 AM EDT, 10 mg =, PO, ONCE, PRN: migraine Start Date: 03/03/15 Status: Ordered meclizine 25 mg oral tablet TAKE 1 TABLET BY MOUTH 3 TIMES DAILY NEEDED FOR VERTIGO Start Date: 12/26/23 Status: Ordered MiraLax oral powder for reconstitution Start: 02/23/22 2:17:00 PM EDT, 17 g =, PO, Daily Start Date: 02/23/22 Status: Ordered omeprazole 20 mg oral delayed release capsule Start: 08/15/17 1:31:00 PM EST, 1 cap, PO, Daily Start Date: 08/15/17 Status: Ordered pravastatin 20 mg oral tablet Start: 12/26/23 8:45:00 AM EDT, 1 tab, PO, [facility] Start Date: 12/26/23 Status: Ordered predniSONE 1 mg oral tablet Start: 01/02/24 11:22:00 AM EDT, See Instructions, Disp# 360 tab, Refills: 1, 4 tab po daily, Pharmacy: [facility] Start Date: 01/02/24 Status: Ordered predniSONE 5 mg oral tablet Start: 12/26/23 8:44:00 AM EDT, 1 tab, PO, Daily Start Date: 12/26/23 Status: Ordered Prolia Start: 12/26/23 8:43:00 AM EDT Start Date: 12/26/23 Status: Ordered Savanna Forte 500 mg oral tablet Start: 04/29/24 11:40:00 AM EDT, 1 tab, PO, bid, Disp# 180 tab, Refills: 5, Pharmacy: [facility] Start Date: 04/29/24 Stop Date: 10/21/25 Status: Ordered verapamil Start: 11/18/21 2:00:00 PM EST, 120 mg =, Daily Start Date: 11/18/21 Status: Ordered Vitamin B12 Start: 11/29/22 11:58:00 AM EDT, PO, Daily Start Date: 11/29/22 Status: Ordered Vitamin D3 Start: 11/18/21 1:58:00 PM EST, 2,000 units, PO, Daily Start Date: 11/18/21 Status: Ordered Zofran 4 mg oral tablet Start: 07/29/22 8:28:00 AM EST, 1 tab, PO, q8h, Disp# 30 tab, Refills: 1, PRN: as needed for nausea/vomiting, Pharmacy: [facility] Start Date: 07/29/22 Status: Ordered Mental Status 05/01/24 Barriers to Learning one year None evide nt, Other: present Mandatory Health Literacy Documentation Yes Health Literacy Communication Barriers N ever Primary Language Burmese Problem List Condition Confirmation Course Effective Dates Status H ealth Status Informant Abnormal granulation tissue Confirmed Active Change in bowel habits Confirmed Active Arthritis Confirmed Active Arthritis of midfoot Confirmed Active H/O total knee replacement Confirmed Active Asthma Confirmed Active Benign neoplasm of skin Confirmed Active Multiple nevi Confirmed Active Breast ca Confirmed Active Callus Confirmed Active Nona infection Confirmed Active Carpal tunnel syndrome Confirmed Active Changing skin lesion Confirmed Active Dysplastic nevus Confirmed Active Atypical nevus Confirmed Active H/O Malignant melanoma Confirmed Active History of dysplastic nevus Confirmed Active S/P carpal tunnel release Confirmed Active HTN (hypertension) Confirmed Active Osteophyte, left foot Confirmed Active Iliotibial band syndrome Confirmed Active Sacroiliitis Confirmed Active Intertrigo Confirmed Active Left knee pain Confirmed Active Lentigo Confirmed Active Wound infection Confirmed Active Lower abdominal pain Confirmed Active Lichen planus Confirmed Active Swollen lymph nodes Confirmed Active Nausea and vomiting Confirmed Active Tinea unguium Confirmed Active Osteoarthritis of foot, left Confirmed Active Osteoarthritis of left knee Confirmed Active Osteoporosis Confirmed Active Pain in wrist 1 Confirmed Active Peripheral vascular disease Confirmed Active Primary biliary cholangitis Confirmed Active Reflux Confirmed Active Sacroiliac joint pain Confirmed Active Scar Confirmed Active Seborrheic keratoses Confirmed Active Senile hyperkeratosis Confirmed Active Telogen effluvium Confirmed Active Posterior tibial tendinitis Confirmed Active Trochanteric bursitis Confirmed Active Vertigo Confirmed Active 1carpal tunnel B/L Diagnosis Diagnosis Type Effective Dates Health Status Clinical Service Informant Tinea unguium Discharge Diagnosis 05/01/24 Non-Specified Peripheral vascular disease Discharge Diagnosis 05/01/24 Non-Specified Callus Discharge Diagnosis 05/01/24 Non-Specified Procedures Procedure Date Related Diagnosis Body Site Status CT of abdomen and pelvis 1 08/01/22 Completed Ultrasound--RUQ 2 11/01/21 [facility] ed Biopsy of liver 3 10/14/21 [facility] ed Surgical pathology service 4 10/14/21 Completed Shave biopsy 5 08/10/21 Completed Shave biopsy and cauterisation of skin 11/20/18 Completed Shave biopsy of skin 11/21/17 Comp leted Shave biopsy of skin 05/17/17 Comp leted Punch biopsy of skin 09/22/16 Comp leted Shave biopsy of skin 05/12/16 Comp leted Infusion 6 11/2015 Completed Shave biopsy 10/21/14 Completed Infusion 7 10/2014 Completed Shave biopsy and cauterizati on of skin 8 04/21/14 Completed Shave biopsy and cauterization of skin 10/21/13 Completed Shave biopsy of skin 07/15/13 Comp leted Shave biopsy of skin 9 12/11/12 Co mpleted Right TKR 07/15/10 Completed Lumpectomy of breast 1998 C ompleted Carpal tunnel release Com pleted Cataract Completed Cholecystectomy Completed ear surgery, right 11 Com pleted Excision Completed Hysterectomy 12 Completed Knee surgery, right 13 Co mpleted Punch biopsy Completed Shave biopsy of skin Comp leted Stapedectomy Completed Tooth 14 Completed 11) No acute process wtihin the abdomen or pelvis. 2) No bowel obstruction. No bowel wall thickening 3) Colonic diverticulosis without evidence for acute diverticulitis 2Unremarkable sonograpic assessment of the RUQ noting s/p cholecystectomy 3Completed core-biopsy of the liver as above. 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 5left back 6Reclast 7reclase 8x2 9x's 2 10with radiation 11during 12during during 14tooth capped lower right jaw-Jul 2015-as per pt Social History Social History Type Response Smoking Status Never smoked cigaret gonzalez Sex Female Sex Representation Female (finding) Ortho Outpt Note * XIMENA Echeverria, Roxann Brush: PERFORM Event Display: Ortho Outpt Note Authored Date: [id number] Chief Complaint krystian raheem Primary Care Provider MD Jayro, Ketan Abdul Subjective Patient is a very pleasant 78-year-old female presenting today for care last seen October 25, 2023. -No acute concerns noted today Review of Systems No pertinent positives Objective Physical Exam Problem focused bilateral feet: Vascular: dorsalis pedis pulse is palpable 1 out of 4 posterior tibial pulses nonpalpable Pedal hair is noted to be absent, capillary refill timeis less than 3 seconds, skin turgor is good to all digits of both feetturgor pressure is good to all digits of both feet, coolness noted to distal extremities No acute swellingor pitting edema, skin is thinwithvaricosities present bilateraldorsal aspect of the feetand medial ankles. Neurologic: Neurovascular status is intact all digits of both feetincluding gross sensation intact. Orthopedic examination:_ left foot dorsal exostosis improved status post injectionno tenderness noted today. right hallux valgusnotes occasional arthritic pain,stable at today's visit Submetatarsal 1 callusleft foot recommend debridement Right foot dorsal aspect of the second toesynovial cyst stable without pain Dermatologic examination: Toenails of digits 1 through 5 of bilateral feet with elongation, dystrophy, discoloration, thickening greater than 1 mm and incurvation recommend debridement Callus x1left footrecommend debridement left foot Assessment/Plan 1.Callus Area debrided with #15 blade to tolerance, no bleeding or cellulitis noted verbal consent obtained for debridement Recommend moisturizing lotion to feet daily Recommend offloading pads over the area for pressure relief 2.Tinea unguium -Patient unable to provide self care to toenails due to PVD - verbal consent obtained for debridement -Recommend toenail debridement -Patient had toenails of bilateral digits 1-5 debrided using nail nippers to tolerance, no bleedingnoted -Patient instructed to use emery board to nails once per week -Patient had no ingrown toenails or infection noted -Patient is to follow up in6 months for treatment if needed in the future 3.Peripheral vascular disease Electronic Signature on File Electronically Reviewed/Signed by: Roxann Echeverria DPM Author Signature Dt/Tm:05/01/2024 02:10 PM Division of Sports Medicine CLR Patient Care team information Care Team Personnel Name: MARTIN Felipe Janet Griffith Position: Nurse Pract - Pulmonary Med Member Role: Lifetime Relationship Address: [address] [place] [id number] [place] Name: MD Dial Jeffrey W Position: Referring DIRECT Member Role: Primary Care Provider Address: [facility] [address] [facility] [address] [place] [id number] [place] Care Team Related Persons Name: TIFFANIE SAMANO
[2024-05-08] MEDS ORDERED: ALUMINUM/MAGNESIUM SUSP 30 ML UDC PO PRN (13:32)
[2024-05-08] MEDS ORDERED: diphenhydrAMINE 50 MG/ML VIAL IV PRN (13:32)
[2024-05-08] MEDS ORDERED: bisacodyL 10 MG SUPP PR PRN (13:32)
[2024-05-08] MEDS ORDERED: NALOXONE HCL 0.4 MG/1 ML VIAL/CARP IV PRN (13:32)
[2024-05-08] MEDS ORDERED: MECLIZINE HCL 25 MG TAB PO PRN (13:32)
[2024-05-08] MEDS ORDERED: MAGNESIUM HYDROXIDE SUSP 30 ML UDC PO PRN (13:32)
[2024-05-08] MEDS: SODIUM CHLORIDE 0.9% 1,000 ML IV SCH (13:56)
--- NOTE | 2024-05-08 13:57 | Orthopedic Progress Note ---
Date of Service May 08, 2024 Assessment & Plan Admission and Anticipated Discharge Date Admission Date: May 08, 2024 Orthopedic Progress Note Afternoon rounds checked. She is doing well just came up from the recovery room. Spinal has been the taking some time to wear off. She now has some active plantar and dorsiflexion of the toes of the left foot the operative side not on the right side yet. Wound dressing clean dry and intact. Denies chest pain shortness of breath fever chills nausea vomiting or headache. Vital signs are stable she is afebrile. Assessment doing well spinal started to wear off its actually wearing off more on the operative side and the nonoperative side at this point continue with observation do not get her out of bed until she is able to lift her leg. She should wear knee immobilizer for out of bed activities only. When she is sitting in a chair she can move it but when she is up transporting to and from the chair to her from the bathroom walking the jon she should have the knee immobilizer on. Start anticoagulation tomorrow.
[2024-05-08] MEDS ORDERED: VANCOMYCIN CONSULT ACTIVE PRN (13:58)
[2024-05-08] MEDS ORDERED: VANCOMYCIN HCL 1,500 MG in SODIUM CHLORIDE 0.9% 500 ML IV ONE (13:58)
[2024-05-08] MEDS: ACETAMINOPHEN 500 MG TAB PO SCH (13:59)
[2024-05-08] MEDS: KETOROLAC TROMETHAMINE 15 MG/ML VIAL IV SCH (13:59)
--- NOTE | 2024-05-08 15:01 | XRay Report ---
TWO VIEWS LEFT KNEE CLINICAL HISTORY: Postoperative examination. FINDINGS: AP and crosstable lateral portable views of the left knee are obtained. A left knee arthrop lasty is in near anatomic alignment. There has been undersurface remodeling of the patella. No acute fracture is seen. There are expected postoperative changes around the knee including skin clips, soft tissue edema, and subcutaneous gas. Advanced atherosclerotic calcification is seen in the popliteal artery. IMPRESSION: Expected postoperative changes status post left knee arthroplasty. No acute fracture is s een. ACT 112: Negative or not required by law. Electronically signed by: Nick Templeton M.D. 05/08/2024 3:00 PM
[2024-05-08] MEDS: VANCOMYCIN HCL 1,000 MG in SODIUM CHLORIDE 0.9% 250 ML IV ONE (15:17)
[2024-05-08] MEDS: FERROUS GLUCONATE 324 MG TAB PO SCH (16:52)
[2024-05-08] MEDS: ASCORBIC ACID 500 MG TAB PO SCH (16:52)
[2024-05-08] MEDS: traMADol HCL 50 MG TABLET PO PRN (16:53)
[2024-05-08] MEDS: ONDANSETRON INJ 2 MG/ML 2 ML VIAL IV PRN (17:42)
[2024-05-08 19:38] VITALS: RESP 18
[2024-05-08] MEDS: ASPIRIN 81 MG ECTAB PO SCH (20:36)
[2024-05-08] MEDS: SENNA 8.6 MG TAB PO SCH (20:36)
[2024-05-08] MEDS: DOCUSATE SODIUM 100 MG CAP PO SCH (20:36)
[2024-05-08] MEDS: PRAVASTATIN SOD 20 MG TAB PO SCH (20:36)
[2024-05-09] MEDS: HYDROmorphone INJ 0.5 MG/0.5 ML SYR IV PRN (00:13)
[2024-05-09] MEDS: METOCLOPRAMIDE HCL INJ 5 MG/ML 2 ML VIAL IV PRN (00:13)
[2024-05-09] MEDS: LEVOTHYROXINE SODIUM 137 MCG TABLET PO SCH (05:34)
[2024-05-09 06:23] LABS: Hematocrit (blood only) 29.2 % (37.0-47.0); Hemoglobin 9.6 g/dl (12.0-16.0); Mean Corpuscular Hemoglobin 29.2 pg (25.0-34.0); Mean Corpuscular Hgb Conc 32.9 g/dL (32.0-36.0); Mean Corpuscular Volume 88.8 fL (80.0-100.0); Platelet Count 151 K/uL (130-400); RDW Coefficient of Variation 14.6 % (11.5-14.5); Red Blood Count 3.29 M/uL (4.20-5.40); White Blood Count 8.28 K/ul (4.8-10.8)
--- NOTE | 2024-05-09 06:40 | Orthopedic Progress Note ---
Date of Service May 09, 2024 Assessment & Plan Admission and Anticipated Discharge Date Admission Date: May 08, 2024 Orthopedic Progress Note Postop day #1 status post left total knee replacement. Patient is doing well. Has a nausea in and around taking her tramadol. She feels better when she ate some crackers. She is requesting something for home. Will provide prescription for Zofran. She denies chest pain shortness of breath fever chills nausea vomiting headache. Vital signs are stable she is afebrile. Neurovascular check femoral sciatic nerve is normal. Does not Straight leg raise flexes to about 70 degrees. Wound dressing clean dry and intact. Calves nontender. A.m. labs pending. Assessment doing well status post left total knee replacement. Discharge to home with tramadol for pain and Zofran for nausea. Physicians assistants please provide prescriptions. Follow-up in 2 weeks.
[2024-05-09 06:59] LABS: Calcium 8.8 mg/dl (8.6-10.3); Potassium 3.7 mmol/L (3.5-5.1)
[2024-05-09 07:04] LABS: BUN Creatinine Ratio 21.2 (10-20); Creatinine Clr Calc Pharmacy 43.6 ml/min; Est GFR (African American) 62.4 ml/min; Est GFR (Non-African American) 53.8 ml/min
[2024-05-09 07:18] VITALS: PULSE 66; TEMP 97.7; O2SAT 92
[2024-05-09] MEDS: MULTIVITAMIN TAB PO SCH (08:01)
[2024-05-09] MEDS: CYANOCOBALAMIN (B-12) 500 MCG TABLET PO SCH (08:02)
[2024-05-09] MEDS: VERAPAMIL HCL 120 MG TABCR PO SCH (08:02)
[2024-05-09] MEDS: LOSARTAN POTASSIUM 50 MG TAB PO SCH (08:02)
[2024-05-09] MEDS: hydroCHLOROthiazide 25 MG TAB PO SCH (08:03)
[2024-05-09] MEDS: APIXABAN 2.5 MG TAB PO SCH (08:03)
[2024-05-09] MEDS: dexAMETHasone 10 MG in SYRINGE 0 ML IV SCH (08:06)
[2024-05-09] MEDS ORDERED: FLUTICASONE/VILANTEROL 200/25MCG 14 PUFFS/INHALER INH PRN (09:00)
--- NOTE | 2024-05-09 09:45 | Orthopedic Progress Note ---
Date of Service May 09, 2024 Assessment & Plan (1) Status post left knee replacement: Plan: The patient was educated regarding these findings. Her postsurgical dressings were changed today by me. Damon stocking was applied. She will leave this in place through the weekend. It can be changed on Monday by home health nursing as needed for swelling. Keep the incision dry until re-seen. Continue with ice and elevation. Continue using her walker for ambulation. Follow-up with me in 2 weeks as scheduled for staple removal. Written discharge instructions were provided. Prescriptions for tramadol 50 mg, Zofran 4 mg, and Eliquis 2.5 mg were sent to her pharmacy. Admission and Anticipated Discharge Date Admission Date: May 08, 2024 Subjective This 78-year-old female is seen today for reevaluation of her left knee. She is 1 day status post left total knee arthroplasty. She states she is doing well. Her pain is controlled. She has already finished her breakfast. She denies any numbness or tingling. No chest pain, shortness of breath, nausea, vomiting, or abdominal pain. She feels ready for discharge to home. She has already been out of bed. Review of Systems Review of Systems: Unchanged from yesterday. Physical Exam Physical Exam: General: Well-developed, well-nourished, elderly female, in no acute distress. Lying in bed. Alert and oriented. Skin: Warm dry with good turgor. Postsurgical dressings are in place on the left knee. Upon removal, she has minimal expected postoperative edema. No ecchymosis. Surgical incision is closed. Tayla are in place. Wound edges are well-approximated. No erythema. No drainage. Musculoskeletal: The patient has intact motor function of her right hip, knee, and ankle. She has nearly full terminal extension. Flexion to greater than 70 degrees. She is able to set her quad and perform a straight leg raise. Neurologic: Gross sensation is intact across the right leg by soft touch. Peripheral pulses are 2+. Results & Data Vital Signs (Past 12 Hours) Vital Signs Temp Pulse Resp BP Pulse Ox O2 Del Method 05/09/24 07:17 36.5 C 66 18 128/75 92 Room Air 05/09/24 03:35 36.4 C L 69 18 120/71 94 Room Air 05/08/24 22:58 36.6 C 65 18 139/75 95 Room Air Laboratory Results CBC obtained today shows a white count of 8.28. H&H of 9.6 and 29.2. Platelets 151,000. PRP this morning shows normal electrolytes. BUN of 21 with creatinine 0.99. Glucose today is 121.
[2024-05-09 10:34] VITALS: BP 134/86
== END 2024-05-09 11:20 | disposition home health service (06) ==
LOC: ASU 06:28 → 3E 06:28